=== PATIENT | female | born 1950 | race Caucasian/White ===

== ENCOUNTER 2020-01-19 14:10 | Observation (INO) | payer MEDICARE, SELFPAY ==
[2020-01-19] VITALS (8 sets, daily range): BP systolic 94–141; BP diastolic 51–65; PULSE 78–98; RESP 12–23; TEMP 35.6–36.5; O2SAT 95–100; BMI 43.7
--- NOTE | ~2020-01-19 | CT_ITS ---
EXAMINATION: CT facial bones w con DATE: 01/19/2020 16:04 INDICATION: Right facial pain and swelling TECHNIQUE: Computed tomography (CT) of the facial bones was performed with 75 cc Omnipaque 350 intrav enous contrast. The dose-length product was 607.00 mGy-cm. Automated exposure control and iterative r econstruction technique were employed. COMPARISON: None FINDINGS: There is mild inflammation of the right facial soft tissues without discrete abscess. There are multiple dental caries. There is mucosal thickening of the right maxillary sinus. Orbits are sym metric without disconjugate gaze. No post septal abnormalities. Nonenlarged cervical lymph nodes are likely reactive. No significant vascular abnormality. No intracranial abnormalities identified. IMPRESSION: 1. Mild inflammation of the right facial soft tissues consistent with cellulitis. No evidence for wal led off fluid collection to suggest abscess. Reviewed, dictated and finalized at location A. IMPRESSION: 1. Mild inflammation of the right facial soft tissues consistent with celluliti s. No evidence for walled off fluid collection to suggest abscess.
--- NOTE | ~2020-01-19 | XR_ITS ---
EXAMINATION: XR chest 2V 01/19/2020 16:02 INDICATION: Right-sided chest pain PROCEDURE: AP and lateral views of the chest COMPARISON: Comparison to multiple prior studies sequentially, with oldest reviewed study dated 05/31. FINDINGS: The lungs are clear. The cardiomediastinal silhouette is within normal limits. There are no pleural effusions. There is no pneumothorax suspected. Status post median sternotomy for CABG. IMPRESSION: 1: NO ACUTE CARDIOPULMONARY DISEASE. Reviewed, dictated and finalized at location A.
--- NOTE | 2020-01-19 14:43 | ECG_ITS ---
Measurements Intervals [place] Rate: 89 P: -35 [place]: 142 QRS: 94 QRSD: 136 T: 15 QT: 429 QTc: 522 Interpretive Statements SINUS OR ECTOPIC ATRIAL RHYTHM RIGHT BUNDLE BRANCH BLOCK BASELINE ARTIFACT- I, II, III ABNORMAL ECG Electronically Signed On 01-19-2020 18:03:42 CDT by Kalpesh Weems D.O.
[2020-01-19 15:01] LABS: Basophils Percent Auto 0.5 % (0.2-1.2); Eosinophils Absolute Auto 0.2 K/mm3 (0-0.3); Eosinophils Percent Auto 2.2 % (0-4.4); Hematocrit 37.5 % (37.0-47.0); Immature Granulocyte Absolute 0.03 K/mm3 (0.00-0.031); Immature Granulocyte Percent A 0.4 % (0-0.5); Lymphocytes Absolute Auto 1.65 K/mm3 (0.9-3.2); Lymphocytes Percent Auto 20.2 % (18.3-44.2); Mean Corpuscular HGB Conc 34.7 g/dl (32-36); Mean Corpuscular Hemoglobin 29.1 pg (26-34); Mean Corpuscular Volume 83.9 fl (80-100); Mean Platelet Volume 8.8 fl (7.4-10.4); Monocytes Absolute Auto 0.5 K/mm3 (0.1-0.6); Monocytes Percent Auto 6.1 % (2.6-8.5); Neutrophils Absolute Auto 5.8 K/mm3 (1.3-6.7); Neutrophils Percent Auto 70.6 % (45.5-73.1); Platelet Count Result 252 k/mm3 (150-375); Red Blood Count 4.47 M/mm3 (4.2-5.4); Red Cell Distribution Width 12.8 % (11.5-14.5); White Blood Count 8.2 K/mm3 (4.5-10.0)
[2020-01-19 15:15] LABS: INR 1.2; Prothrombin Time 14.5 Seconds (11.1-14.7)
[2020-01-19 15:16] LABS: Anion Gap 8 mmol/L (8-16); Blood Urea Nitrogen 12 mg/dL (7-17); Calcium 9.1 mg/dL (8.4-10.2); Carbon Dioxide 34 mmol/L (22-30); Chloride 98 mmol/L (98-107); Estimated CRCL calculation 65 ml/min; Estimated Glomerular Filt Rate > 60; Glucose 147 mg/dL (65-105); Partial Thromboplastin Time 29.9 SECONDS (22.3-36.8); Potassium 2.7 mmol/L (3.4-5.0); Sodium 140 mmol/L (137-145)
[2020-01-19 15:25] LABS: Troponin I 0.014 ng/mL (0.000-0.034)
--- NOTE | 2020-01-19 15:26 | ED.GENADULT ---
HPI - General Adult General Chief complaint: Unspecified Stated complaint: facial swelling Time Seen by Provider: 01/19/20 15:17 Source: patient History of Present Illness HPI narrative: Patient is a 69 y/o female complaining of right facial pain and swelling starting this morning. She describes her pain as stabbing and burning. She rates pain as 10/10 when her face is touched, but no pain at rest. There is no alleviating or exacerbating factor. She has no fever, chills or vomiting. She states that she had toothache a few days ago, but toothache currently. Related Data Home Medications Medication Instructions Recorded Confirmed Vitamin D3 1,000 BYMOUTH DAILY 02/13/19 02/26/19 Allergies Allergy/AdvReac Type Severity Reaction Status Date / Time aspirin Allergy Severe Vomiting, Verified 01/19/20 15:04 hives, SOB mold Allergy Severe Difficulty Verified 01/19/20 15:04 Breathing peanut Allergy Severe Wheezing Verified 01/19/20 15:04 pollen extracts Allergy Severe Wheezing Verified 01/19/20 15:04 chocolate flavor Allergy Unknown Hives Verified 01/19/20 15:04 corn Allergy Unknown Hives Verified 01/19/20 15:04 Review of Systems Constitutional: Constitutional: Denies chills, Denies fever(s), Denies headache(s) and Denies weakness Eyes: Eyes: Denies blurry vision ENT: Reports dental pain (resolved), Reports facial pain, Denies headache(s) and Denies neck pain Cardiovascular: Cardiovascular: Denies chest pain and Denies dyspnea Respiratory: Respiratory: Denies cough and Denies dyspnea Gastrointestinal: Gastrointestinal: Denies abdominal pain, Denies diarrhea, Denies nausea and Denies vomiting Genitourinary: Genitourinary: Denies hematuria and Denies dysuria Musculoskeletal: Musculoskeletal: Denies back pain and Denies neck pain Neurologic: Denies headache(s) and Denies weakness [facility] Past Medical History Medical History (Updated 01/19/20 @ 18:19 by Alice Timmons MD) Anxiety and depression Asthma CAD (coronary artery disease) Diabetes mellitus type II, controlled Diverticulosis Hypertension TIA (transient ischemic attack) Surgical History Surgical History H/O carotid endarterectomy (~03/2012) History of cholecystectomy (~2002) History of dilatation and curettage x 5-6 History of endometrial ablation History of tonsillectomy Hx of CABG (~2017) Family History Family History Sibling Hypertension Father Family history of malignant neoplasm Patient's father is Mother Family history of lung cancer COPD (chronic obstructive pulmonary disease) Chorea Social History Social History Smoking packs per day: 1 Smoking cigarettes per day: 20.0 Years smoked: 25 Smoking pack-years: 25.00 Smoking status: Former smoker Tobacco type: cigarettes Second hand tobacco smoke exposure: Yes Smoking end date: 03/20/99 Alcohol intake: never Substance use: never Gender identity (if verbalized by the patient): Female Spiritual care concerns: No (Pt states that she is evangelical.) Agree to blood products: Yes Exam Const: General: no acute distress and well developed Orientation/consciousness: oriented to person, oriented to place, oriented to time and patient oriented x3 HENMT: Head: normocephalic Ears: external ears normal General nose exam: Normal external nose present Face and sinus: erythema on the right and Facial tenderness on exam of face and sinuses on the right Eyes: General: appearance normal, both eyes and all related structures Conjunctivae: conjunctivae normal Neck: Neck: normal visual inspection and full ROM Chest: Chest palpation & inspection: normal inspection of the chest and no tenderness Resp: Effort & Inspection: normal respiratory effort Auscultation: clear to auscultation bilaterally
[2020-01-19 15:47] LABS: Lactic Acid Reflex 2.5 mmol/L (0.7-2.1)
[2020-01-19] MEDS: POTASSIUM CHLORIDE 20 MEQ TABLET 40 MEQ PO (16:36)
[2020-01-19] MEDS: SODIUM CHLORIDE 0.9% IV 1,000 ML 999 ML IV CONT (16:36)
[2020-01-19 17:21] LABS: Troponin I 0.022 ng/mL (0.000-0.034)
--- NOTE | 2020-01-19 18:00 | PC.NURSE ---
This patient, Rosana Ashley, was admitted to Medical Room 340-01. Patient/family oriented to hospital policies and general routines including ID bracelet, bed and alarms, visiting hours, pain management, procedures, bathroom and other care routines, personal items, smoking policy, room service/diet, and visiting hours. Information on how to activate the Rapid Response Team has been discussed. Patient/Family are encouraged to report perceived risks to care and to ask questions if they do not understand what they are told or what they should do.
[2020-01-19 18:33] LABS: Reflex Lactic Acid Yes or No Add Lactic
[2020-01-19 18:55] LABS: Glucose Point of Care 129 (65-105)
[2020-01-19 19:30] LABS: Lactic Acid 2.1 mmol/L (0.7-2.1)
[2020-01-19 21:36] LABS: Troponin I < 0.012 ng/mL (0.000-0.034)
[2020-01-20] VITALS (9 sets, daily range): BP systolic 117–148; BP diastolic 50–66; PULSE 67–94; RESP 14–18; TEMP 36.1–36.5; O2SAT 98–100
--- NOTE | 2020-01-20 01:28 | PC.NURSE ---
Daylight Savings Time For Daylight Savings Time Ending in the Fall - Clocks are moved back. For Daylight Savings Time Beginning in the Spring - Clocks are moved ahead. For [facility], the time of change occurs at 0200 hrs. Time is taken from the room server. This entry on the patient's chart recognizes the change in time reflected during documentation. Example: 2 entries for vital signs may be charted for 0200 hrs.
[2020-01-20 07:46] LABS: Hematocrit 35.7 % (37.0-47.0); Mean Corpuscular HGB Conc 33.6 g/dl (32-36); Mean Corpuscular Hemoglobin 28.7 pg (26-34); Mean Corpuscular Volume 85.4 fl (80-100); Mean Platelet Volume 9.1 fl (7.4-10.4); Platelet Count Result 221 k/mm3 (150-375); Red Blood Count 4.18 M/mm3 (4.2-5.4); White Blood Count 7.3 K/mm3 (4.5-10.0)
[2020-01-20 07:58] LABS: Anion Gap 8 mmol/L (8-16); Blood Urea Nitrogen 14 mg/dL (7-17); Calcium 8.9 mg/dL (8.4-10.2); Carbon Dioxide 32 mmol/L (22-30); Chloride 100 mmol/L (98-107); Estimated CRCL calculation 54 ml/min; Estimated Glomerular Filt Rate 49; Glucose 100 mg/dL (65-105); Sodium 140 mmol/L (137-145)
[2020-01-20 09:01] LABS: Glucose Point of Care 89 (65-105)
--- NOTE | 2020-01-20 10:14 | PM.IMHP ---
H&P: HPI History of Present Illness Date/Time: 01/20/20 10:14 Chief complaint: Right facial cellulitis Narrative: Date of admission: 01/19/2020 Date of discharge: 01/20/2020 Rosana Ashley is a 69 year old female with history of coronary artery disease, type 2 diabetes mellitus, HTN, HLD, and asthma who presented to the emergency department on 01/19/2020 with complaints of right-sided facial swelling which she noticed upon awakening that morning. For the previous 2 days, she had been complaining of a toothache. she has poor dentition and she notes that recently her lateral incisor broke well eating the [place] intact. She has not seen a dentist in many years. Her toothache resolved at the onset of her facial swelling. She reports sharp pain when she touches the bridge of her nose or under her eye. She has been able to chew and swallow without difficulty or pain. She has not had any trouble breathing. She has not had any visual changes, ear pain, neck pain, or headache. She does endorse seasonal allergies and complains of sinus congestion. Her right eye has been watering. Upon presentation to the ED, vital signs stable, no leukocytosis, potassium low at 2.7, lactic acid mildly elevated at 2.5, and facial CT showed mild inflammation of the right facial soft tissues consistent with cellulitis and no evidence of walled-off fluid collection to suggest abscess, no postseptal abnormalities, multiple dental caries, and mucosal thickening of right maxillary sinus. She received IV vancomycin and Zosyn in the ED. Review of Systems Review of Systems: Narrative: All systems reviewed with pertinent positive and negatives as per HPI. Additionally, she denies nausea, vomiting, diarrhea, fever, chills. No abdominal pain. She denies dizziness, lightheadedness, or weakness. She complains of sinus congestion but denies any drainage. She endorses numbness and tingling in her lower extremities. She endorsed mild wheezing this morning that resolved. She denies dysuria, hematuria, or other irritative voiding symptoms. She denies chest pain or palpitations. [facility] Past Medical History Medical History (Updated 01/20/20 @ 11:11 by Lyndsey Dey PA-C) Anxiety and depression Asthma CAD (coronary artery disease) Diabetes mellitus type II, controlled With peripheral neuropathy Diverticulosis Hypertension Seasonal allergies TIA (transient ischemic attack) Surgical History Surgical History H/O carotid endarterectomy (~03/2012) History of cholecystectomy (~2002) History of dilatation and curettage x 5-6 History of endometrial ablation History of tonsillectomy Hx of CABG (~2016) Family History Family History Sibling Hypertension Father , Unknown history No problems noted. Mother Family history of lung cancer COPD (chronic obstructive pulmonary disease) Social History Social History (Updated 01/20/20 @ 10:44 by Lyndsey Dey PA-C) Social History: Ms. Ashley lives at home with her son, Presley, whom she designates as her surrogate decision maker. She would like to be a full code. Her PCP is Dr. Polanco. She is retired from [employer]. She is independent in her ADLs. She quit smoking 25 years ago. She does not use alcohol or drugs. Smoking packs per day: 1 Smoking cigarettes per day: 20.0 Years smoked: 25 Smoking pack-years: 25.00 Smoking status: Former smoker Tobacco type: cigarettes Second hand tobacco smoke exposure: Yes Smoking end date: 03/20/99 Alcohol intake: current Drinks per week: 0 Substance use: never Substance use type: does not use Living arrangements: with family Occupation/Education: retired Gender identity (if verbalized by the patient): Female Spiritual care concerns: No Agree to blood products: Yes Meds Home
[2020-01-20] MEDS: CHOLECALCIFEROL 1,000 UNITS TABLET 1000 UNITS BY MOUTH (10:27)
[2020-01-20] MEDS: CLOPIDOGREL BISULFATE 75 MG TABLET PO (10:27)
[2020-01-20 11:00] LABS: CRP 3.2 mg/dL (<1.0)
[2020-01-20] MEDS: POTASSIUM CHLORIDE 20 MEQ TABLET 40 MEQ PO (11:34)
[2020-01-20 11:48] LABS: Glucose Point of Care 173 (65-105)
[2020-01-20] MEDS: LORATADINE 5 MG TABLET PO (12:12)
[2020-01-20 16:48] LABS: Glucose Point of Care 168 (65-105)
[2020-01-20 20:14] LABS: Glucose Point of Care 192 (65-105)
[2020-01-20] MEDS: ACETAMINOPHEN 325 MG TABLET 650 MG PO (22:33)
[2020-01-20] MEDS: GABAPENTIN 300 MG CAPSULE PO (22:33)
[2020-01-20] MEDS: ESCITALOPRAM OXALATE 10 MG TABLET PO (22:33)
[2020-01-20] MEDS: ATORVASTATIN 40 MG TABLET PO (22:33)
[2020-01-20] MEDS: ARIPiprazole 5 MG TABLET PO (22:33)
[2020-01-21] VITALS: PULSE 74
[2020-01-21 04:00] VITALS: PULSE 75
[2020-01-21 06:00] VITALS: BP 137/79; PULSE 78; RESP 16; TEMP 36.3; O2SAT 99
[2020-01-21 06:10] LABS: Basophils Percent Auto 0.6 % (0.2-1.2); Eosinophils Absolute Auto 0.3 K/mm3 (0-0.3); Eosinophils Percent Auto 5.2 % (0-4.4); Hematocrit 34.8 % (37.0-47.0); Hemoglobin 11.7 g/dL (12.0-15.0); Immature Granulocyte Absolute 0.02 K/mm3 (0.00-0.031); Immature Granulocyte Percent A 0.3 % (0-0.5); Lymphocytes Absolute Auto 1.88 K/mm3 (0.9-3.2); Lymphocytes Percent Auto 29.9 % (18.3-44.2); Mean Corpuscular HGB Conc 33.6 g/dl (32-36); Mean Corpuscular Hemoglobin 28.7 pg (26-34); Mean Corpuscular Volume 85.3 fl (80-100); Mean Platelet Volume 8.9 fl (7.4-10.4); Monocytes Absolute Auto 0.5 K/mm3 (0.1-0.6); Monocytes Percent Auto 8.3 % (2.6-8.5); Neutrophils Absolute Auto 3.5 K/mm3 (1.3-6.7); Neutrophils Percent Auto 55.7 % (45.5-73.1); Platelet Count Result 197 k/mm3 (150-375); Red Blood Count 4.08 M/mm3 (4.2-5.4); Red Cell Distribution Width 12.8 % (11.5-14.5); White Blood Count 6.3 K/mm3 (4.5-10.0)
[2020-01-21 06:20] LABS: Hemoglobin A1C 6.3 % (<5.7)
[2020-01-21 06:25] LABS: Anion Gap 8 mmol/L (8-16); Blood Urea Nitrogen 20 mg/dL (7-17); CRP 2.4 mg/dL (<1.0); Calcium 8.4 mg/dL (8.4-10.2); Carbon Dioxide 30 mmol/L (22-30); Chloride 101 mmol/L (98-107); Estimated CRCL calculation 50 ml/min; Estimated Glomerular Filt Rate 45; Glucose 155 mg/dL (65-105); Potassium 3.1 mmol/L (3.4-5.0); Sodium 139 mmol/L (137-145)
[2020-01-21 08:00] VITALS: PULSE 78
[2020-01-21] MEDS: CHOLECALCIFEROL 1,000 UNITS TABLET 1000 UNITS BY MOUTH (08:52)
[2020-01-21] MEDS: LORATADINE 5 MG TABLET PO (08:52)
[2020-01-21] MEDS: CLOPIDOGREL BISULFATE 75 MG TABLET PO (08:52)
--- NOTE | 2020-01-21 11:36 | PM.IMPN ---
Progress Note: A&P Assessment and Plan (1) Elevated lactic acid level: Code(s): R79.89 - Other specified abnormal findings of blood chemistry Status: Resolved Assessment and Plan: Trending down Likely secondary to Facial cellulitis. (2) Cellulitis of face: Code(s): L03.211 - Cellulitis of face Status: Acute Assessment and Plan: Continue antibiotics Follow up in the outpatient setting with maxillofacial CT soft tissue shows no abscess formation. (3) Hypokalemia: Code(s): E87.6 - Hypokalemia Status: Acute Assessment and Plan: Replace as needed. (4) Bowel and bladder incontinence: Code(s): R32 - Unspecified urinary incontinence; R15.9 - Full incontinence of feces Status: Acute Assessment and Plan: Supportive care Follow up in the outpatient setting. (5) Coronary artery disease involving [place] coronary artery of [place] heart: Code(s): I25.10 - Atherosclerotic heart disease of [place] coronary artery without angina pectoris Status: Acute Assessment and Plan: Stable Continue home meds Chest pain free. (6) Essential hypertension: Code(s): I10 - Essential (primary) hypertension Status: Acute Assessment and Plan: Stable Continue to monitor Continue home meds. (7) Type 2 diabetes mellitus: Code(s): E11.9 - Type 2 diabetes mellitus without complications Status: Acute Assessment and Plan: Continue to monitor Accuchecks ACHS ISS as needed. Subjective Date/time seen: 01/21/20 11:36 I feel fine. Review of Systems Review of Systems: Narrative: 69 yo female with facial cellulitis. Constitutional: Comments: no fevers, no rigors, no chills. Eyes: Comments: no vision changes. ENT: Comments: no ear ache, no throat pain, nasal congestion. Cardiovascular: Comments: no chest pain. Respiratory: Comments: no cough, no sob. Gastrointestinal: Comments: no n/v/abdominal pain. Musculoskeletal: Comments: no joint or muscular pain. Integumentary/Breasts: Comments: no rashes. Neurologic: Comments: No sensor motor deficit. Endocrine: Comments: No heat or cols intolerance Hematologic/Lymphatic: Comments: No LAP Exam Narrative: Exam Narrative: Facial cellulitis. Const: General: cooperative, healthy appearing, comfortable, no acute distress, alert, awake and Physically active Nutritional Appearance: average body habitus Limitations: no limitations HENMT: Head: normal to inspection Ears: hearing grossly normal bilaterally General nose exam: Normal external nose present Face and sinus: other (R sided swelling.) Mouth: Yes Normal oral and palatal mucosa present Eyes: General: appearance normal, both eyes and all related structures Pupils: Equal, round and reactive pupils present EOM: EOMs intact bilaterally Neck: Neck: normal visual inspection, full ROM, no lymphadenopathy and no JVD Lymphatic: no lymphadenopathy noted Resp: Effort & Inspection: normal respiratory effort Auscultation: clear to auscultation bilaterally Cardio: Jugular venous distension: no JVD Heart sounds: S1 normal heart sound present and S2 normal heart sound present GI: Inspection: normal to inspection GI Palp: Yes Soft to palpation and Yes No hepatosplenomegaly present Skin: General skin exam: normal color Lesions: no lesions Rashes: no rashes Neuro: General: patient oriented x3 Cranial nerves: Yes CN's II-XII intact bilaterally and Yes Equal, round and reactive pupils present Cognition (Neuro): normal cognition Speech: normal speech Gait exam (Neuro): Normal gait present Motor exam (neuro): 5/5 motor strength present throughout Extrem: General: normal to inspection and no pedal edema Objective Data Vital Signs Vital Signs: Vital Signs - 24 hr 01/20/20 12:00 01/20/20 14:00 01/20/20 16:00 Temperature 97.0 F L Pulse Rate 92 80 77 Respiratory Rate 18 Blood Pressure 128/56 L Pulse Ox
[2020-01-21 11:57] LABS: Glucose Point of Care 208 (65-105)
[2020-01-21] MEDS: INSULIN ASPART (*BKC) 100 UNITS/ML SUB-Q (12:33)
[2020-01-21 14:00] VITALS: BP 125/57; PULSE 69; RESP 16; TEMP 36; O2SAT 100
[2020-01-21 17:46] LABS: Glucose Point of Care 191 (65-105)
[2020-01-21 20:09] LABS: Glucose Point of Care 216 (65-105)
[2020-01-21 21:06] VITALS: BP 149/70; PULSE 70; RESP 12; TEMP 36.4; O2SAT 97
[2020-01-21] MEDS: ESCITALOPRAM OXALATE 10 MG TABLET PO (21:27)
[2020-01-21] MEDS: ATORVASTATIN 40 MG TABLET PO (21:27)
[2020-01-21] MEDS: GABAPENTIN 300 MG CAPSULE PO (21:27)
[2020-01-21] MEDS: ARIPiprazole 5 MG TABLET PO (21:27)
[2020-01-21] MEDS: ACETAMINOPHEN 325 MG TABLET 650 MG PO (21:28)
[2020-01-22 05:13] VITALS: BP 135/60; PULSE 72; RESP 12; TEMP 36.1; O2SAT 98
[2020-01-22 07:54] LABS: Glucose Point of Care 172 (65-105)
[2020-01-22 08:19] LABS: Hematocrit 36.8 % (37.0-47.0); Hemoglobin 12.3 g/dL (12.0-15.0); Mean Corpuscular HGB Conc 33.4 g/dl (32-36); Mean Corpuscular Volume 86.8 fl (80-100); Platelet Count Result 240 k/mm3 (150-375); Red Blood Count 4.24 M/mm3 (4.2-5.4); Red Cell Distribution Width 12.8 % (11.5-14.5); White Blood Count 5.9 K/mm3 (4.5-10.0)
[2020-01-22] MEDS: CHOLECALCIFEROL 1,000 UNITS TABLET 1000 UNITS BY MOUTH (08:38)
[2020-01-22] MEDS: LORATADINE 5 MG TABLET PO (08:38)
[2020-01-22] MEDS: CLOPIDOGREL BISULFATE 75 MG TABLET PO (08:38)
[2020-01-22 08:47] LABS: Potassium 3.5 mmol/L (3.4-5.0)
[2020-01-22 08:48] LABS: Anion Gap 11 mmol/L (8-16); Blood Urea Nitrogen 18 mg/dL (7-17); Carbon Dioxide 31 mmol/L (22-30); Chloride 100 mmol/L (98-107); Estimated CRCL calculation 59 ml/min; Estimated Glomerular Filt Rate 55; Glucose 179 mg/dL (65-105); Magnesium 1.6 mg/dL (1.6-2.3); Sodium 142 mmol/L (137-145)
[2020-01-22] MEDS: INSULIN ASPART (*BKC) 100 UNITS/ML SUB-Q (12:01)
[2020-01-22 12:12] LABS: Glucose Point of Care 219 (65-105)
--- NOTE | 2020-01-22 13:33 | PM.DS ---
DS: Admitting Diagnosis Admitting Diagnosis Admitting Diagnosis: Right facial cellulitis DS: Discharge Diagnosis Discharge Diagnosis (1) Cellulitis of face: Code(s): L03.211 - Cellulitis of face Status: Acute Assessment and Plan: CT soft tissue of face shows right mild inflammation of facial soft tissues; no abscess noted. Started on IV zosyn from ED on 01/18. Patient has noted significant improvement in swelling. Afebrile since admission. No leukocytosis. VSS. Patient wishing to leave. Dr. Charles consulted. Exam shows mild erythema and swelling and warmth around right eye; no pain with EOM. No abscess noted in gingiva; minimal to no erythema noted on gingiva. Will switch to oral doxycycline (allergy to aspirin and apparent cross-reactivity with clindamycin) and Augmentin today through 01/25 Will provide referral to Dr. Charles for prompt evaluation and possible oral surgery F/u with PCP (2) Elevated lactic acid level: Code(s): R79.89 - Other specified abnormal findings of blood chemistry Status: Resolved Assessment and Plan: WNL after IVF. Likely secondary to Facial cellulitis. (3) Hypokalemia: Code(s): E87.6 - Hypokalemia Status: Acute Assessment and Plan: K 3.5 today. Given supplement today BMP on 01/24 Will resume lisinopril-HCTZ at discharge which she takes 3 times a week F/u with PCP (4) Bowel and bladder incontinence: Code(s): R32 - Unspecified urinary incontinence; R15.9 - Full incontinence of feces Status: Acute Assessment and Plan: Patient denies issues today Supportive care Follow up in the outpatient setting. (5) Coronary artery disease involving [place] coronary artery of [place] heart: Code(s): I25.10 - Atherosclerotic heart disease of [place] coronary artery without angina pectoris Status: Acute Assessment and Plan: Stable. Denies Chest pain/palpitations Continue home meds F/u with PCP and [employer] per their recommendations (6) Essential hypertension: Code(s): I10 - Essential (primary) hypertension Status: Acute Assessment and Plan: Stable. BP 130s sys this morning F/u with PCP Continue home meds. (7) Type 2 diabetes mellitus: Code(s): E11.9 - Type 2 diabetes mellitus without complications Status: Acute Assessment and Plan: BGL high 100s-low 200s. Accuchecks ACHS, hypoglycemia protocol, correctional insulin, diabetic diet Resume home regimen at discharge DS: Summary Hospital Course Reason for hospitalization: Preseptal/facial cellulitis Hospital Course: Patient is a 69 yo F history of coronary artery disease, type 2 diabetes mellitus, HTN, HLD, and asthma who presented to the emergency department on 01/19/2020 with complaints of right-sided facial swelling which she noticed upon awakening that morning. While in the ED, patient was found to have warm, edematous, and erythematous right face. CT of face showed mild inflammation of soft tissues without evidence of walled off fluid collection to suggest abscess. Patient placed on Zosyn in ED. Patient admitted under this setting. Please see H&P for further details. Patient was admitted to the hospitalist service for further evaluation and management. Patient had no leukocytosis and was afebrile throughout her stay; VSS as well. Patient continued on Zosyn throughout her hospital stay; she was transitioned to PO doxycycline and Augmentin through 01/25 to complete [address] of antibiotics[address] Dr[address] Charles (Oral surgeon) consulted for her dental caries but unable to round on patient in hospital; a referral was provided at discharge. Patient found to be hypokalemic durin
[2020-01-22] MEDS: POTASSIUM CHLORIDE 20 MEQ TABLET 40 MEQ PO (14:27)
== END 2020-01-22 15:40 | disposition home or self-care (01) ==
LOC: ANHED 16:55 → ANH3MED 17:27
PROVIDERS: Emergency Medicine; Physician Assistant; Admitting Provider Family Medicine; Emergency Provider Emergency Medicine; PCP Internal Medicine; Visit Provider Physician Assistant
DX: L03.211 Cellulitis of face (principal); K02.9 Dental caries, unspecified; E87.6 Hypokalemia; F41.8 Other specified anxiety disorders; I25.10 Atherosclerotic heart disease of native coronary artery without angina pectoris; E11.9 Type 2 diabetes mellitus without complications; K57.90 Diverticulosis of intestine, part unspecified, without perforation or abscess without bleeding; I10 Essential (primary) hypertension; R94.31 Abnormal electrocardiogram [ECG] [EKG]; E78.5 Hyperlipidemia, unspecified; J45.909 Unspecified asthma, uncomplicated; R79.89 Other specified abnormal findings of blood chemistry; R32 Unspecified urinary incontinence; R15.9 Full incontinence of feces; Z23 Encounter for immunization; Z86.73 Personal history of transient ischemic attack (TIA), and cerebral infarction without residual deficits; Z87.891 Personal history of nicotine dependence; Z95.1 Presence of aortocoronary bypass graft; Z79.4 Long term (current) use of insulin; Z79.02 Long term (current) use of antithrombotics/antiplatelets
CPT/HCPCS: 36415; 70487; 71046; 80048; 83036; 83605; 83735; 84484; 85025; 85027; 85610; 85730; 86140; 87040; 90471; 90653; 93005; 96365; 96366; 96375; 99285; A9270; G0008; G0378; J1815; J2543; J3370; J7030; Q9967

== ENCOUNTER 2020-06-28 12:53 | Emergency (ER) | payer MEDICARE, SELFPAY ==
--- NOTE | ~2020-06-28 | CT_ITS ---
EXAMINATION: CT abdomen pelvis w con INDICATION: Left lower quadrant pain TECHNIQUE: Computed tomographic images of the abdomen and pelvis were obtained after the administrati on of 100 cc of Omnipaque 350 intravenous contrast. The dose-length product (DLP) was 1378.49 mGy-cm. Automated exposure control and iterative reconstruction technique were employed. COMPARISON: None available FINDINGS: The lung bases are clear. The heart size is normal. There is a small sliding hiatal hernia. The liver, spleen, pancreas, and adrenal glands are normal. The gallbladder is surgically absent. Th ere is a 5.2 cm exophytic cyst of the right kidney. There is a 1.2 cm soft tissue attenuation lesion in the interpolar region of the left kidney. No pathologically enlarged abdominal or pelvic lymph nod es are identified. There are no dilated loops of bowel. Colonic diverticulosis is present. There is w all thickening of the sigmoid colon with adjacent fat stranding. No free intraperitoneal gas is ident ified. There is a midline epigastric hernia containing fat. There is severe lumbar spondylosis. IMPRESSION: 1. Uncomplicated acute sigmoid diverticulitis. 2. Soft tissue attenuation lesion in the interpolar region of the left kidney which could be a protei naceous cyst versus solid neoplasm. Recommend nonemergent MRI or CT without and with contrast. Reviewed, dictated and finalized at location A. IMPRESSION: 1. Uncomplicated acute sigmoid diverticulitis. 2. Soft tissue attenuation lesion in the interpolar region of the left kidney w hich could be a proteinaceous cyst versus solid neoplasm. Recommend nonemergent MRI or CT without and with contrast.
[2020-06-28 12:56] VITALS: BP 144/86; PULSE 104; RESP 18; TEMP 36.3; O2SAT 96
[2020-06-28 13:16] LABS: Basophils Percent Auto 0.4 % (0.2-1.2); Eosinophils Absolute Auto 0.1 K/mm3 (0-0.3); Eosinophils Percent Auto 0.8 % (0-4.4); Hematocrit 39.1 % (37.0-47.0); Hemoglobin 13.1 g/dL (12.0-15.0); Immature Granulocyte Absolute 0.05 K/mm3 (0.00-0.031); Immature Granulocyte Percent A 0.4 % (0-0.5); Lymphocytes Absolute Auto 2.35 K/mm3 (0.9-3.2); Lymphocytes Percent Auto 21.1 % (18.3-44.2); Mean Corpuscular HGB Conc 33.5 g/dl (32-36); Mean Corpuscular Hemoglobin 28.2 pg (26-34); Mean Corpuscular Volume 84.1 fl (80-100); Mean Platelet Volume 9.2 fl (7.4-10.4); Monocytes Absolute Auto 0.6 K/mm3 (0.1-0.6); Monocytes Percent Auto 4.9 % (2.6-8.5); Neutrophils Absolute Auto 8.1 K/mm3 (1.3-6.7); Neutrophils Percent Auto 72.4 % (45.5-73.1); Platelet Count Result 244 k/mm3 (150-375); Red Blood Count 4.65 M/mm3 (4.2-5.4); Red Cell Distribution Width 12.4 % (11.5-14.5); White Blood Count 11.1 K/mm3 (4.5-10.0)
[2020-06-28 13:25] LABS: Alanine Aminotransferase 17 U/L (4-35); Albumin Level 4.2 g/dL (3.5-5.1); Alkaline Phosphatase 58 U/L (38-126); Anion Gap 12 mmol/L (8-16); Aspartate Amino Transferase 25 U/L (14-36); Bilirubin,Total 0.7 mg/dL (0.2-1.3); Blood Urea Nitrogen 22 mg/dL (7-17); Calcium 8.7 mg/dL (8.4-10.2); Carbon Dioxide 20 mmol/L (22-30); Chloride 105 mmol/L (98-107); Estimated CRCL calculation 53 ml/min; Estimated Glomerular Filt Rate 49; Glucose 240 mg/dL (65-105); Lipase 119 U/L (23-300); Potassium 4.1 mmol/L (3.4-5.0); Sodium 137 mmol/L (137-145)
--- NOTE | 2020-06-28 16:01 | ED.ABDPAIN ---
HPI - Abdominal Pain General Chief Complaint: Abdominal Pain Stated Complaint: severe left abd pain x2 days Time Seen by Provider: 06/28/20 15:59 Source: patient Mode of arrival: ambulatory Limitations: no limitations History of Present Illness HPI narrative: Patient is a 70-year-old female complaining of left lower quadrant pain, sharp, radiating to her left lower extremity, 4 out of 10, started proximately 2 days ago. Patient denies any chest pain, shortness of breath, nausea, vomiting, diarrhea, urinary symptoms, fever or chills. Related Data Home Medications Medication Instructions Recorded Confirmed Vitamin D3 1 tablet BYMOUTH DAILY 02/13/19 05/29/20 Humalog U-100 Insulin 5 units SUBCUT TID 01/19/20 05/29/20 Allergies Allergy/AdvReac Type Severity Reaction Status Date / Time aspirin Allergy Severe Vomiting, Verified 05/29/20 09:11 hives, SOB mold Allergy Severe Difficulty Verified 05/29/20 09:11 Breathing peanut Allergy Severe Wheezing Verified 05/29/20 09:11 pollen extracts Allergy Severe Wheezing Verified 05/29/20 09:11 chocolate flavor Allergy Unknown Hives Verified 05/29/20 09:11 corn Allergy Unknown Hives Verified 05/29/20 09:11 Review of Systems Review of Systems: All systems reviewed & are unremarkable except as noted in HPI and below Constitutional: Constitutional: Denies body ache(s), Denies chills, Denies excessive sweating, Denies fatigue, Denies fever(s), Denies headache(s), Denies lethargy, Denies malaise, Denies weakness and Denies weight loss Eyes: Eyes: Denies blurry vision, Denies change in vision and Denies loss of vision ENT: Denies dizziness, Denies ear discharge, Denies headache(s), Denies lip swelling, Denies epistaxis, Denies nasal congestion, Denies neck pain, Denies throat swelling and Denies tongue swelling Cardiovascular: Cardiovascular: Denies chest pain, Denies chest pain at rest, Denies chest pain with activity, Denies diaphoresis, Denies rapid heart rate, Denies edema, Denies irregular heart rhythm, Denies lightheadedness, Denies palpitations, Denies dyspnea and Denies dyspnea on exertion Respiratory: Respiratory: Denies chest congestion, Denies cough, Denies hemoptysis, Denies dyspnea and Denies dyspnea on exertion Gastrointestinal: Gastrointestinal: Denies melena, Denies hematochezia, Denies diarrhea, Denies nausea, Denies vomiting and Denies hematemesis Musculoskeletal: Musculoskeletal: Denies abnormal gait, Denies deformity, Denies joint swelling, Denies limited range of motion, Denies neck pain and Denies numbness Neurologic: Denies Abnormal speech present, Denies abnormal gait, Denies confusion, Denies dizziness, Denies headache(s), Denies focal weakness, Denies loss of vision, Denies numbness, Denies Other visual disturbances, Denies Sensory deficit (Neuro) and Denies weakness Psychiatric: Psychiatric: Denies confusion, Denies depression, Denies auditory hallucinations, Denies homicidal ideation and Denies suicidal ideation Endocrine: Endocrine: Denies cold intolerance, Denies excessive sweating, Denies fatigue, Denies heat intolerance and Denies palpitations Hematologic/Lymphatic: Hematologic/Lymphatic: Denies easy bleeding and Denies easy bruising Allergic/Immunologic: Allergic/Immunologic: Denies lip swelling, Denies throat swelling and Denies tongue swelling PMFSH Past Medical History Medical History Anxiety and depression Asthma CAD (coronary artery disease) Diverticulosis Hypertension Seasonal allergies TIA (transient ischemic attack) Surgical History Surgical History H/O carotid endarterectomy (~03/2012) History of cholecystectomy (~2002) History of dilatation and curettage x 5-6 History of endometrial ablation History of tonsillectomy Hx of CABG (~2017) Family History Family History Sib
--- NOTE | 2020-06-28 16:55 | PC.NURSE ---
PT STATES UNABLE TO URINATE AT THIS TIME AND WILL TRY AGAIN AFTER RECEIVING IVF
[2020-06-28] MEDS: SODIUM CHLORIDE 0.9% IV 1,000 ML 999 ML IV CONT (17:25)
--- NOTE | 2020-06-28 18:24 | PC.NURSE ---
PT STATES UNABLE TO URINATE AT THIS TIME. REFUSES STRAIGHT CATH. WILL CONTINUE TO MONITOR
[2020-06-28 18:31] VITALS: BP 122/63; PULSE 79; RESP 21; O2SAT 97
[2020-06-28 19:05] VITALS: BP 112/51; PULSE 89; RESP 20; O2SAT 100
[2020-06-28 19:37] LABS: Add Urine Microscopic? YES; Appearance Urine Clear (Clear); Bilirubin Urine Negative (Negative); Blood Urine Negative (Negative); Color Urine Yellow (Yellow); Glucose Urine UA Negative (Negative); Ketones Urine Negative (Negative); Leukocyte Esterase Ur Trace LEU/UL (Negative); Mucus Urine Rare /lpf; Nitrate Urine Negative (Negative); Protein Urine 1+ mg/dL (Negative); Squamous Epithelial Cell Urine Moderate /hpf (Few); Urobilinogen Urine Negative mg/dL (<2.0)
[2020-06-28 19:38] LABS: Specific Grav Ur > 1.060 (1.001-1.035)
[2020-06-28] MEDS: metroNIDAZOLE 500 MG/ISO 100ML 500 MG/100 ML BAG 100 MG IVPB (20:15)
[2020-06-28 21:53] VITALS: BP 124/64; PULSE 90; RESP 16; TEMP 36.6; O2SAT 97
== END 2020-06-28 22:00 | disposition home or self-care (01) ==
PROVIDERS: Emergency Provider Emergency Medicine; PCP Internal Medicine
DX: K57.32 Diverticulitis of large intestine without perforation or abscess without bleeding (principal); J45.909 Unspecified asthma, uncomplicated; I25.10 Atherosclerotic heart disease of native coronary artery without angina pectoris; K57.90 Diverticulosis of intestine, part unspecified, without perforation or abscess without bleeding; I10 Essential (primary) hypertension; Z86.73 Personal history of transient ischemic attack (TIA), and cerebral infarction without residual deficits; Z95.1 Presence of aortocoronary bypass graft; Z87.891 Personal history of nicotine dependence; Z79.4 Long term (current) use of insulin; N28.9 Disorder of kidney and ureter, unspecified
CPT/HCPCS: 36415; 74177; 80053; 81001; 83690; 85025; 87086; 87088; 96361; 96365; 96367; 99284; J0696; J7030; Q9967

== ENCOUNTER 2020-12-19 08:01 | Outpatient (CLI) | payer MEDICARE, SELFPAY ==
--- NOTE | 2021-01-05 12:08 | WPDSLEEPSTUD ---
Sleep Study Date of Study: 12/19/20 <Tere Mercedes DO - Last Filed: 01/05/21 13:43> Ordering Provider: HETAL Bartholomew <Tere Mercedes - Last Filed: 01/05/21 13:43> Interpreting Physician: Tere Mercedes DO <Tere Mercedes, - Last Filed: 01/05/21 13:43> Sleep Study Type: Split Polysomnogram <Tere Mercedes - Last Filed: 01/05/21 13:43> Height: 1.63 m <Tere Mercedes - Last Filed: 01/05/21 13:43> Weight: 113.398 kg <Tere Mercedes DO - Last Filed: 01/05/21 13:43> Body Mass Index: 42.9 <Tere Mercedes - Last Filed: 01/05/21 13:43> Neck Circumference (inches): 17 <Tere Mercedes DO - Last Filed: 01/05/21 13:43> Dysart: 11 <Tere Mercedes - Last Filed: 01/05/21 13:43> Reason for Sleep Study The patient has a history of obstructive sleep apnea. She is not currently on CPAP therapy. She has excessive daytime sleepiness and low energy. <Tere Mercedes DO - Last Filed: 01/05/21 13:43> Sleep History The patient is a 70-year-old female with hypertension, coronary artery disease with CABG x3, diabetes, depression, asthma and history of MARIYA that had a split study ordered by her primary care physician to restart treatment for sleep apnea. The patient had a PSG done on 07/07/2011 that showed an AHI of 7.5. She was scheduled for a CPAP titration due to oxygen desaturations. Her Pap titration was done on 08/13/2011 and she was titrated to CPAP 17 cm H2O. The patient states she frequently awakens from sleep short of breath. She frequently awakens at night with heartburn, belching cough. She constantly snores and is loud enough that others complain. She often has trouble sleeping when she has a cold. She often wakes up suddenly gasping for air throughout the night. She rarely has noticed heart palpitations. He constantly falls asleep during the day. She rarely falls asleep while driving. She rarely experiences loss of muscle tone when extremely emotional. She is currently retired. She often feels unable to move when waking up or falling asleep. She frequently experiences vivid dreamlike scenes upon awakening or falling asleep. He rarely has nightmares. She constantly has thoughts racing through her mind. She constantly feels sad, depressed and anxious. She often notices parts of her body jerk. She often kicks throughout the night. She rarely experiences crawling and aching feelings in her legs. She rarely experiences any leg pain throughout the night. He denies grinding her teeth during sleep and waking up with morning jaw pain. She is often bothered by pain during the day and often awakened by pain throughout the night. She frequently wakes up feeling stiff in the morning with sore and achy muscles. The patient goes to bed at 9:00 p.m. on the weekdays and weekends. It takes her 1-3 hours to fall asleep. She wakes up once throughout the night. When she wakes up she changes the channel on the television. She can usually fall back asleep within a couple minutes. She wakes up between 9-10 a.m. on both weekdays and weekends. She typically gets 5-6 hours of sleep per night. She states that she typically stays in bed all day after waking up in the morning. The patient currently lives with her son. The patient does consume a caffeinated beverage 2 hours prior to bedtime. She denies any physical exercise before bedtime. She does watch television before falling asleep. She does take naps in the afternoon and evening which are refreshing. <Tere Mercedes DO - Last Filed: 01/05/21 13:43> [facility] Past Medical History Medical History: Medical History (Updated 01/05/21 @ 13:05 by Tere Mercedes DO) Anxiety and depression Asthma CAD (coronary artery disease) Diverticulosis Hypertension MARIYA (obstructive sleep apnea) Seasonal allergies TIA (transient ischemic attack) <
[2021-01-05 12:38] VITALS: BMI 42.9
== END 2020-12-20 06:24 | disposition home or self-care (01) ==
LOC: ANHCSM 08:02
PROVIDERS: PCP Internal Medicine; Visit Provider Nurse Practitioner
DX: G47.33 Obstructive sleep apnea (adult) (pediatric) (principal)
CPT/HCPCS: 95811

== ENCOUNTER 2020-12-24 23:58 | Observation (INO) | payer MEDICARE, SELFPAY ==
--- NOTE | ~2020-12-24 | NM_ITS ---
EXAMINATION: NM monica stress w perfusion DATE: 12/25/2020 14:10 INDICATION: Chest pain. TECHNIQUE: Rest images were obtained following intravenous administration of 9.2 mCi Tc99m tetrofosmi n (Myoview). The patient was infused intravenously with Lexiscan (regadenoson). Then, 31.2 mCi Tc99m tetrofosmin (Myoview) was administered intravenously, and stress images were obtained. Data was recon structed into short axis and horizontal and vertical long axis SPECT images. Gated SPECT images were also obtained. COMPARISON: Myocardial perfusion imaging 07/07/2018 FINDINGS: There is a moderate-sized, mild, reversible perfusion defect involving apical lateral, mid anterolateral and inferolateral, and basal inferolateral segments of left ventricle, consistent with ischemia. No fixed perfusion defect to suggest infarct.. There is no segmental wall motion abnormali ty. Left ventricular ejection fraction measures >70%. IMPRESSION: 1. Moderate-sized area of mild ischemia involving apical lateral, mid anterolateral and inferolateral , and basal inferolateral segments of left ventricle. 2. Normal left ventricular ejection fraction measuring >70%. Reviewed, dictated and finalized at location A. IMPRESSION: 1. Moderate-sized area of mild ischemia involving apical lateral, mid anterolat eral and inferolateral, and basal inferolateral segments of left ventricle. 2. Normal left ventricular ejection fraction measuring >70%.
--- NOTE | ~2020-12-24 | XR_ITS ---
XR chest 2V DATE: 12/25/2020 00:54 INDICATION: Chest pain TECHNIQUE: PA and lateral views COMPARISON: 01/19/2020 2 view chest FINDINGS: Status post sternotomy and probable coronary bypass graft surgery. Normal heart size. There is aortic arch calcification. No hilar or mediastinal enlargement. The lungs are mildly hyperinflated but clear of infiltrate or consolidation. No pleural effusion or p ulmonary vascular congestion or pneumothorax. Degenerative spurring of the thoracic spine. Status post cholecystectomy. IMPRESSION: Status post sternotomy/CABG No active cardiopulmonary disease Aortic calcification Status post cholecystectomy Reviewed, dictated and finalized at location A.
[2020-12-25] VITALS (19 sets, daily range): BP systolic 102–154; BP diastolic 60–85; PULSE 61–93; RESP 14–20; TEMP 36.5–37; O2SAT 95–98; BMI 42.3
--- NOTE | 2020-12-25 | ECHO_ITS ---
Patient Info Name: Rosana Ashley Age: 70 years : 1950 Gender: Female Ht: 64 in Wt: 246 lbs BSA: 2.30 m2 HR: 72 bpm BP: 151 / 56 mmHg Heart Rhythm: Sinus Rhythm Technical Quality: Poor Exam Date: 12/25/2020 11:26 AM Exam Location: [facility] Pulmonary Patient Status: Outpatient Admit Date: 12/25/2020 Staff Ordering Physician: Michaela Manning DO Aircraft Electrician: Marcelle Syed RDCS Attending Provider: Warner Vasquez MD Referring Physician: Kerri GANDHI; Exam Type: CA echo dop color flow w con Study Info Indications R07.9 - Chest pain, unspecified Complete two-dimensional, color flow and Doppler transthoracic echocardiogram is performed with contrast to opacify the left ventricle and to improve the deliniation of the left ventricle endocardial borders. Contrast/Agitated Saline Contrast/Ag. Saline: Definity Amount: 2.00 ml Administered By: Keiry Ely RN Existing IV Access: Yes IV Access Condition: patent with no signs of infiltration Reason for Poor Study: patient body habitus Summary 1. Left ventricular chamber dimension is normal. 2. Left ventricular systolic function is normal, estimated at 60-65%. 3. There is mildly increased left ventricular wall thickness. 4. The left ventricular diastolic function is normal. 5. Right ventricular chamber dimension is mildly enlarged. 6. Left atrial chamber dimension is mildly enlarged. 7. There is mild aortic valve calcification. 8. The mitral valve annulus is severely calcified. 9. There is mild tricuspid valve regurgitation. Left Ventricle Left ventricular chamber dimension is normal. Left ventricular systolic function is normal, estimated at 60-65%. There is mildly increased left ventricular wall thickness. The left ventricular diastolic function is normal. Right Ventricle Right ventricular chamber dimension is mildly enlarged. Right ventricular systolic function is normal. Left Atria Left atrial chamber dimension is mildly enlarged. Right Atria Right atrial chamber dimension is normal. Atrial Septum Intact interatrial septum visualized by color flow imaging. Aortic Valve The aortic valve is trileaflet. There is moderate aortic valve sclerosis. There is no aortic valve stenosis. There is trace aortic valve regurgitation. There is mild aortic valve calcification. Pulmonic Valve The pulmonic valve is normal. There is no pulmonic valve stenosis. There is trace pulmonic regurgitation. Mitral Valve The mitral valve has thickened leaflets. There is no mitral valve stenosis. There is trace mitral valve regurgitation. The mitral valve annulus is severely calcified. Tricuspid Valve The tricuspid valve leaflets are normal. There is no significant tricuspid valve stenosis. There is mild tricuspid valve regurgitation. No pulmonary hypertension, estimated pulmonary arterial systolic pressure is 26 mmHg. Pericardium/Pleural The pericardium appears normal. There is no pericardial effusion. Inferior Vena Cava Normal inferior vena cava with >50% collapse upon inspiration consistent with normal right atrial pressure, 10 mmHg. Aorta The aortic root size at the sinus of Valsalva is normal. Left Ventricular Outflow Tract Name Value Normal
--- NOTE | 2020-12-25 00:30 | ECG_ITS ---
Measurements Intervals [place] Rate: 82 P: 96 DE: 152 QRS: 105 QRSD: 136 T: 6 QT: 381 QTc: 446 Interpretive Statements SINUS RHYTHM RIGHT AXIS DEVIATION RIGHT BUNDLE BRANCH BLOCK BASELINE ARTIFACT- I, II, III, AVL, AVF ABNORMAL ECG Electronically Signed On 12-25-2020 6:13:16 CDT by Kalpesh Weems D.O.
[2020-12-25 01:11] LABS: Basophils Percent Auto 0.4 % (0.2-1.2); Eosinophils Absolute Auto 0.2 K/mm3 (0-0.3); Eosinophils Percent Auto 2.3 % (0-4.4); Hematocrit 37.8 % (37.0-47.0); Hemoglobin 12.3 g/dL (12.0-15.0); Immature Granulocyte Absolute 0.02 K/mm3 (0.00-0.031); Immature Granulocyte Percent A 0.3 % (0-0.5); Lymphocytes Absolute Auto 2.18 K/mm3 (0.9-3.2); Mean Corpuscular HGB Conc 32.5 g/dl (32-36); Mean Corpuscular Hemoglobin 29.1 pg (26-34); Mean Corpuscular Volume 89.6 fl (80-100); Monocytes Absolute Auto 0.4 K/mm3 (0.1-0.6); Monocytes Percent Auto 5.4 % (2.6-8.5); Neutrophils Percent Auto 63.6 % (45.5-73.1); Platelet Count Result 244 k/mm3 (150-375); Red Blood Count 4.22 M/mm3 (4.2-5.4); Red Cell Distribution Width 12.2 % (11.5-14.5); White Blood Count 7.8 K/mm3 (4.5-10.0)
--- NOTE | 2020-12-25 01:12 | ED.CHESTPAIN ---
HPI - Chest Pain General Chief Complaint: Chest Pain Stated Complaint: chest pain Time Seen by Provider: 12/25/20 00:37 Source: patient History of Present Illness HPI narrative: Patient presents with substernal chest pain. Reports history of diabetes hypertension prior CABG 4 years ago. Reports her pain is similar to when she needed a CABG 4 years ago but slightly less intense. Pain has been present all day but has not resolved exacerbated with physical activities shortness of breath nausea vomiting or diaphoresis. Saw initially was just related to stress so she monitored her symptoms however since it resolved shortly to come the ER for evaluation she thought initially her symptoms related to stress however since that did not resolve she came to the ER for evaluation Related Data Home Medications Medication Instructions Recorded Confirmed Vitamin D3 1 tablet BYMOUTH DAILY 02/13/19 12/25/20 Humalog U-100 Insulin 10 units SUBCUT QAM 01/19/20 12/25/20 ipratropium-albuterol [Combivent See Rx Instructions .ROUTE 12/25/20 12/25/20 Respimat] .COMPLEX PRN Allergies Allergy/AdvReac Type Severity Reaction Status Date / Time aspirin Allergy Severe Vomiting, Verified 12/08/20 10:30 hives, SOB mold Allergy Severe Difficulty Verified 12/08/20 10:30 Breathing peanut Allergy Severe Wheezing Verified 12/08/20 10:30 pollen extracts Allergy Severe Wheezing Verified 12/08/20 10:30 chocolate flavor Allergy Unknown Hives Verified 12/08/20 10:30 corn Allergy Unknown Hives Verified 12/08/20 10:30 Review of Systems Review of Systems: CONSTITUTIONAL: Denies fever, chills, or sweats. EYES: Denies visual changes, redness, or discharge. ENT: Denies rhinorrhea, congestion, sore throat, or otalgia. CARDIOVASCULAR: Denies palpitations, or edema. RESPIRATORY: Denies cough GASTROINTESTINAL: Denies abdominal pain, nausea, vomiting, or diarrhea. GENITOURINARY: Denies dysuria or hematuria. SKIN: Denies rash or itching. MUSCULOSKELETAL: Denies back pain, joint pain, or myalgia. NEUROLOGIC: Denies headache, numbness, dizziness, or weakness. PSYCHIATRIC: Denies anxiety or depression. All systems reviewed & are unremarkable except as noted in HPI and below PMFSH Past Medical History Medical History Anxiety and depression Asthma CAD (coronary artery disease) Diverticulosis Hypertension Seasonal allergies TIA (transient ischemic attack) Surgical History Surgical History H/O carotid endarterectomy (~03/2012) History of cholecystectomy (~2002) History of dilatation and curettage x 5-6 History of endometrial ablation History of tonsillectomy Hx of CABG (~2016) Hx of tooth extraction Family History Family History Sibling Hypertension Father , Unknown history No problems noted. Mother Family history of lung cancer COPD (chronic obstructive pulmonary disease) Social History Social History Social History: Ms. Ashley lives at home with her son, Presley, whom she designates as her surrogate decision maker. She would like to be a full code. Her PCP is Dr. Polanco. She is retired from [email or web address]. She is independent in her ADLs. She quit smoking 25 years ago. She does not use alcohol or drugs. Smoking packs per day: 1 Smoking cigarettes per day: 20.0 Years smoked: 25 Smoking pack-years: 25.00 Smoking status: Former smoker Tobacco type: cigarettes Second hand tobacco smoke exposure: Yes Smoking end date: 03/20/99 Alcohol intake: current Alcohol use details: occasional Substance use: never Substance use type: does not use Gender identity (if verbalized by the patient): Female Spiritual care concerns: No Agree to blood products: Yes Exam Narrative: GEN
[2020-12-25 01:22] LABS: Anion Gap 9 mmol/L (8-16); Blood Urea Nitrogen 19 mg/dL (7-17); Calcium 9.2 mg/dL (8.4-10.2); Carbon Dioxide 29 mmol/L (22-30); Chloride 103 mmol/L (98-107); Estimated CRCL calculation 72 ml/min; Estimated Glomerular Filt Rate > 60; Glucose 235 mg/dL (65-110); Potassium 3.7 mmol/L (3.4-5.0); Sodium 141 mmol/L (137-145)
[2020-12-25 01:27] LABS: Prothrombin Time 13.4 Seconds (11.1-14.7)
[2020-12-25 01:35] LABS: Troponin I < 0.012 ng/mL (0.000-0.034)
[2020-12-25] MEDS: NITROGLYCERIN SL 0.4 MG TABLET SUBLINGUAL (03:07)
--- NOTE | 2020-12-25 03:07 | PC.NURSE ---
1st dose of 0.4mg SL Nitro given at this time. Pt rates pain 06/28. BP 111/67.
--- NOTE | 2020-12-25 03:13 | PC.NURSE ---
Pt reports CP as 04/30. BP 102/73. Per EDP Lukasz, hold 2nd dose of SL Nitro.
[2020-12-25] MEDS: HEPARIN SOD/D5W 100 UNITS/ML 25,000 UNITS/250 ML BAG 9 UNITS IV CONT (03:16)
[2020-12-25] MEDS: HEPARIN SODIUM 5,000 UNITS/ML VIAL 4000 UNITS IV PUSH (03:16)
--- NOTE | 2020-12-25 04:46 | PC.NURSE ---
This patient, Rosana Ashley, was admitted to IMU Room 207-01. Patient/family oriented to hospital policies and general routines including ID bracelet, bed and alarms, visiting hours, pain management, procedures, bathroom and other care routines, personal items, smoking policy, room service/diet, and visiting hours. Information on how to activate the Rapid Response Team has been discussed. Patient/Family are encouraged to report perceived risks to care and to ask questions if they do not understand what they are told or what they should do.
--- NOTE | 2020-12-25 04:48 | PM.IMHP ---
H&P: HPI History of Present Illness Date/Time: 12/25/20 04:48 Chief Complaint: Chest pain Narrative: Patient is 70-year-old female presents to the ER today with substernal chest pain. She states that about 4:00 p.m. yesterday in the evening while she was watching TV she started having chest tightness and heaviness in the lower part of his chest slightly radiated to the right side have been constant since then was not radiating to her jaw or her extremities was associated with shortness of breath but no no nausea or diaphoresis. The pain has been constant since then initially thought it could be related to stress however due to persistent pain she came to the ED for evaluation. She has similar kind of pain when she had her heart attack 4 years ago for which she ultimately underwent coronary artery bypass grafting. She states while she rolled into the ER she had an intense back where there was more stabbing pain in the area which subsequently subsided on its own. She was given nitro in the ER which has relieved her chest pain quite a bit. His initial workup revealed un remarkable EKG changes along with negative troponin. However due to underlying coronary artery disease status post CABG, diabetes mellitus on insulin with suspected she had on 7 angina and hence admitted for further evaluation and management. She is allergic to aspirin and is only on Plavix at home which he has been regularly taking. Review of Systems Review of Systems: - CONSTITUTIONAL: Denies weight loss, fever and chills. - HEENT: Denies changes in vision and hearing - RESPIRATORY: Reports SOB and denies cough. - CV: Denies palpitations and reports CP. - GI: Denies abdominal pain, nausea, vomiting and diarrhea. - : Denies dysuria and urinary frequency. - MSK: Denies myalgia and joint pain. - SKIN: Denies rash and pruritus. - NEUROLOGICAL: Denies headache and syncope. - PSYCHIATRIC: Denies recent changes in mood. Denies anxiety and depression. All systems reviewed & are unremarkable except as noted in HPI and below Constitutional: Constitutional: Reports fatigue and Reports weakness Neurologic: Reports weakness Endocrine: Endocrine: Reports fatigue [facility] Past Medical History Medical History Anxiety and depression Asthma CAD (coronary artery disease) Diverticulosis Hypertension Seasonal allergies TIA (transient ischemic attack) Surgical History Surgical History H/O carotid endarterectomy (~03/2012) History of cholecystectomy (~2002) History of dilatation and curettage x 5-6 History of endometrial ablation History of tonsillectomy Hx of CABG (~2016) Hx of tooth extraction Family History Family History Sibling Hypertension Father , Unknown history No problems noted. Mother Family history of lung cancer COPD (chronic obstructive pulmonary disease) Social History Social History Social History: Ms. Ashley lives at home with her son, Presley, whom she designates as her surrogate decision maker. She would like to be a full code. Her PCP is Dr. Polanco. She is retired from [employer]. She is independent in her ADLs. She quit smoking 25 years ago. She does not use alcohol or drugs. Smoking packs per day: 1 Smoking cigarettes per day: 20.0 Years smoked: 25 Smoking pack-years: 25.00 Smoking status: Former smoker Tobacco type: cigarettes Second hand tobacco smoke exposure: Yes Smoking end date: 03/20/99 Alcohol intake: current Alcohol use details: occasional Substance use: never Substance use type: does not use Gender identity (if verbalized by the patient): Female Spiritual care concerns: No Agree to blood products: Yes Meds Home Medications and All
[2020-12-25 05:26] LABS: Troponin I < 0.012 ng/mL (0.000-0.034)
[2020-12-25 07:14] LABS: Troponin I < 0.012 ng/mL (0.000-0.034)
[2020-12-25 07:18] LABS: D Dimer 0.52 ug/mL (<0.48)
--- NOTE | 2020-12-25 09:09 | PM.IMPN ---
Progress Note: A&P Additional Plan START OF DOCTOR ALFA?S PROGRESS NOTE Subjective: The patient complains of pinpoint chest pain on her lower sternum which is reproducible both appeared site from this she offers no other does complain in any other locations. She has lightheadedness, dizziness, diaphoresis, palpitations, since rapid heartbeat, cessation irregular P. I have explained to the patient her current medical condition plan of care and answered all her questions Objective: General: -Alert -No acute distress -No dyspnea -No tachypnea -obese Heart: -Regular rate -Regular rhythm -No murmurs -No gallops -No rubs Lungs: -No wheeze -No rhonchi -No rales Abdomen: -Normal bowel sounds in all four quadrants -No rebound -No guarding -No tenderness Extremities: -2/4 pulse in all four extremities -No clubbing -No cyanosis -No edema Additional Details / Additional Findings / Exceptions / Miscellaneous: Pertinent Laboratory Results / Pertinent Radiology Results / Pertinent Diagnostic Results / Pertinent Vital Signs: Blood pressure 131/65 however is labile Assessment / Plan: Chest pain. Appears to be musculoskeletal in nature as it is reproducible with palpation. Plavix and 5 mg p.o. daily plus Lipitor 40 mg P code q.h.s. plus Imdur 30 mg p.o. daily plus metoprolol 12.5 mg p.o. b.i.d.. Telemetry monitoring. Monitor cardiac enzymes. Echocardiogram pending Coronary artery disease, status post CABG. Lipitor 40 mg p.o. q.h.s. post Plavix and 5 mg p.o. daily plus Imdur 30 mg p.o. daily plus metoprolol 12.5 mg p.o. b.i.d. Anxiety Depression. Abilify 5 mg p.o. q.h.s. plus Lexapro 10 mg p.o. daily Diverticulosis Hypertension. Imdur 30 mg p.o. daily plus metoprolol 12.5 mg p.o. b.i.d. Seasonal allergies History of TIA. Plavix and 5 mg p.o. daily plus Lipitor 40 mg p.o. q.h.s. Peripheral vascular disease. Plavix and 5 mg p.o. daily plus Lipitor 40 mg p.o. q.h.s. Neuropathy. Gabapentin 300 mg p.o. q.h.s. Diabetes. Will check fingerstick glucose q.a.c. and HS and provide insulin sliding scale plus Lantus 40 units subcutaneously daily Asthma History of left renal lesion. Outpatient MRI to be arranged with her primary care physician. O Obesity. Patient becomes regarding lifestyle modification DVT prophylaxis. Lovenox 40 mg subcutaneously daily Disposition: The patient may potentially be a candidate for discharge on this day of December 26, 2011 1 pending result of her troponins and echocardiogram END OF DOCTOR ALFA?S PROGRESS NOTE Subjective Date/time seen: 12/25/20 09:09 Objective Data Vital Signs Vital Signs: Vital Signs - 24 hr 12/25/20 00:18 12/25/20 01:47 12/25/20 02:57 Temperature 98.1 F Pulse Rate 76 78 84 Respiratory Rate 20 16 18 Blood Pressure 131/77 142/63 H 124/60 Pulse Oximetry 97 97 97 12/25/20 03:06 12/25/20 03:12 12/25/20 03:39 Temperature Pulse Rate 80 89 81 Respiratory Rate 16 14 16 Blood Pressure 111/67 102/73 114/73 Pulse Oximetry 95 95 97 12/25/20 04:15 12/25/20 04:20 12/25/20 04:22 Temperature 97.7 F Pulse Rate 61 80 93 Respiratory Rate 20 15 Blood Pressure 154/85 H 112/68 Pulse Oximetry 98 96 12/25/20 04:30 12/25/20 06:00 12/25/20 07:49 Temperature 97.7 F Pulse Rate 72 86 Respiratory Rate 16 Blood Pressure 151/65 H Pulse Oximetry 96 98 12/25/20 08:00 Temperature Pulse Rate 73 Respiratory Rate Blood Pressure Pulse Oximetry Intake/Output Intake/Output: Intake & Output 12/22/20 12/23/20 12/24/20 12/25/20 23:59 23:59 23:59 23:59 Output Total 0 Balance 0 Meds/Results Medications: Active Medications Generic Name Dose Route Start Last Admin Trade Name Freq PRN Reason Stop Dose Admin Aripiprazole 5 mg 12/25/20 21:00 Aripiprazole 5 Mg Tablet PO HS JANA Atorvastatin Calcium 40 mg 12/25/20 21:00 Atorvastatin 40 Mg Tablet PO
[2020-12-25] MEDS: CLOPIDOGREL BISULFATE 75 MG TABLET PO (09:26)
[2020-12-25] MEDS: METOPROLOL TARTRATE 12.5 MG TABLET PO (09:26)
[2020-12-25] MEDS: ISOSORBIDE MONONITRATE 30 MG TAB.ER.24H PO (09:26)
[2020-12-25 09:41] LABS: Partial Thromboplastin Time 56.9 SECONDS (22.3-36.8)
--- NOTE | 2020-12-25 09:59 | EST_ITS ---
Patient Info Name: Rosana Ashley Age: 70 years : 1950 Gender: Female Ht: 64 in Wt: 246 lbs BSA: 2.30 m2 Exam Date: 12/25/2020 1:12 PM Exam Location: [facility] Stress Patient Status: Inpatient Admit Date: 12/25/2020 Staff Ordering Physician: Kranthi Dorsey MD Attending Provider: Warner Vasquez MD Exercise Technologist: Marcelle Syed RDCS Exercise Physician: Kranthi Dorsey MD Exam Type: CA stress monica w NM Study Info Indications R07.9 - Chest pain, unspecified A regadenoson stress test was performed. Summary 1. Please correlate with nuclear medicine images, reported separately. 2. No abnormal ST-T wave changes with lexiscan. Protocol: Lexiscan Stress ECG Details Stage: REST Duration (min): 1 min : 5 sec HR (bpm): 81 SBP (mmHg): 128 DBP (mmHg): 65 Stage: REST Duration (min): 10 min : 31 sec HR (bpm): 76 SBP (mmHg): 128 DBP (mmHg): 65 Stage: STAGE 1 Duration (min): 0 min : 59 sec HR (bpm): 84 SBP (mmHg): 128 DBP (mmHg): 69 Stage: RECOVERY Duration (min): 1 min : 0 sec HR (bpm): 92 SBP (mmHg): 128 DBP (mmHg): 69 Stage: RECOVERY Duration (min): 2 min : 0 sec HR (bpm): 89 SBP (mmHg): 123 DBP (mmHg): 65 Stage: RECOVERY Duration (min): 3 min : 0 sec HR (bpm): 89 SBP (mmHg): 128 DBP (mmHg): 61 Stage: RECOVERY Duration (min): 3 min : 4 sec HR (bpm): 89 SBP (mmHg): 128 DBP (mmHg): 61 Rest HR: 76 bpm Peak HR: 97 bpm Rest Sys BP: 128 mmHg Peak Sys BP: 128 mmHg Max Pred HR: 151 bpm % Max Pred HR: 64 % Target HR: 128 bpm Max RPP: 12,416 bpm*mmHg Target HR Summary: Hemodynamic response to exercise was normal BP Response: Normal blood pressure response Termination Reason: Completed protocol Cardiac Symptoms: None Total Time: 1 min : 0 sec Rest Bone BP: 65 mmHg Peak Bone BP: 69 mmHg Total Dose: 0.4 mg Resting ECG Normal sinus rhythm. Right bundle branch block. RAD. PACs. Stress ECG No abnormal ST/T wave changes with exercise. Arrhythmias None. Report Signatures
--- NOTE | 2020-12-25 10:01 | PM.CNCAR ---
Assessment and Plan Assessment and plan (1) CAD (coronary artery disease): Code(s): I25.10 - Atherosclerotic heart disease of [place] coronary artery without angina pectoris Status: Acute Assessment and Plan: History of bypass grafting. Chest pain is highly atypical to be cardiac in etiology but she does state that it felt similar to her previous anginal symptoms. Highly unusual given her reproducible pain though. (2) Hypertension associated with diabetes: Code(s): E11.59 - Type 2 diabetes mellitus with other circulatory complications; I15.2 - Hypertension secondary to endocrine disorders Status: Acute Assessment and Plan: Above goal. Continue current home blood pressure regimen (3) Hyperlipidemia associated with type 2 diabetes mellitus: Code(s): E11.69 - Type 2 diabetes mellitus with other specified complication; E78.5 - Hyperlipidemia, unspecified Status: Acute Assessment and Plan: Continue atorvastatin (4) Chest pain: Code(s): R07.9 - Chest pain, unspecified Status: Acute Assessment and Plan: As detailed above. Most likely musculoskeletal. Will perform a Lexiscan myocardial perfusion study for ischemic etiology given her known history of CAD and the fact that she states that her symptoms of chest pain are similar to her previous myocardial infarction pain. If no ischemia is noted, no further cardiac workup indicated. History of Present Illness History of Present Illness Consult date/time: 12/25/20 10:01 Requesting physician: Roger Lal MD Consult reason: chest pain Reason For Visit: unstable angina Narrative: Date of service 12/25/2020 Reason consultation: Chest pain Requesting provider Dr. Lal History: Patient is a 70-year-old female who has a history of coronary disease and bypass grafting. She was seen by Dr. Suarez in the past but has not been seen in several years. She had bypass grafting in 2017 she was admitted to hospital because of some severe sharp chest pain. She states that this is similar to her previous angina and she had another admission in 2019 for similar symptoms. Her symptoms last night started and lasted about 3 hours. She did state that the nitroglycerin did finally helped the symptoms but it was a gradual process. She states that it did hurt to push on her epigastric area and the symptoms did radiate to the right side of her chest. There is no other radiation down her arm back or neck. She does have some occasional dizziness upon standing but no syncope. She does have paroxysmal nocturnal dyspnea and recently diagnosed with sleep apnea but has not been treated to this point. She has no edema, palpitations, syncope. EKG shows right bundle-branch block. No acute ST or T-wave abnormalities. Negative troponin Review of Systems Review of Systems: All systems reviewed & are unremarkable except as noted in HPI and below Constitutional: Constitutional: Denies weakness Eyes: Eyes: Denies blurry vision ENT: Reports Normal hearing present Cardiovascular: Cardiovascular: Reports chest pain Respiratory: Respiratory: Denies dyspnea Gastrointestinal: Gastrointestinal: Denies abdominal pain Genitourinary: Genitourinary: Denies flank pain Musculoskeletal: Musculoskeletal: Denies neck pain Integumentary/Breasts: Skin/Breast: Denies dry skin Neurologic: Denies headache(s) Psychiatric: Psychiatric: Denies anxiety Endocrine: Endocrine: Denies fatigue Hematologic/Lymphatic: Hematologic/Lymphatic: Denies easy bleeding Allergic/Immunologic: Allergic/Immunologic: Denies GI upset with certain foods PMFSH Past Medical History Medical History Anxiety and depression Asthma CAD (coronary artery disease) Diverticulosis Hypertension Seasonal allergies TIA (transient ischemic attack) Surgical History Surgical History (Reviewed 12/25/20 @ 10:09 by Susan
[2020-12-25 10:46] LABS: Glucose Point of Care 112 mg/dl (65-105)
[2020-12-25] MEDS: TRIAMCINOLONE ACET 0.5% CREAM 15 GM TUBE 1 APPLIC TOPICAL (11:42)
[2020-12-25] MEDS: PERFLUTREN LIPID MICROSPHERES 1.5 ML VIAL DILUTED TO 10 ML TOTAL VOLUME IV PUSH (12:00)
[2020-12-25 12:25] LABS: Troponin I < 0.012 ng/mL (0.000-0.034)
--- NOTE | 2020-12-25 15:36 | PC.NURSE ---
On 12/25/20, the student, [Juani Chavarria], provided care and completed [facility] documentation on this patient. I have reviewed the student's documentation and agree with the findings.
--- NOTE | 2020-12-25 16:44 | PM.DS ---
DS: Admitting Diagnosis Discharge Date December 25, 2020 Admitting Diagnosis Chest pain, musculoskeletal however during routine testing patient was found to have abnormal cardiac stress DS: Summary Hospital Course Hospital Course: See discharge summary below Time Spent with Patient Time attestation: Total time spent providing and/or coordinating discharge services: START OF DOCTOR ALFA?S DISCHARGE SUMMARY Date of Admission: December 25, 2020 Date of Discharge: 4:45 p.m. on December 25, 2020 Primary Diagnosis: Chest pain, ACS ruled out however cardiac stress test demonstrates the following findings: 1. Moderate-sized area of mild ischemia involving apical lateral, mid anterolateral and inferolateral, and basal inferolateral segments of left ventricle. 2. Normal left ventricular ejection fraction measuring >70% Secondary Diagnosis: Coronary artery disease, status post CABG Anxiety Depression Diverticulosis Hypertension Seasonal allergies History of TIA Peripheral vascular disease Neuropathy Diabetes Asthma History of left renal lesion for which patient will need to schedule MRI of her left kidney with her primary care physician Obesity Consultations: Cardiology Disposition: The patient will be advised follow-up with cardiology as directed for history of coronary disease, status post CABG as well as her abnormal cardiac stress test during this hospitalization The patient will be advised follow-up with primary care physician 7-10 days post discharge to schedule MRI of her left kidney for diagnosis of left renal lesion Discharge Medications: Lantus 40 units subcutaneously daily Gabapentin 300 mg p.o. q.h.s. Flunisolide 0.05% cream apply to affected area b.i.d. Vitamin-D p.o.: Frequency and dosage undefined He will 10 units subcutaneously daily Combivent Respimat 20/100 mcg: Frequency undefined Imdur 30 mg p.o. daily Lisinopril/HCTZ: 20/12.5 mg p.o.: 3 times weekly Abilify 5 mg p.o. q.h.s. Lexapro 10 mg p.o. q.h.s. Plavix and 5 mg p.o. daily Lipitor 40 mg p.o. q.h.s. Metoprolol 12.5 mg p.o. b.i.d. END OF DOCTOR ALFA?S DISCHARGE SUMMARY DS: Data Data Completed and Pending Labs on day of discharge: Labs from last 24 hours 12/25/20 12/25/20 12/25/20 11:41 10:44 09:11 WBC RBC Hgb Hct MCV MCH MCHC RDW Plt Count MPV Immature Gran % (Auto) Neut % (Auto) Lymph % (Auto) Webb % (Auto) Eos % (Auto) Baso % (Auto) Lymph # (Auto) Webb # (Auto) Eos # (Auto) Baso # (Auto) Abs Immat Gran (auto) Absolute Neuts (auto) Absolute Nucleated RBC Nucleated RBC % PT INR APTT 56.9 H D-Dimer Sodium Potassium Chloride Carbon Dioxide Anion Gap BUN Creatinine Estim Creat Clear Calc Estimated GFR Glucose POC Capillary Glucose 112 H Calcium Troponin I < 0.012 12/25/20 12/25/20 12/25/20 06:16 06:16 04:39 WBC RBC Hgb Hct MCV MCH MCHC RDW Plt Count MPV Immature Gran % (Auto) Neut % (Auto) Lymph % (Auto) Webb % (Auto) Eos % (Auto) Baso % (Auto) Lymph # (Auto) Webb # (Auto) Eos # (Auto) Baso # (Auto) Abs Immat Gran (auto) Absolute Neuts (auto) Absolute Nucleated RBC Nucleated RBC % PT INR APTT D-Dimer 0.52 H Sodium Potassium Chloride Carbon Dioxide Anion Gap BUN Creatinine Estim Creat Clear Calc Estimated GFR Glucose POC Capillary Glucose Calcium Troponin I < 0.012 < 0.012 12/25/20 12/25/20 12/25/20 00:35 00:35 00:35 WBC 7.8 RBC 4.22 Hgb 12.3 Hct 37.8 MCV 89.6 MCH 29.1 MCHC 32.5 RDW 12.2 Plt Count 244 MPV 9.0 Immature Gran % (Auto) 0.3 Neut % (Auto) 63.6 Lymph % (Auto) 28.0 Webb % (Auto) 5.4 Eos % (
[2020-12-25 16:59] LABS: Glucose Point of Care 200 mg/dl (65-105)
[2020-12-25 18:52] LABS: Troponin I < 0.012 ng/mL (0.000-0.034)
== END 2020-12-25 18:41 | disposition home or self-care (01) ==
LOC: ANHED 12-25 00:37 → ANHIMU 12-25 03:15
PROVIDERS: Admitting Provider Internal Medicine; Emergency Provider Emergency Medicine; PCP Internal Medicine; Visit Provider Internal Medicine
DX: R07.89 Other chest pain (principal); I25.10 Atherosclerotic heart disease of native coronary artery without angina pectoris; E78.5 Hyperlipidemia, unspecified; E66.9 Obesity, unspecified; E11.42 Type 2 diabetes mellitus with diabetic polyneuropathy; F41.8 Other specified anxiety disorders; I10 Essential (primary) hypertension; J45.909 Unspecified asthma, uncomplicated; Z86.73 Personal history of transient ischemic attack (TIA), and cerebral infarction without residual deficits; Z95.1 Presence of aortocoronary bypass graft; Z79.4 Long term (current) use of insulin; Z87.891 Personal history of nicotine dependence; Z79.02 Long term (current) use of antithrombotics/antiplatelets; Z68.41 Body mass index [BMI] 40.0-44.9, adult
CPT/HCPCS: 36415; 71046; 78452; 80048; 82948; 84484; 85025; 85380; 85610; 85730; 93005; 93017; 93306; 96374; 99285; A9270; A9502; C8929; G0378; J1644; J2785; Q9957

== ENCOUNTER 2021-01-01 14:37 | Outpatient (CLI) | payer MEDICARE, SELFPAY ==
--- NOTE | ~2021-01-01 | MR_ITS ---
EXAMINATION: MR renal wo/w con DATE: 01/01/2021 16:19 INDICATION: Disorder of kidney and ureter, unspecified. TECHNIQUE: Magnetic resonance imaging (MRI) of the abdomen was performed without and with 20 mL Multi Nicole intravenous contrast. Sequences included coronal T2-weighted FS FSE, coronal and axial FIESTA F S, coronal LAVA-flex, axial LAVA, axial T2-weighted FSE, axial T1-weighted dual-echo FSPGR, axial STI R FSE, and axial DWI. Postcontrast sequences included coronal LAVA-flex and a time course of axial LA VA. COMPARISON: CT abdomen and pelvis 06/28/2020 FINDINGS: There is a small sliding hiatal hernia. The liver and spleen are normal. The gallbladder is absent. T he pancreas is normal. There are cysts in the kidneys measuring up to 4.5 cm on the right. There is a 12 mm hemorrhagic cyst in left kidney. There is diverticulosis of the colon without evidence of dive rticulitis. There are no pathologically enlarged lymph nodes. There is no free intraperitoneal fluid. There is a supraumbilical ventral hernia containing fat. IMPRESSION: 1. Benign cysts in the kidneys. Reviewed, dictated and finalized at location A.
== END 2021-01-01 14:38 | disposition home or self-care (01) ==
LOC: ANHIMG 14:42
PROVIDERS: PCP Internal Medicine; Visit Provider Nurse Practitioner
DX: N28.1 Cyst of kidney, acquired (principal)
CPT/HCPCS: 74183

== ENCOUNTER 2021-01-25 15:41 | Emergency (ER) | payer MEDICARE, SELFPAY ==
[2021-01-25 15:54] VITALS: BP 102/80; PULSE 71; RESP 14; TEMP 36.3; O2SAT 97
--- NOTE | 2021-01-25 20:12 | ED.EYEPROB ---
HPI - Eye Problem General Chief complaint: Eye Problems Stated complaint: eye swelling Time Seen by Provider: 01/25/21 19:49 Source: RN notes reviewed History of Present Illness HPI Narrative: Patient presents to emergency department from home for right eye swelling. Patient states symptoms began last night she noted some erythema of her right eye with thick greenish discharge states that her eye was matted shut this morning and that she keeps wiping drainage from the eye she also notes some mild swelling of the upper eyelid with some mild redness she denies any fevers or chills she states she does have some blurred vision to the right eye she denies any headaches fevers rhinorrhea sore throat or any other symptoms states she does not wear contacts or glasses Related Data Home Medications Medication Instructions Recorded Confirmed Vitamin D3 1 tablet BYMOUTH DAILY 02/13/19 12/29/20 Humalog U-100 Insulin 10 units SUBCUT QAM 01/19/20 12/29/20 Combivent Respimat See Rx Instructions .ROUTE 12/25/20 12/29/20 .COMPLEX PRN Allergies Allergy/AdvReac Type Severity Reaction Status Date / Time aspirin Allergy Severe Vomiting, Verified 12/29/20 11:06 hives, SOB mold Allergy Severe Difficulty Verified 12/29/20 11:06 Breathing peanut Allergy Severe Wheezing Verified 12/29/20 11:06 pollen extracts Allergy Severe Wheezing Verified 12/29/20 11:06 chocolate flavor Allergy Unknown Hives Verified 12/29/20 11:06 corn Allergy Unknown Hives Verified 12/29/20 11:06 Review of Systems Review of Systems: Gen.: Denies fevers or chills Eyes: See HPI ENT: Denies congestion or sore throat Respiratory: Denies shortness of breath or cough Musculoskeletal: Denies neck pain Neuro: Denies headache Skin: Denies rash Except as documented, all other systems reviewed and negative [facility] Past Medical History Medical History Anxiety and depression Asthma CAD (coronary artery disease) Diverticulosis Hypertension MARIYA (obstructive sleep apnea) Seasonal allergies TIA (transient ischemic attack) Surgical History Surgical History H/O carotid endarterectomy (~03/2012) History of cholecystectomy (~2002) History of dilatation and curettage x 5-6 History of endometrial ablation History of tonsillectomy Hx of CABG (~2017) Hx of tooth extraction Family History Family History Sibling Hypertension Father , Unknown history No problems noted. Mother Family history of lung cancer COPD (chronic obstructive pulmonary disease) Social History Social History Social History: Ms. Ashley lives at home with her son, Presley, whom she designates as her surrogate decision maker. She would like to be a full code. Her PCP is Dr. Polanco. She is retired from [employer]. She is independent in her ADLs. She quit smoking 25 years ago. She does not use alcohol or drugs. Smoking packs per day: 1 Smoking cigarettes per day: 20.0 Years smoked: 25 Smoking pack-years: 25.00 Smoking status: Former smoker Tobacco type: cigarettes Second hand tobacco smoke exposure: Yes Smoking end date: 03/20/99 Alcohol intake: current Alcohol use details: occasional Substance use: never Substance use type: does not use Gender identity (if verbalized by the patient): Female Spiritual care concerns: No Agree to blood products: Yes Exam Narrative: APPEARANCE: No acute distress, nontoxic, resting in bed EYES: Left eye is normal appearance, the right eye has conjunctival erythema with green discharge there is mild erythema and swelling of the upper eyelid but does not extend further out into the orbit or over the inferior eyelid no foreign body seen full range of motion of the eye without pa
[2021-01-25] MEDS: AMOXICILLIN/CLAVULANATE K 875-125 MG TAB 1 TABLET PO (20:17)
[2021-01-25] MEDS: ERYTHROMYCIN OPHTH OINTMENT 1 GM TUBE 1 APPLIC RIGHT EYE (20:17)
[2021-01-25 20:23] VITALS: BP 119/74; PULSE 80; RESP 17; O2SAT 98
--- NOTE | 2021-01-25 20:57 | PC.NURSE ---
pt left without dc papers. pt asked to sit for five Mins after admin of eye ointment. message left for the pt on home phone, to make sure she knows that scripts are at her pharmacy. encouraged to call myself or the hot metal charger to discuss scripts
--- NOTE | 2021-01-25 22:24 | PC.NURSE ---
Pt returned call. This RN gave new rx educaiton and instructions over the phone. 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
== END 2021-01-25 20:59 | disposition home or self-care (01) ==
PROVIDERS: Emergency Provider Emergency Medicine; PCP Internal Medicine
DX: H10.9 Unspecified conjunctivitis (principal); J45.909 Unspecified asthma, uncomplicated; I25.10 Atherosclerotic heart disease of native coronary artery without angina pectoris; I10 Essential (primary) hypertension; G47.33 Obstructive sleep apnea (adult) (pediatric); F32.A Depression, unspecified; F41.9 Anxiety disorder, unspecified; Z95.1 Presence of aortocoronary bypass graft; Z86.73 Personal history of transient ischemic attack (TIA), and cerebral infarction without residual deficits; Z79.4 Long term (current) use of insulin; Z87.891 Personal history of nicotine dependence
CPT/HCPCS: 99283; A9270

== ENCOUNTER 2021-02-02 13:45 | Outpatient (CLI) | payer MEDICARE, SELFPAY ==
--- NOTE | ~2021-02-02 | DEXA_ITS ---
Bone Density Report Name: Rosana Ashley Age: 70 Sex: Female Ethnicity: White Date of : 1950 Indication: postmenopausal; height loss; asthma or emphysema; Referring Provider: Keli Akers Study: Bone densitometry was performed. Exam Date: February 02, 2021 Accession number: [id number] Bone Density: Region BMD T-score Z-score Classification AP Spine (L3, L4) 1.321 2.0 4.2 Normal Femoral Neck (Left) 0.852 0.0 1.8 Normal Total Hip (Left) 1.125 1.5 3.0 Normal Total Hip Bilateral Avg 1.101 1.3 2.8 Normal Femoral Neck (Right) 0.854 0.0 1.8 Normal Total Hip (Right) 1.075 1.1 2.6 Normal World Health Organization criteria for BMD impression classify patients as: Normal (T-score at or above -1.0), Osteopenia (T-score between -1.0 and -2.5), or Osteoporosis (T-score at or below -2.5). 10-year Fracture Risk: FRAX not reported because: All T-scores for Spine Total, Hip Total, Femoral Neck at or above -1.0 Previous Exams: Region Exam Age BMD T-score BMD Change BMD Change Date g/cm2 vs Baseline vs Previous AP Spine(L3, L4) 02/02/2021 70 1.321 2.0 0.119(9.9%)# 0.101(8.3%)* 07/24/2018 68 1.220 1.1 0.017(1.4%)# 0.017(1.4%)# 02/06/2010 59 1.203 0.9 Total Hip(Left) 02/02/2021 70 1.125 1.5 0.084(8.1%)# 0.002(0.2%) 07/24/2018 68 1.123 1.5 0.082(7.9%)# 0.082(7.9%)# 02/06/2010 59 1.041 0.8 Total Hip(Right) 02/02/2021 70 1.075 1.1 0.028(2.7%)# -0.034(-3.0%)* 07/24/2018 68 1.109 1.4 0.062(5.9%)# 0.062(5.9%)# 02/06/2010 59 1.047 0.9 *Denotes significance at 95% confidence level, LSC for AP Spine = 0.022 g/cm2, LSC for Total Hip = 0.027 g/cm2 Clinical Information Provided by Patient: Has used the following medications: Vitamin D Has the following medical conditions: Asthma or Emphysema Patient maximum height was 64 Menopause Age: 47 No regular weight bearing exercise Does not regularly consume dairy products Onset of menses at age 11 Number of children 1 Impression: The patient has normal bone mass. The BMD for the Total Hip(Right) decreased, changing by -3.0% since the last DXA exam. Discussion: BONE DENSITY IS ABOVE THE MINIMUM DESIRABLE LEVEL AT ALL SKELETAL SITES TESTED. This patient?s bone mineral density is above the minimum desirable level (T-score -1.0 or better) at all sites measured. The patient should follow a healthful lifestyle (good nutrition with adequate calcium
== END 2021-02-02 13:46 | disposition home or self-care (01) ==
LOC: ANHIMG 13:48
PROVIDERS: PCP Internal Medicine; Visit Provider Nurse Practitioner
DX: Z78.0 Asymptomatic menopausal state (principal)
CPT/HCPCS: 77080

== ENCOUNTER 2021-04-06 | Day surgery (SDC) | payer MEDICARE, SELFPAY ==
[2021-04-01 15:13] VITALS: BMI 43.1
--- NOTE | 2021-04-05 19:25 | PM.HPGS ---
History of Present Illness History of Present Illness Consent: Risks, benefits, and alternatives have been discussed and questions answered. Patient agrees to proceed with procedure. Chief complaint: hx colon polyps Narrative: Rosana Ashley is a 70 year old female referred for colon cancer screening. her last colonoscopy was 10 years ago Review of Systems Review of Systems: All systems reviewed & are unremarkable except as noted in HPI and below PMFSH Past Medical History Medical History Anxiety and depression Asthma CAD (coronary artery disease) Diverticulosis Hypertension MARIYA (obstructive sleep apnea) Seasonal allergies TIA (transient ischemic attack) Surgical History Surgical History H/O carotid endarterectomy (~03/2012) History of cholecystectomy (~2002) History of dilatation and curettage x 5-6 History of endometrial ablation History of tonsillectomy Hx of CABG (~2016) Hx of tooth extraction Family History Family History Sibling Hypertension Father , Unknown history No problems noted. Mother Family history of lung cancer COPD (chronic obstructive pulmonary disease) Social History Social History Social History: Ms. Ashley lives at home with her son, Presley, whom she designates as her surrogate decision maker. She would like to be a full code. Her PCP is Dr. Polanco. She is retired from [employer]. She is independent in her ADLs. She quit smoking 25 years ago. She does not use alcohol or drugs. Smoking packs per day: 1 Smoking cigarettes per day: 20.0 Years smoked: 25 Smoking pack-years: 25.00 Smoking status: Former smoker Tobacco type: cigarettes Second hand tobacco smoke exposure: Yes Smoking end date: 03/20/99 Alcohol intake: former Alcohol use details: occasional Substance use: never Substance use type: does not use Living arrangements: with family Gender identity (if verbalized by the patient): Female Spiritual care concerns: No Agree to blood products: Yes Meds Home Medications and Allergies Home Medications Medication Instructions Recorded Confirmed Type Vitamin D3 1,000 unit BYMOUTH DAILY 02/13/19 04/06/21 History Humalog U-100 Insulin 10 units SUBCUT QAM 01/19/20 04/06/21 History clopidogrel 75 mg tablet 75 mg PO DAILY #90 tablet 12/22/20 04/06/21 Rx Combivent Respimat See Rx Instructions .ROUTE 12/25/20 04/06/21 History .COMPLEX PRN lisinopril 20 1 tablet PO 3XW #90 tablet 01/19/21 04/06/21 Rx mg-hydrochlorothiazide 12.5 mg tablet atorvastatin 40 mg tablet 40 mg PO HS #90 tablet 02/09/21 04/06/21 Rx insulin glargine 100 unit/mL (3 40 unit SUBCUT DAILY #15 ml 02/27/21 04/06/21 Rx mL) subcutaneous pen escitalopram oxalate 10 mg tablet 10 mg PO HS #90 tablet 03/02/21 04/06/21 Rx gabapentin 300 mg capsule 300 mg PO HS #90 cap 03/02/21 04/06/21 Rx Allergies Allergy/AdvReac Type Severity Reaction Status Date / Time aspirin Allergy Severe Vomiting, Verified 04/06/21 09:18 hives, SOB mold Allergy Severe Difficulty Verified 04/06/21 09:18 Breathing peanut Allergy Severe Wheezing Verified 04/06/21 09:18 pollen extracts Allergy Severe Wheezing Verified 04/06/21 09:18 chocolate flavor Allergy Unknown Hives Verified 04/06/21 09:18 corn Allergy Unknown Hives Verified 04/06/21 09:18 Exam Resp: Auscultation: clear to auscultation bilaterally Cardio: Rate: regular rate Rhythm: regular rhythm GI: GI Palp: Yes Soft to palpation and No Tenderness to palpation present (GI) Assessment and Plan Assessment and plan (1) Colon cancer screening: Code(s): Z12.11 - Encounter for screening for malignant neoplasm of colon Status: Acute Assessment and Plan: [place]
[2021-04-06 08:40] VITALS: BP 150/66; PULSE 98; RESP 18; TEMP 36.6; O2SAT 99; BMI 41.9
--- NOTE | 2021-04-06 08:53 | WPDANESEPPF ---
Anes - Initial Pre Proc Eval Procedure: Operation Date: 04/06/21 10:00 Proposed Procedures p Screening Colonoscopy - Toan Doss MD Date/Time: 04/06/21 08:53 Surgeon: Toan Doss MD Pre Op Diagnosis: hx colon polyps Patient Data Age: 70 Gender: F Height: 1.63 m Weight: 114 kg Allergies Allergy/AdvReac Type Severity Reaction Status Date / Time aspirin Allergy Severe Vomiting, Verified 12/29/20 11:06 hives, SOB mold Allergy Severe Difficulty Verified 12/29/20 11:06 Breathing peanut Allergy Severe Wheezing Verified 12/29/20 11:06 pollen extracts Allergy Severe Wheezing Verified 12/29/20 11:06 chocolate flavor Allergy Unknown Hives Verified 12/29/20 11:06 corn Allergy Unknown Hives Verified 12/29/20 11:06 Home Medications Medication Instructions Recorded Confirmed Type Vitamin D3 1,000 unit BYMOUTH DAILY 02/13/19 04/01/21 History Humalog U-100 Insulin 10 units SUBCUT QAM 01/19/20 04/01/21 History clopidogrel 75 mg tablet 75 mg PO DAILY #90 tablet 12/22/20 04/01/21 Rx Combivent Respimat See Rx Instructions .ROUTE 12/25/20 04/01/21 History .COMPLEX PRN lisinopril 20 1 tablet PO 3XW #90 tablet 01/19/21 04/01/21 Rx mg-hydrochlorothiazide 12.5 mg tablet atorvastatin 40 mg tablet 40 mg PO HS #90 tablet 02/09/21 04/01/21 Rx insulin glargine 100 unit/mL (3 40 unit SUBCUT DAILY #15 ml 02/27/21 04/01/21 Rx mL) subcutaneous pen escitalopram oxalate 10 mg tablet 10 mg PO HS #90 tablet 03/02/21 04/01/21 Rx gabapentin 300 mg capsule 300 mg PO HS #90 cap 03/02/21 04/01/21 Rx Patient hx anesthesia problems: none Family hx anesthesia problems: none Results Review: All pre-operative results and documents have been reviewed as part of the pre-operative evaluation. [facility] Past Medical History Medical History Anxiety and depression Asthma CAD (coronary artery disease) Diverticulosis Hypertension MARIYA (obstructive sleep apnea) Seasonal allergies TIA (transient ischemic attack) Surgical History Surgical History H/O carotid endarterectomy (~03/2012) History of cholecystectomy (~2002) History of dilatation and curettage x 5-6 History of endometrial ablation History of tonsillectomy Hx of CABG (~2016) Hx of tooth extraction Family History Family History Sibling Hypertension Father , Unknown history No problems noted. Mother Family history of lung cancer COPD (chronic obstructive pulmonary disease) Social History Social History Social History: Ms. Ashley lives at home with her son, Presley, whom she designates as her surrogate decision maker. She would like to be a full code. Her PCP is Dr. Polanco. She is retired from [employer]. She is independent in her ADLs. She quit smoking 25 years ago. She does not use alcohol or drugs. Smoking packs per day: 1 Smoking cigarettes per day: 20.0 Years smoked: 25 Smoking pack-years: 25.00 Smoking status: Former smoker Tobacco type: cigarettes Second hand tobacco smoke exposure: Yes Smoking end date: 03/20/99 Alcohol intake: former Alcohol use details: occasional Substance use: never Substance use type: does not use Living arrangements: with family Gender identity (if verbalized by the patient): Female Spiritual care concerns: No Agree to blood products: Yes Anes - Eval Final PreProcedure Day of Procedure 04/06/21 08:53 Patient weight: morbidly obese Heart: regular rate and rhythm Lungs: clear to auscultation Airway: Mallampati scale class II Neurological: alert and oriented Last oral intake: >/= 8 hours ASA classification: IV Emergent: no Anesthetic plan: proceed Anesthesia type and monitoring: general GIVS and standard monitoring Results Review:
[2021-04-06] MEDS: LACTATED RINGERS 1,000 ML 150 ML IV CONT (09:05)
[2021-04-06 09:07] LABS: Glucose Point of Care 92 mg/dl (65-105)
[2021-04-06 10:29] VITALS: BP 120/50; PULSE 70; RESP 16; O2SAT 99
[2021-04-06 10:39] VITALS: BP 146/65; PULSE 68; RESP 18; O2SAT 100
[2021-04-06 10:49] VITALS: BP 157/77; PULSE 70; RESP 18; O2SAT 100
[2021-04-06 10:56] LABS: Glucose Point of Care 93 mg/dl (65-105)
== END 2021-04-06 11:05 | disposition home or self-care (01) ==
PROVIDERS: PCP Internal Medicine; Visit Provider Internal Medicine Gastroenterology
PROC: 0DJD8ZZ Inspection of Lower Intestinal Tract, Via Natural or Artificial Opening Endoscopic (ICD-10-PCS; CPT 45378; principal; 2021-04-06 10:00)
DX: Z12.11 Encounter for screening for malignant neoplasm of colon (principal); K57.30 Diverticulosis of large intestine without perforation or abscess without bleeding; K58.9 Irritable bowel syndrome, unspecified; Z86.010 Personal history of colon polyps; F41.8 Other specified anxiety disorders; I25.10 Atherosclerotic heart disease of native coronary artery without angina pectoris; J45.909 Unspecified asthma, uncomplicated; I10 Essential (primary) hypertension; G47.33 Obstructive sleep apnea (adult) (pediatric); Z86.73 Personal history of transient ischemic attack (TIA), and cerebral infarction without residual deficits; Z79.4 Long term (current) use of insulin; Z90.49 Acquired absence of other specified parts of digestive tract; Z95.1 Presence of aortocoronary bypass graft; Z87.891 Personal history of nicotine dependence; E66.01 Morbid (severe) obesity due to excess calories; Z68.41 Body mass index [BMI] 40.0-44.9, adult
CPT/HCPCS: 45380; 82948; 88305; J2704; J7120

== ENCOUNTER → 2021-12-22 14:09 | Outpatient (CLI) | payer MEDICARE, SELFPAY ==
--- NOTE | ~2021-12-22 | CT_ITS ---
EXAMINATION: CT brain wo con DATE: 12/22/2021 14:26 INDICATION: Falls with head injury occurring twice in the past week. TECHNIQUE: Computed tomography (CT) of the head was performed without intravenous contrast. Sagittal and coronal reconstructions were performed. The mA was adjusted according to patient size. Iterative reconstruction technique was employed. The dose-length product was 599.57 mGy-cm. COMPARISON: head CT dated 11/12/2013 FINDINGS: Hyperostosis frontalis. No fracture. No acute intracranial hemorrhage, acute infarction or abnormal e xtra axial fluid collection. Ventricles are normal and symmetric. No mass/mass effect. Changes of josesito ateral intraocular lens replacement. The orbits and mastoid air cells are normal. Mild mucosal thicke analisa the left ethmoid sinus. Intracranial calcified cerebral atherosclerosis is noted. IMPRESSION: 1. Normal brain. No fracture or acute intracranial process. Reviewed, dictated and finalized at location A.
== END ==
PROVIDERS: PCP Internal Medicine; Visit Provider Nurse Practitioner
DX: S09.90XA Unspecified injury of head, initial encounter (principal); X58.XXXA Exposure to other specified factors, initial encounter
CPT/HCPCS: 70450

== ENCOUNTER 2022-12-06 15:58 | Outpatient (CLI) | payer MEDICARE, SELFPAY ==
[2022-12-06 16:40] LABS: Basophils Percent Auto 0.3 % (0.2-1.2); Eosinophils Absolute Auto 0.3 K/mm3 (0-0.3); Hematocrit 38.5 % (37.0-47.0); Hemoglobin 12.9 g/dL (12.0-15.0); Immature Granulocyte Absolute 0.03 K/mm3 (0.00-0.031); Immature Granulocyte Percent A 0.3 % (0-0.5); Lymphocytes Percent Auto 24.5 % (18.3-44.2); Mean Corpuscular HGB Conc 33.5 g/dl (32-36); Mean Corpuscular Hemoglobin 29.5 pg (26-34); Mean Corpuscular Volume 88.1 fl (80-100); Mean Platelet Volume 8.9 fl (7.4-10.4); Monocytes Absolute Auto 0.5 K/mm3 (0.1-0.6); Monocytes Percent Auto 5.6 % (2.6-8.5); Neutrophils Percent Auto 66.3 % (45.5-73.1); Platelet Count Result 231 k/mm3 (150-375); Red Blood Count 4.37 M/mm3 (4.2-5.4); Red Cell Distribution Width 13.1 % (11.5-14.5)
[2022-12-08 16:39] LABS: Vitamin D 25 Hydroxy 55.8 ng/mL
== END 2022-12-06 15:59 | disposition home or self-care (01) ==
PROVIDERS: PCP Nurse Practitioner Family; Visit Provider Nurse Practitioner Family
DX: E11.69 Type 2 diabetes mellitus with other specified complication (principal); E78.5 Hyperlipidemia, unspecified; G47.33 Obstructive sleep apnea (adult) (pediatric); I10 Essential (primary) hypertension; I25.10 Atherosclerotic heart disease of native coronary artery without angina pectoris; E55.9 Vitamin D deficiency, unspecified
CPT/HCPCS: 36415; 82306; 85025

== ENCOUNTER 2023-11-16 08:48 | Outpatient (CLI) | payer MEDICARE, SELFPAY ==
[2023-11-16 09:17] LABS: Alanine Aminotransferase 16 U/L (6-35); Albumin Level 4.2 g/dL (3.5-5.1); Alkaline Phosphatase 60 U/L (38-126); Anion Gap 16 mmol/L (4-12); Aspartate Amino Transferase 23 U/L (14-36); Bilirubin,Total 0.7 mg/dL (0.2-1.3); Blood Urea Nitrogen 17 mg/dL (7-17); Calcium 9.7 mg/dL (8.4-10.2); Carbon Dioxide 23 mmol/L (22-30); Chloride 98 mmol/L (98-107); Cholesterol 128 mg/dL (0-200); Estimated Glomerular Filt Rate 49; Glucose 306 mg/dL (65-110); HDL Direct 29 mg/dL; Potassium 3.7 mmol/L (3.4-5.0); Sodium 137 mmol/L (137-145); Triglycerides 159 mg/dL (<150)
[2023-11-16 09:28] LABS: LDL Cholesterol Direct 70 mg/dL
[2023-11-16 09:39] LABS: Basophils Absolute Auto 0.1 K/mm3 (0.0-0.1); Basophils Percent Auto 0.6 % (0.2-1.2); Eosinophils Absolute Auto 0.5 K/mm3 (0-0.3); Eosinophils Percent Auto 5.2 % (0-4.4); Hematocrit 40.6 % (37.0-47.0); Hemoglobin 13.6 g/dL (12.0-15.0); Immature Granulocyte Absolute 0.04 K/mm3 (0.00-0.031); Immature Granulocyte Percent A 0.4 % (0-0.5); Immature Platelet Fraction Pct 2.4 % (0.9-11.2); Lymphocytes Absolute Auto 1.65 K/mm3 (0.9-3.2); Lymphocytes Percent Auto 18.5 % (18.3-44.2); Mean Corpuscular HGB Conc 33.5 g/dl (32-36); Mean Corpuscular Hemoglobin 30.2 pg (26-34); Mean Platelet Volume 9.4 fl (7.4-10.4); Monocytes Absolute Auto 0.5 K/mm3 (0.1-0.6); Monocytes Percent Auto 5.4 % (2.6-8.5); Neutrophils Absolute Auto 6.3 K/mm3 (1.3-6.7); Neutrophils Percent Auto 69.9 % (45.5-73.1); Platelet Count Result 323 k/mm3 (150-375); Red Blood Count 4.51 M/mm3 (4.2-5.4); Red Cell Distribution Width 12.6 % (11.5-14.5); White Blood Count 8.9 K/mm3 (4.5-10.0)
[2023-11-16 10:04] LABS: Vitamin D 25 Hydroxy 41.1 ng/mL
[2023-11-16 10:44] LABS: Hemoglobin A1C 9.8 % (<5.7)
== END 2023-11-16 08:49 | disposition home or self-care (01) ==
PROVIDERS: PCP Nurse Practitioner Family; Visit Provider Nurse Practitioner Family
DX: E55.9 Vitamin D deficiency, unspecified (principal); R79.89 Other specified abnormal findings of blood chemistry; F32.9 Major depressive disorder, single episode, unspecified; G47.33 Obstructive sleep apnea (adult) (pediatric); I10 Essential (primary) hypertension; E11.9 Type 2 diabetes mellitus without complications; Z79.4 Long term (current) use of insulin; Z79.899 Other long term (current) drug therapy; I25.10 Atherosclerotic heart disease of native coronary artery without angina pectoris; F41.9 Anxiety disorder, unspecified; J45.909 Unspecified asthma, uncomplicated
CPT/HCPCS: 36415; 80053; 80061; 82306; 83036; 85025; 85055

== ENCOUNTER 2023-12-06 13:46 | Outpatient (CLI) | payer MEDICARE, SELFPAY ==
--- NOTE | ~2023-12-06 | US_ITS ---
EXAMINATION: US pelvic complete w TV DATE: 12/06/2023 14:41 INDICATION: Postmenopausal bleeding. TECHNIQUE: Multiple transabdominal and transvaginal sonographic images of the pelvis were obtained. COMPARISON: None. FINDINGS: TRANSABDOMINAL ULTRASOUND: The uterus measures 7.3 x 4.5 x 5.2 cm. There is no free fluid in the pelvis. TRANSVAGINAL ULTRASOUND: The endometrial complex measures 14 mm in thickness. The right ovary is not visualized. The left ovar y measures 2.2 x 1.0 x 1.7 cm. IMPRESSION: 1. Thickened endometrial complex. The differential diagnosis includes endometrial hyperplasia, polyp, and carcinoma. Biopsy is recommended. Reviewed, dictated and finalized at location A. IMPRESSION: 1. Thickened endometrial complex. The differential diagnosis includes endometri al hyperplasia, polyp, and carcinoma. Biopsy is recommended.
== END 2023-12-06 13:47 | disposition home or self-care (01) ==
PROVIDERS: PCP Nurse Practitioner Family; Visit Provider Nurse Practitioner Obstetrics & Gynecology
DX: N95.0 Postmenopausal bleeding (principal)
CPT/HCPCS: 76830; 76856

== ENCOUNTER 2023-12-23 04:45 | Day surgery (SDC) | payer MEDICARE, SELFPAY ==
--- NOTE | 2023-12-21 13:27 | PC.NURSE ---
Report to the Outpatient Waiting Room, entrance under the green pavilion located off [facility], at time _6:30 AM on date _12/23/23 . Planned Procedure Time: _8:30 AM .? Time changes happen often and if your time is changed the preop area will call you the afternoon before. - You and your visitor will be asked to self-screen and do not enter if you have any COVID symptoms. Please call surgeon if you need to reschedule. - A mask is optional within the hospital at this time. Patients may have clear liquids (water, carbonated beverages, clear teas, apple juice) until 3 hours prior to surgery( 5:30 AM) with a maximum of 20 ounces. - No food from midnight until time of surgery and no smoking - Infants may have breast milk until 4 hours before surgery, formula 6 hours prior to surgery. - Children will be allowed to drink immediately following surgery.? If applicable, please bring a bottle or sippy cup to assist with drinking. Juice, water, soda, and popsicles are readily available.? For infants on formula, please bring formula the day of surgery.? Pacifiers are allowed. Take only the following medications with a SIP of water on the morning of surgery: __BUSPIRONE,ESCITALOPRAM, INHALER IF NEEDED DO NOT STOP ANY OF YOUR OTHER PRESCRIPTION MEDICATIONS PRIOR TO SURGERY EXCEPT THE FOLLOWING Medications to discontinue per physician ___PT STATES HOLD PLAVIX 5 DAYS PRE OP PER DR PECK.LAST DOSE 12/17/23_PER PT____ Please no make-up, nail bengali, hairspray, perfume, deodorant, or body powder the day of surgery.? No jewelry (including any body piercings) or valuables the day of surgery, leave them at home.? Please take a shower or bath the night before, or the morning of, surgery with an antibacterial soap.? Wear comfortable, loose fitting clothing.? Children are encouraged to wear pajamas. - Jewelry must be removed prior to entering the operating room.? Rings and piercings that are not removed may be cut off. - The hospital will not accept responsibility for valuables.? - Please leave all valuables, including medications, at home the day of surgery. If you are going home after surgery, a licensed otr company truck driver must drive you home.? - NO public transportation without another adult if you receive anesthesia. - We recommend that an adult stay with you for 24 hours following discharge. - We also recommend that you do not drive, make important decision, drink alcoholic beverages, or take any drugs that were not prescribed by your health care provider for at least 24 hours after your discharge time. Follow any additional instructions given to you from your surgeon. Telephone instructions given to ____PATIENT and asked if any additional questions and then verbalized understanding. Patient advised to call surgeon office or pre surgery nurse liaison [phone] if any additional questions.
[2023-12-21 13:34] VITALS: BMI 41.7
[2023-12-23] MEDS: LACTATED RINGERS 1,000 ML 30 ML IV CONT (06:45)
[2023-12-23 07:29] LABS: Glucose Point of Care 215 mg/dl (65-105)
--- NOTE | 2023-12-23 07:35 | WPDHPUPDATE1 ---
History and Physical Update Update Date/Time: 12/23/23 07:35 History and Physical has been reviewed, including an updated exam of the patient. There are NO changes in the patient's condition. Risks, benefits, and alternatives have been discussed and questions answered. Patient agrees to proceed with procedure.
[2023-12-23 07:45] VITALS: BP 124/56; PULSE 80; RESP 16; TEMP 36.4; O2SAT 100
--- NOTE | 2023-12-23 08:06 | WPDANESEPPF ---
Anes - Initial Pre Proc Eval Procedure: Operation Date: 12/23/23 08:30 Proposed Procedures p Hysteroscopy, Dilation and Curettage with Removal of Any Endometrial Lesions if Necessary - Zack Kingsley MD Date/Time: 12/23/23 08:06 Surgeon: Zack Kingsley MD Pre Op Diagnosis: post menopausal bleeding,thickened endometrium Patient Data Age: 73 Gender: F Height: 1.63 m Weight: 110.25 kg Allergies Allergy/AdvReac Type Severity Reaction Status Date / Time aspirin Allergy Severe Vomiting, Verified 12/21/23 13:05 hives, SOB mold Allergy Severe Difficulty Verified 12/21/23 13:05 Breathing pollen extracts Allergy Severe Wheezing Verified 12/21/23 13:05 Home Medications Medication Instructions Recorded Confirmed Type blood sugar diagnostic (Blood #50 ea 12/06/22 11/16/23 Rx Glucose Test strips) blood-glucose meter (Blood Glucose #1 ea 12/06/22 11/16/23 Rx Monitoring kit) insulin syringe-needle U-100 0.5 #100 ea 12/06/22 11/16/23 Rx mL 31 gauge x 5/16 (Comfort EZ Insulin Syringe) lancets 31 gauge #100 ea 12/06/22 11/16/23 Rx blood sugar diagnostic (OneTouch #100 ea 01/03/23 11/16/23 Rx Verio test strips) blood-glucose meter (OneTouch #1 ea 01/03/23 11/16/23 Rx Verio Flex Meter) escitalopram oxalate 20 mg tablet 20 mg PO DAILY #90 tabs 07/15/23 12/21/23 Rx gabapentin 300 mg capsule 300 mg PO HS #90 caps 07/15/23 12/21/23 Rx insulin glargine 100 30 unit (0.3 mL) subcut QAM #15 mL 07/15/23 12/21/23 Rx unit-lixisenatide 33 mcg/mL subcutaneous pen (Soliqua 100/33) ipratropium 20 mcg-albuterol 100 See Rx Instructions .Route 07/15/23 12/21/23 Rx mcg/actuation mist for inhalation .COMPLEX PRN shortness of breath (Combivent Respimat) #4 grams pen needle, diabetic 29 gauge x #400 ea 07/15/23 11/16/23 Rx 1/2 (Comfort EZ Pen [place]) diphenoxylate-atropine 2.5 1 tablet PO TID PRN diarrhea #30 07/19/23 12/21/23 Rx mg-0.025 mg tablet (Lomotil) tabs lisinopril 20 1 tablet PO 3XW #90 tabs 07/27/23 12/21/23 Rx mg-hydrochlorothiazide 12.5 mg tablet clopidogrel 75 mg tablet 75 mg PO DAILY #90 tabs 09/12/23 12/21/23 Rx buspirone 7.5 mg tablet See Rx Instructions .Route 11/18/23 12/21/23 Rx .COMPLEX #60 tabs nystatin 100,000 unit/gram topical See Rx Instructions .Route 11/22/23 12/21/23 Rx powder .COMPLEX #180 grams atorvastatin 40 mg tablet 40 mg PO HS #90 tabs 12/12/23 12/21/23 Rx naproxen sodium 220 mg capsule 220 mg PO Q12H PRN Pain 12/21/23 12/21/23 History (Aleve) Laboratory Tests 12/23/23 07:23 POC Capillary Glucose 215 H mg/dl (65-105) Patient hx anesthesia problems: none Family hx anesthesia problems: none Results Review: All pre-operative results and documents have been reviewed as part of the pre-operative evaluation. [facility] Past Medical History Medical History Anxiety and depression Asthma CAD (coronary artery disease) Diverticulosis Hypertension MARIYA (obstructive sleep apnea) Seasonal allergies TIA (transient ischemic attack) Surgical History Surgical History H/O carotid endarterectomy (~03/2012) History of cholecystectomy (~2002) History of dilatation and curettage x 5-6 History of endometrial ablation History of tonsillectomy Hx of CABG (~2016) Hx of tooth extraction Family History Family History Sibling Hypertension Father , Unknown history No problems noted. Mother Family history of lung cancer COPD (chronic obstructive pulmonary disease) Social History Social History Social History: Ms. Ashley lives at home with her son, Presley, whom she designates as her surrogate decision maker. She would like to be a full code. Her PCP is Dr. Kent
[2023-12-23] MEDS: LIDOCAINE HCL 1% LOCAL INJ 20 ML VIAL 10 ML INFILTRATE (08:08)
[2023-12-23] MEDS: ceFAZolin 2 GM/D5W 50 ML 2 GM/50 ML BAG IVPB (08:14)
--- NOTE | 2023-12-23 08:52 | P.OP_ITS ---
Procedure Note - Detailed Date of Procedure 12/23/23 Pre-op Diagnosis post menopausal bleeding,thickened endometrium Post-op Diagnosis Other (1. Endometrial polyp) Procedure Performed Hysteroscopy and dilation and curettage and removal of endometrial lesion Surgeon Zack Kingsley MD Anesthesia MAC and Local Indications Postmenopausal bleeding, thickened endometrial stripe, inadequate sampling of endometrium with office biopsy Findings Large elongated endometrial polyp appearing lesion Description of Procedure After informed consent was obtained patient was taken to the operating room and adequate IV sedation was administered. Attention was turned to the vagina. Speculum was inserted. Single-tooth tenaculum placed on the anterior lip of the cervix. 10 cc of 1% lidocaine was injected at the cervical vaginal interface at the 2,5,8 and 10 position. The uterus was sounded to 6 cm. The cervix was dilated to an 5 Justice dilator. The hysteroscope was inserted into the cavity, With hydrodilation the h ysteroscope was advanced into the cavity. The findings were a large elongated polyp protruding from the lower uterus. part of this which looked consistent with a polyp was grabbed with the grasper a nd partially removed. With visualization with the hysteroscope there was larger piece of it up into the cavity. The of the the instrument small size was then used and the polyp structure was removed completely. The rest of the cavity was atrophic appearing. The hysteroscope was removed. A curettage was performed with minimal tissue. The single-tooth tenaculum was removed hemostasis was noted at the tenaculum site. Sponge count correct. The patient taken to recovery in stable condition. Estimated Blood Loss 5 Drains No Packing No Pathology Yes (shavings and curettings) Complications No immediate complications Condition Stable Disposition Same day [facility] Billing Surgery - Charge Forward: Surgery Billing
[2023-12-23 08:57] VITALS: BP 155/86; PULSE 82; RESP 18; O2SAT 98
[2023-12-23 09:10] LABS: Glucose Point of Care 215 mg/dl (65-105)
[2023-12-23 09:25] VITALS: BP 166/60; PULSE 94; RESP 18
[2023-12-23 09:45] VITALS: BP 152/55; PULSE 78; RESP 18
== END 2023-12-23 10:38 | disposition home or self-care (01) ==
PROVIDERS: PCP Nurse Practitioner Family; Visit Provider Obstetrics & Gynecology
PROC: 0U5B8ZZ Destruction of Endometrium, Via Natural or Artificial Opening Endoscopic (ICD-10-PCS; CPT 58563; principal; 2023-12-23 08:30)
DX: N84.0 Polyp of corpus uteri (principal); N95.0 Postmenopausal bleeding; I25.10 Atherosclerotic heart disease of native coronary artery without angina pectoris; I10 Essential (primary) hypertension; J45.909 Unspecified asthma, uncomplicated; F41.8 Other specified anxiety disorders; G47.33 Obstructive sleep apnea (adult) (pediatric); Z79.4 Long term (current) use of insulin; Z79.51 Long term (current) use of inhaled steroids; Z79.02 Long term (current) use of antithrombotics/antiplatelets; Z86.73 Personal history of transient ischemic attack (TIA), and cerebral infarction without residual deficits; Z95.1 Presence of aortocoronary bypass graft; Z87.891 Personal history of nicotine dependence; E66.01 Morbid (severe) obesity due to excess calories; Z68.41 Body mass index [BMI] 40.0-44.9, adult
CPT/HCPCS: 58558; 82948; 88305; J0690; J2003; J2704; J3010; J7120

== ENCOUNTER 2025-03-15 15:46 | Observation (INO) | payer MEDICARE, SELFPAY ==
[2025-03-15] VITALS (19 sets, daily range): BP systolic 55–155; BP diastolic 43–136; PULSE 69–96; RESP 13–21; TEMP 36.8; O2SAT 91–100
--- NOTE | ~2025-03-15 | XR_ITS ---
XR chest 1V portable 03/15/2025 19:51 Indication: Status post fall. Near syncope. Chest pain. Procedure: AP portable chest Comparison: 12/25/2020 Findings: Status post median sternotomy for CABG. Moderate cardiomegaly. No focal air space disease, pulmonary edema, pleural effusion or suspected pneumothorax. Impression: 1: No acute cardiopulmonary disease. Reviewed, dictated and finalized at location O. TIONS ARCHITECT CONSULTANT Impression: 1: No acute cardiopulmonary disease.
--- NOTE | ~2025-03-15 | CT_ITS ---
EXAMINATION: CT brain wo con DATE: 03/15/2025 16:08 INDICATION: Status post fall. TECHNIQUE: Computed tomography (CT) of the head was performed without intravenous contrast. The dose-length product was 529.67 mGy-cm. Automated exposure control and iterative reconstruction technique were employed. COMPARISON: CT dated 12/22/2021 FINDINGS: There are scattered mild periventricular and subcortical white matter changes, most likely related to small vessel ischemic disease (microangiopathy). No ventriculomegaly or midline shift. Basilar cisterns are patent. There is hyperostosis frontalis interna. There is intracranial atherosclerosis. Mild mucosal thickening of the paranasal sinuses. Mastoids are pneumatized. No depressed skull fractures. IMPRESSION: 1. No acute intracranial abnormality. Reviewed, dictated and finalized at location O. IN WASHER
--- NOTE | ~2025-03-15 | CT_ITS ---
EXAMINATION: CT cervical spine wo con DATE: 03/15/2025 16:07 INDICATION: Neck pain after fall TECHNIQUE: Computed tomography (CT) of the cervical spine was performed without intravenous contrast. The dose-length product was 307 mGy-cm. Automated exposure control and iterative reconstruction technique were employed. COMPARISON: None FINDINGS: Reversal of cervical lordosis. Craniovertebral junction is normal. Odontoid process within normal limits. There is advanced multilevel disc narrowing, endplate hypertrophy and uncinate degenerative change. There is carotid atherosclerosis. Lung apices are normal. No evidence for perched facet. Spinous processes are normal. IMPRESSION: 1. No acute abnormality of the cervical spine. Reviewed, dictated and finalized at location O. DANCER
--- OUTSIDE RECORDS SUMMARY | 2025-03-15 15:48 | XMS_ITS | Clinical Summary ---
Author Organization [facility] Address [address] 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
--- OUTSIDE RECORDS SUMMARY | 2025-03-15 15:48 | XMS_ITS | Clinical Summary ---
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 Gender Identity Not on file Sexual Orientation Not on file Plan of Treatment Health Maintenance Due Date Last Done Comments Colorectal Cancer Screening Colonoscopy (10 Years) 1951 Hepatitis C 1969 DTaP, Tdap and Td Vaccines ( 1 - Tdap) 1970 Mammogram Screening 1991 Pneumococcal Vaccine: 50+ Ye ars (1 of 1 - PCV) 2001 Zoster Vaccines (1 of 2) 2001 Dexa Scan (General) 2016 COVID-19 Vaccine ( - 2024-2 6 season) 2024 Influenza Adult (#1) 2024 RSV Immunization or 60+ Years (1 - 1-dose 75+ series) 2026 Hepatitis A Vaccines Aged Out No long er eligible based on patient's age to complete this topic Meningococcal B Vaccine Aged Out No l onger eligible based on patient's age to complete this topic Meningococcal Vaccine Aged Out No rod kaleigh eligible based on patient's age to complete this topic RSV Immunizations Under 20 Months Aged Out No longer eligible based on patient's age to complete this topic
--- OUTSIDE RECORDS SUMMARY | 2025-03-15 15:48 | XMS_ITS | Patient Health Record ---
Author Organization [facility] Address [address] [place] [address] Care Team Providers Care Ward Supervisor Name Role Phone Shaquille Norwood Unavailable [phone] Reason For Referral No Information Medications Medication SIG (Take, Route, Frequency, Duration) Notes Start Date End Date Status Alcohol Prep Pads PADS, MEDICATED (EA) TOPICAL (HAIR, NAILS AND SKIN) 09/18/2021 Active Escitalopram Oxalate 20 MG Tablet Oral 09/18/2021 Active Lantus SoloStar 100 UNIT/ML Solution Pen-injector Subcutaneous 09/18/2021 Active Escitalopram Oxalate 10 MG Tablet Oral 09/18/2021 Active Atorvastatin Calcium 40 MG Tablet Oral 09/18/2021 Active Lisinopril-hydroCHLO ROthiazide 20-12.5 MG Tablet Oral 09/18/2021 Active PURE COMFORT SAFETY LANCETS 30 GAUGE [facility] and Interaction Alerts* 09/18/2021 Active Gabapentin 300 MG Capsule Oral 09/18/2021 Active EASY COMFORT PEN NEEDLES 33 GAUGE X 5/32 *[facility] and Interaction Alerts* 09/18/2021 Active traZODone HCl 50 MG Tablet Oral 09/18/2021 Active HumaLOG KwikPen 100 UNIT/ML Solution Pen-injector Subcutaneous 09/18/2021 Active EASY COMFORT 30 gauge EACH MISCELLANEOUS *[facility] and Interaction Alerts* 09/18/2021 Active Clopidogrel Bisulfate 75 MG Tablet Oral 09/18/2021 Active ONETOUCH ULTRA CONTROL SOLN EACH MISCELLANEOUS *Reorder from [employer] for eRx and Interaction Alerts* 09/18/2021 Active OneTouch Ultra Strip In Vitro 09/18/2021 Active Combivent Respimat 20-100 MCG/ACT Aerosol Solution Inhalation 09/18/2021 Active busPIRone HCl 7.5 MG Tablet Oral 09/18/2021 Active Immunizations Vaccine Route Administration Date Status Comme nts Infuenza, trivalent, recombi nant, preservative free Unknown 12/19/2020 Administered Pfizer Biontech Covid-19 Vac cine 2nd dose Unknown 06/21/2020 Administered Pfizer Biontech Covid-19 Vac cine 2nd dose Unknown 07/13/2020 Administered Pfizer Biontech Covid-19 Vac cine 2nd dose Unknown 01/13/2021 Administered Social History Social History Additional Details Category Social Info Options Details Migrated Social History Migrated Social History Alcohol Intake: Occasional 09/18/2021,Tobacco Years: Former smoker 09/18/2021 Plan Of Treatment No Information Insurance Providers Payer Name Payer Address Payer Phone Subscriber Number Group Number Insured Name Patient Relationship to Insured Coverage Start Date Coverage End Date [facility] Medicare Replacement/ Advantage - Ppo [address] [address] [place] [address] [id number] [facility] Self - patient is the insured Medical (General) History Surgical History Surgery Date(Month/Year) Tonsilectomy/adenoids 09/02/1956 Heart surgery 09/16/2016 Cataract surgery (89328) 09/28/2019 Removal of gallbladder (66542) 4 Endometrial ablation (29522) 01/02/1999
--- NOTE | 2025-03-15 19:24 | ED_ITS ---
HPI - Head Injury General Chief complaint: Head Injury Stated complaint: fall-hit head Time Seen by Provider: 03/15/25 19:23 Source: patient Limitations: no limitations History of Present Illness HPI Narrative: Patient presents with report of falling and striking her head. She was in the bathroom and about to sit on the toilet when she got dizzy and missed striking her head. She reports that she has been getting dizzy quite frequently often after she sits down on the toilet but also usually when she stands as well and this has caused her to be nearly bedbound. she says she has also been experiencing chest pain which does not feel as intense as when she had a myocardial infarction approximately 9 years ago but also has her somewhat worried. She does have an event/Holter monitor that is being sent to her sitting home. She has had during this event her vision became black / dark briefly. She notes that she is on anticoagulation, medication review shows that it is clopidogrel. She does not follow regularly with a children's author. She did not lose consciousness but felt that she was about to. She does not know she has a history of heart failure but did have a triple bypass after [place]. She denies becoming short of breath. Her blood pressure medication she takes on Tuesdays, , and Tuesday because if she does not take it she becomes hypertensive but if she takes it daily she becomes hypotensive. PCP Valorie Perry. Cardiac risk factors HTN: Yes HLD: No DM: Yes, Type 2 on insulin Obese: Yes Smoker: No (former but quit 25 years ago) Personal history AZ/TIA/CVA: Yes Fam Hx AZ in first degree relative <65yo: No Related Data Home Medications ?Medication ?Instructions ?Recorded ?Confirmed ?Last Taken ?Type naproxen sodium 220 mg capsule 220 mg PO Q12H PRN pain (scale 12/21/23 03/16/25 Unknown History (Aleve) score 4-6) acetaminophen 500 mg tablet 1,000 mg PO QID PRN pain ( scale 03/16/25 03/16/25 Unknown History (Acetaminophen Extra Strength) score 4-6) buspirone 7.5 mg tablet 7.5 mg PO Q12H 03/16/25 12/10/1203/16/25 History diphenhydramine HCl 25 mg capsule 25 - 50 mg PO HS PRN allergy 03/16/25 03/16/25 Unknown History (Allergy (diphenhydramine)) symptoms Allergies Allergy/AdvReac Type Severity Reaction Status Date / Time aspirin Allergy Severe Vomiting, Verified 03/16/25 01:47 hives, SOB mold Allergy Severe Difficulty Verified 03/16/25 01:47 Breathing pollen extracts Allergy Severe Wheezing Verified 03/16/25 01:47 [facility] Past Medical History Medical History (Updated 03/16/25 @ 07:25 by IVONE Gutierrez) Chronic kidney disease Sleep apnea, unspecified Chest pain Low back pain radiating to left leg Cellulitis of face Myocardial infarct approx 2016 Insulin dependent type 2 diabetes mellitus insulin once daily + Ozempic on MARIYA (obstructive sleep apnea) Seasonal allergies Diverticulosis TIA (transient ischemic attack) Anxiety and depression Asthma CAD (coronary artery disease) Hypertension Surgical History Surgical History (Updated 03/16/25 @ 05:11 by Enid Parker APRN) Hx of tooth extraction History of endometrial ablation H/O carotid endarterectomy (~03/2012) On the right History of tonsillectomy History of dilatation and curettage x 5-6 History of cholecystectomy (~2002) Hx of CABG (~2016) 3 vessel Family History Family History (Updated 03/16/25 @ 02:09 by Susie Hampton RN) Sibling Hypertension Father , Unknown history No problems noted. Mother Family history of lung cancer COPD (chronic obstructive pulmonary disease) Other Breast cancer maternal aunt Grandparent Brain tumor maternal Social History Social History (Updated 03/16/25 @ 05:13 by Enid Parker APRN) Social History: Ms. Ashley lives at home with her son, Presley, whom she designates as her surrogate decision maker. She is and Presley is her only child. She would like to be a full code. Her PCP is Valorie Perry (previously Dr Polanco). She is independent in her ADLs. She does not use alcohol or drugs. She stated that she is a former smoker however her son smokes cigars in their apartment. She retired from [employer]. Code status: Full code Smoking packs per day: 1 Smoking cigarettes per day: 20.0 Years smoked: 25 Smoking pack-years: 25.00 Smoking status: Former smoker Tobacco type: cigarettes Second hand tobacco smoke exposure: Yes Smoking end date: 03/21/98 Alcohol intake: never Alcohol use details: occasional Substance use: never Substance use type: does not use Lack of Transportation: No Lack of Food: Sometimes True Current Housing: I Have Housing Concerned About Future Housing: No Difficulty Paying Gas/Electric Bills: YES Difficulty Paying for Meds: YES Currently Unemployed: No Education: High School Diploma/GED Difficulty w/ Childcare or Family Care: No Living arrangements: with family Occupation/Education: retired Additional occupation/education comments: [employer] Gender identity (if verbalized by the patient): Female Sexual Orientation (if Verbalized by the Patient): Straight or Heterosexual Spiritual care concerns: Yes (faith) Agree to blood products: Yes Exam 2 Narrative: GENERAL: Well-appearing, well-nourished, and in no acute distress. HEAD: Hematoma right scalp, skin intact without laceration. EYES: Non injected, non icteric ENT: Nares clear, no rhinorrhea or epistaxis. Gross auditory acuity intact. Dry mucous membranes. NECK: Supple. No meningismus. CHEST: Speaking in full sentences. No respiratory distress. HEART: Irregularly IRRegular rate and rhythm. ABDOMEN: Obese but Soft, nondistended. No rigidity or guarding. Not peritoneal EXTREMITIES: Normal range of motion. SKIN: Warm, dry, no rash. NEURO: No focal deficits. Alert and oriented. Answering questions. Following commands. Normal speech without aphasia or dysarthria. PSYCH: Normal mood and affect. Course Vital Signs Vital signs: Vital Signs Temperature 98.3 F 03/15/25 16:06 Pulse Rate 95 03/15/25 16:06 Respiratory Rate 16 03/15/25 16:06 Blood Pressure 100/56 L 03/15/25 16:06 Pulse Oximetry 95 03/15/25 16:06 Temperature 98.4 F 03/16/25 16:00 Pulse Rate 102 H 03/16/25 16:00 Respiratory Rate 18 03/16/25 16:00 Blood Pressure 125/48 L 03/16/25 16:00 Pulse Oximetry 96 03/16/25 16:00 Oxygen Delivery Room Air 03/16/25 12:00 Fraction of Inspired Oxygen 21 03/16/25 02:48 [facility] MDM Narrative Medical decision making narrative: Patient presents after a fall in which she struck her head. Imaging negative but she does disclose a concern of near syncope as well as dizziness and also chest pain. In the emergency department she is afebrile vital signs notable for hypotension. Mean arterial pressure is 70mmHg. 500cc IV fluids ordered for this as well as patient with dry mucous membranes concerning for dehydration, possible orthostatic component. Warren Syncope Rule: Congestive heart failure history: No and BNP only mildly elevated, not to a degree to suggest acute heart failure especially given the reference range of the assay for patient's age today Hematocrit <30%: 0 EKG abnormal (changed or any non-sinus rhythm): Yes, changed. New onset but rate controlled atrial fibrillation. TSH ordered. SOB symptoms: 0 SBP <90mmHg at triage: 0 HEART SCORE History 2 highly suspicious 1 moderately suspicious 0 slightly suspicious History score [address] depression/elevation not due to LBBB, LVH, or digoxin [address] depression but LBBB, LVH, nonspecific repolarization changes 0 normal ECG score 0 Age 2 >/= 65 1 45-64 0 <45 Age score 2 Risk factors (HTN, hypercholesterolemia, DM, obesity with BMI >30, current smoker or cessation </=3mo), positive fam hx with parent or sibling with CVD before age 65, atherosclerotic disease (prior [place], PCI/CABG, CVA/TIA, or peripheral arterial disease) 2 >/= 3 risk factors or history of atherosclerotic dz 1 - 1-2 risk factors 0 no known risk factors Risk factor score 2 Initial Troponin 2 >3 times normal limit 1 1-3 times normal limit 0 less than or equal to normal limit Troponin score 0 Total HEART Score 4 CBC with mild abnormalities on the differential in terms of monocytes however otherwise without leukocytosis, anemia, thrombocytopenia. Cr has ranged from 0.8 - 1.29; I suspect today represents TREV but possibly TREV superimposed on mild CKD. UA is abnormal with bacteria and other markers of infection although with moderate squamous cells. Patient states she earlier in the week thought she had been experiencing a urinary tract infection due to some dysuria. This symptom improved however, given she was symptomatic, reasonable to treat. Urine culture ordered. Previous 2 urine cultures are reviewed which showed only mixed genital olu. No cultures to guide therapy. Will give a dose of ceftriaxone. Will given aspirin for cardiac protection given the chest pain and will obtain 3 hour troponin. Notably, patient has become more hypotensive. Additional 500cc IV fluids ordered. TSH normal. Patient becomes profoundly hypotensive during orthostatic VS attempt. Will give another 500cc IV fluids. BP has improved, 124/68. Repeat troponin within normal limits. Patient would benefit from admission for further management /monitoring and clear discharge instructions regarding her new onset Afib (CHADSVASC to be determined), chest pain work up in the setting of HEART score, recurrent near syncope/dizzy spells. Patient amenable. Discussed with assistant store manager operations hospitalist RAF who accepts admission. Differential Diagnosis Differential Diagnosis: Intracranial hemorrhage, fracture, Differential diagnostic considerations for syncope/near syncope include arrhythmia,?valvular heart disease, ACS, vasovagal or orthostatic syncope, COIN ROLLING MACHINE OPERATOR lesion such as CVA, TIA, seizure, complete atrioventricular block, vertebrobasilar insufficiency. Medical Records I have reviewed the following patient records and this information was taken into consideration when formulating the assessment and plan.: previous labs Lab Data MDM Lab Attestation statement: I personally reviewed the patient's lab results. 03/16/25 04:12 03/16/25 04:12 Labs: Lab Results 03/15/25 03/15/25 03/15/25 Range/Units 19:44 19:45 19:55 WBC 8.7 (4.5-10.0) K/mm3 RBC 4.46 (4.2-5.4) M/mm3 Hgb 13.2 (12.0-15.0) g/dL Hct 40.2 (37.0-47.0) % MCV 90.1 (80-100) fl MCH 29.6 (26-34) pg MCHC 32.8 (32-36) g/dl RDW 13.2 (11.5-14.5) % Plt Count 280 (150-375) k/mm3 MPV 9.1 (7.4-10.4) fl Immature Gran % (Auto) 0.3 (0-0.5) % Neut % (Auto) 70.0 (45.5-73.1) % Lymph % (Auto) 19.4 (18.3-44.2) % [place] % (Auto) 8.2 (2.6-8.5) % Eos % (Auto) 1.6 (0-4.4) % Baso % (Auto) 0.5 (0.2-1.2) % Lymph # (Auto) 1.69 (0.9-3.2) K/mm3 [place] # (Auto) 0.7 H (0.1-0.6) K/mm3 Eos # (Auto) 0.1 (0-0.3) K/mm3 Baso # (Auto) 0.0 (0.0-0.1) K/mm3 Abs Immat Gran (auto) 0.03 (0.00-0.031) K/mm3 Absolute Neuts (auto) 6.1 (1.3-6.7) K/mm3 Absolute Nucleated RBC 0.000 (0.0-0.012) K/mm3 Nucleated RBC % 0.0 (0.0-0.2) % PT 15.0 H (11.1-14.7) Seconds INR 1.2 APTT 27.5 (22.3-36.8) Seconds Sodium 143 (137-145) mmol/L Potassium 3.8 (3.4-5.0) mmol/L Chloride 104 (98-107) mmol/L Carbon Dioxide 28 (22-30) mmol/L Anion Gap 11 (4-12) mmol/L BUN 18 H (7-17) mg/dL Creatinine 1.39 H (0.7-1.0) mg/dL Estim Creat Clear Calc Not Reportable Estimated GFR 37 L (59 - ) Glucose 89 (65-110) mg/dL Calcium 9.8 (8.4-10.2) mg/dL Total Bilirubin 0.7 (0.2-1.3) mg/dL AST 28 (14-36) U/L ALT 21 (6-35) U/L Alkaline Phosphatase 72 (38-126) U/L Troponin I < 0.012 (0.000-0.034) ng/mL NT-Pro-B Natriuret Pep 472 H (19.9-100) pg/mL Total Protein 7.6 (6.3-8.2) g/dL Albumin 4.1 (3.5-5.1) g/dL Lipase 58 (23-300) U/L TSH 0.658 (0.465-4.680) uIU/mL Urine Color Dark yellow (Yellow) Urine Appearance Turbid H (Clear) Urine pH 5.0 (5.0-9.0) Ur Specific [place] 1.032 (1.001-1.035) Urine Protein 1+ H (Negative) mg/dL Urine Glucose (UA) Negative (Negative) mg/dL Urine Ketones 1+ H (Negative) mg/dL Ur Blood (Man) Negative (Negative) Urine Nitrate Negative (Negative) Urine Bilirubin 1+ H (Negative) Urine Urobilinogen 1.0 (<2.0) mg/dL Add Ur Microanalysis Reviewed Leukocyte Esterase Rfl 2+ H (Negative) MICKEY/UL Urine RBC 11-20 H (0-2) /hpf Urine WBC 11-20 H (0-3) /hpf Ur Squamous Epith Cells Moderate (Few) /hpf Calcium Oxalate Crystal Present (None) /hpf Urine Bacteria 4+ H /hpf Urine Casts >20 Hyaline Casts Present (None) /lpf Urine Mucus Present /lpf 03/15/25 Range/Units 22:28 WBC (4.5-10.0) K/mm3 RBC (4.2-5.4) M/mm3 Hgb (12.0-15.0) g/dL Hct (37.0-47.0) % MCV (80-100) fl MCH (26-34) pg MCHC (32-36) g/dl RDW (11.5-14.5) % Plt Count (150-375) k/mm3 MPV (7.4-10.4) fl Immature Gran % (Auto) (0-0.5) % Neut % (Auto) (45.5-73.1) % Lymph % (Auto) (18.3-44.2) % [place] % (Auto) (2.6-8.5) % Eos % (Auto) (0-4.4) % Baso % (Auto) (0.2-1.2) % Lymph # (Auto) (0.9-3.2) K/mm3 [place] # (Auto) (0.1-0.6) K/mm3 Eos # (Auto) (0-0.3) K/mm3 Baso # (Auto) (0.0-0.1) K/mm3 Abs Immat Gran (auto) (0.00-0.031) K/mm3 Absolute Neuts (auto) (1.3-6.7) K/mm3 Absolute Nucleated RBC (0.0-0.012) K/mm3 Nucleated RBC % (0.0-0.2) % PT (11.1-14.7) Seconds INR APTT (22.3-36.8) Seconds Sodium (137-145) mmol/L Potassium (3.4-5.0) mmol/L Chloride (98-107) mmol/L Carbon Dioxide (22-30) mmol/L Anion Gap (4-12) mmol/L BUN (7-17) mg/dL Creatinine (0.7-1.0) mg/dL Estim Creat Clear Calc Estimated GFR (59 - ) Glucose (65-110) mg/dL Calcium (8.4-10.2) mg/dL Total Bilirubin (0.2-1.3) mg/dL AST (14-36) U/L ALT (6-35) U/L Alkaline Phosphatase (38-126) U/L Troponin I < 0.012 (0.000-0.034) ng/mL NT-Pro-B Natriuret Pep (19.9-100) pg/mL Total Protein (6.3-8.2) g/dL Albumin (3.5-5.1) g/dL Lipase (23-300) U/L TSH (0.465-4.680) uIU/mL Urine Color (Yellow) Urine Appearance (Clear) Urine pH (5.0-9.0) Ur Specific [place] (1.001-1.035) Urine Protein (Negative) mg/dL Urine Glucose (UA) (Negative) mg/dL Urine Ketones (Negative) mg/dL Ur Blood (Man) (Negative) Urine Nitrate (Negative) Urine Bilirubin (Negative) Urine Urobilinogen (<2.0) mg/dL Add Ur Microanalysis Leukocyte Esterase Rfl (Negative) MICKEY/UL Urine RBC (0-2) /hpf Urine WBC (0-3) /hpf Ur Squamous Epith Cells (Few) /hpf Calcium Oxalate Crystal (None) /hpf Urine Bacteria /hpf Urine Casts Hyaline Casts (None) /lpf Urine Mucus /lpf Imaging Data Radiologist's impression: ITS Impressions Head CT 03/15/25 16:10 IMPRESSION: 1. No acute intracranial abnormality. Cervical Spine CT 03/15/25 16:14 IMPRESSION: 1. No acute abnormality of the cervical spine. Chest X-Ray 03/15/25 19:54 Impression: 1: No acute cardiopulmonary disease. ECG Data EKG #1: Attestation: I personally reviewed and interpreted this ECG as follows: ECG completion date: 03/15/25 ECG completion time: 19:45 Prior ECG tracings: available for review (EKG 12/25/20 showed sinus rhythm with R axis deviation and RBBB (QRS >120ms)) Interpretation: Atrial fibrillation a rate of 93 beats per minute. QRS 129. QT/ QTC 391/48. Right bundle branch block. EKG #2: Attestation: I personally reviewed and interpreted this ECG as follows: ECG completion date: 03/15/25 ECG completion time: 22:31 Interpretation: Atrial fibrillation at a rate of 74 beats per minute. There are apparent complexes/PVCs. QRS 142. QT/QTC 476/529. Intraventricular conduction delay versus a right bundle-branch block. Discharge Plan Discharge Clinical Impression: Traumatic hematoma of scalp, Near syncope, Atrial fibrillation, new onset, Chest pain, Right bundle branch block, TREV (acute kidney injury), Abnormal urinalysis, Orthostatic hypotension Fall Qualifiers: Encounter type: initial encounter Qualified Code(s): W19.XXXA - Unspecified fall, initial encounter Patient Disposition: Still a Patient Condition: Stable
--- NOTE | 2025-03-15 19:31 | ECG_ITS ---
Test Date: 2025-03-15 19:45:53 Measurements Intervals [place] Rate: 93 P: 0 CO: 0 QRS: 85 QRSD: 129 T: 1 QT: 391 QTc: 488 Interpretive Statements ATRIAL FLUTTER/TACHYCARDIA RIGHT BUNDLE BRANCH BLOCK BASELINE ARTIFACT- I, III, AVR, AVL, AVF, V1-V6 ABNORMAL ECG No previous ECG available for comparison Electronically Signed On 03-15-2025 19:55:51 TORCH STRAIGHTENER AND HEATER by Kalpesh Weems D.O.
[2025-03-15] MEDS: SODIUM CHLORIDE 0.9% IV 500 ML 999 ML IV CONT ×3 (20:07→21:07)
[2025-03-15] MEDS: ACETAMINOPHEN 500 MG TABLET 1000 MG PO (20:07)
[2025-03-15 20:08] LABS: Hematocrit 40.2 % (37.0-47.0); Hemoglobin 13.2 g/dL (12.0-15.0); Immature Granulocyte Percent A 0.3 % (0-0.5); Lymphocytes Absolute Auto 1.69 K/mm3 (0.9-3.2); Mean Corpuscular HGB Conc 32.8 g/dl (32-36); Mean Corpuscular Hemoglobin 29.6 pg (26-34); Mean Corpuscular Volume 90.1 fl (80-100); Nucleated Red Blood Cells Absolute Auto 0.000 K/mm3 (0.0-0.012); Nucleated Red Blood Cells Perc 0.0 % (0.0-0.2); Platelet Count Result 280 k/mm3 (150-375); Red Blood Count 4.46 M/mm3 (4.2-5.4); White Blood Count 8.7 K/mm3 (4.5-10.0)
--- OUTSIDE RECORDS SUMMARY | 2025-03-15 20:14 | XMS_ITS | Clinical Summary ---
Author Organization [facility] Address [address] 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
--- OUTSIDE RECORDS SUMMARY | 2025-03-15 20:14 | XMS_ITS | Clinical Summary ---
Author Organization [facility] Address [address] [place] [id number] Care Team Providers Care Engineering Patternmaker Name Role Phone Unavailable Primary Care Provider Unavailabl e Social History Tobacco Use Types Packs/Day Years Used Date Smoking Tobacco: Never Assessed Comments Unknown Sex and Gender Information Value Date Recorded Sex Assigned at Not on file Legal Sex Female 10:23 PM PUMP RUNNER Gender Identity Not on file Sexual Orientation [...]
--- OUTSIDE RECORDS SUMMARY | 2025-03-15 20:14 | XMS_ITS | Clinical Summary ---
Author Organization [facility] Address [id number] [place] [id number] Care Team Providers Care Dispatcher Bus And Trolley Name Role Phone Alfredo Cook MD Primary Care Provider [phone] Allergies Active Allergy Reactions Criticality Noted Date Comments Aspirin Vomiting Low 10/19/2016 Medications atorvastatin (LIPITOR) 20 mg tablet Take 40 mg by mouth daily. Active clopidogrel (PLAVIX) 75 mg tablet Take 75 mg by mouth daily. Active escitalopram (LEXAPRO) 10 mg tablet Take 10 mg by mouth daily. Active furosemide (LASIX) 40 mg tablet Take 20 mg by mouth daily. Active insulin glargine (LANTUS) 100 unit/mL (3 mL) insulin pen Active insulin lispro (HumaLOG) 100 unit/mL cartridge Ac tive traMADol (ULTRAM) 50 mg tablet Take 50 mg by mouth every 6 (six) hours as needed for pain. Active amLODIPine (NORVASC) 2.5 mg tablet Take 2.5 mg by mouth daily. Active betamethasone, augmented, (DIPROLENE) 0.05 % lotion Apply topically 2 (two) times a day. Active ipratropium-albute rol (COMBIVENT RESPIMAT) 20-100 mcg/actuation inhalerIndications :Chronic Obstructive Pulmonary Disease with Bronchospasms Inhale 1 puff 4 (four) times a day. Active sitaGLIPtin-metfor min (JANUMET) 50-500 mg per tablet Take 1 tablet by mouth 2 (two) times a day with meals. Active lisinopril (PRINIVIL,ZESTRIL) 20 mg tablet Take 20 mg by mouth 2 (two) times a day. Active triamcinolone (KENALOG) 0.1 % cream Apply topically 2 (two) times a day. Active cholecalciferol (VITAMIN D-3) 50,000 unit capsule Take 50,000 Units by mouth every 30 (thirty) days. Active gabapentin (NEURONTIN) 300 mg capsule Active Active Problems Problem Noted Date Diagnosed Date CAD (coronary artery disease) 10/19/2016 S/P CABG (coronary artery bypass graft) 10/20/19 17 Chronic coronary artery disease 10/12/2016 Dehiscence of operative wound 10/12/2016 Surgical History Surgery Date Site/Laterality Comments CORONARY ARTERY BYPASS GRAFT Medical History Medical History Date Comments Coronary artery disease Family History Medical History Relation Name Comments COPD Mother Cancer Mother Relation Name Status Comments Brother Alive Mother Sister Alive Social History Tobacco Use Types Packs/Day Years Used Date Smoking Tobacco: Former Smokeless Tobacco: Never Personal Safety Answer Date Recorded Getting School Help Needed Not on file 05/20 Comments Unknown Sex and Gender Information Value Date Recorded Sex Assigned at Not on file Legal Sex Female 3:04 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 MESSAGE 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 Gender Identity Not on file Sexual Orientation Not on file Last Filed Vital Signs Vital Sign Reading Time Taken Comments Blood Pressure 104/60 03/26/2021 1:41 PM RADIO MESSAGE ROUTER Pulse 76 03/26/2021 1:41 PM RADIO MESSAGE ROUTER Temperature - - Respiratory Rate 16 12/21/2016 10:27 AM CDT Oxygen Saturation 96% 03/26/2021 1:41 PM RADIO MESSAGE ROUTER Inhaled Oxygen Concentration - - Weight 115.7 kg (255 lb) 03/26/2021 1:41 PM RADIO MESSAGE ROUTER Height 165.1 cm (5' 5) 03/26/2021 1:41 PM RADIO MESSAGE ROUTER Body Mass Index 42.43 03/26/2021 1:41 PM RADIO MESSAGE ROUTER Plan of Treatment Not on file Insurance [facility] MEDICARE ADVANTAGE Care Teams Dispatcher Bus And Trolley Relationship Specialty Start Date End Date Alfredo Cook MD PCP - General 09/17/16
[2025-03-15 20:16] LABS: Alanine Aminotransferase 21 U/L (6-35); Albumin Level 4.1 g/dL (3.5-5.1); Alkaline Phosphatase 72 U/L (38-126); Anion Gap 11 mmol/L (4-12); Aspartate Amino Transferase 28 U/L (14-36); Bilirubin,Total 0.7 mg/dL (0.2-1.3); Blood Urea Nitrogen 18 mg/dL (7-17); Calcium 9.8 mg/dL (8.4-10.2); Carbon Dioxide 28 mmol/L (22-30); Chloride 104 mmol/L (98-107); Estimated Glomerular Filt Rate 37; Glucose 89 mg/dL (65-110); Lipase 58 U/L (23-300); Potassium 3.8 mmol/L (3.4-5.0); Sodium 143 mmol/L (137-145); Total Protein 7.6 g/dL (6.3-8.2)
[2025-03-15 20:17] LABS: INR 1.2; Prothrombin Time 15.0 Seconds (11.1-14.7)
[2025-03-15 20:18] LABS: Partial Thromboplastin Time 27.5 Seconds (22.3-36.8)
[2025-03-15 20:21] LABS: Add Urine Microscopic? YES; Appearance Urine Turbid (Clear); Glucose Urine UA Negative (Negative); Leukocyte Esterase Ur 2+ LEU/UL (Negative); Need Manual Microscopic Reviewed; Nitrate Urine Negative (Negative); Non Pathogenic Casts >20; Specific Grav Ur 1.032 (1.001-1.035)
[2025-03-15 20:28] LABS: NT Pro B Type Natriuretic Pept 472 pg/mL (19.9-100); Troponin I < 0.012 ng/mL (0.000-0.034)
[2025-03-15 20:49] LABS: Thyroid Stimulating Hormone 0.658 uIU/mL (0.465-4.680)
--- NOTE | 2025-03-15 22:27 | ECG_ITS ---
Test Date: 2025-03-15 22:31:20 Measurements Intervals [place] Rate: 74 P: 0 RI: 0 QRS: 81 QRSD: 142 T: 25 QT: 476 QTc: 529 Interpretive Statements SINUS RHYTHM WITH ATRIAL AND VENTRICULAR PREMATURE COMPLEXES RIGHT BUNDLE BRANCH BLOCK BASELINE ARTIFACT- I, II, III, AVR, AVL, AVF, V1-V6 ABNORMAL ECG Compared to ECG 03/15/2025 19:45:53 ATRIAL FLUTTER NO LONGER PRESENT Ventricular premature complex(es) now present Electronically Signed On 03-16-2025 09:07:32 CORE SUCKER by Kalpesh Weems D.O.
[2025-03-15 23:36] LABS: Troponin I < 0.012 ng/mL (0.000-0.034)
[2025-03-16] VITALS (22 sets, daily range): BP systolic 79–134; BP diastolic 23–75; PULSE 55–102; RESP 16–20; TEMP 36.4–36.9; O2SAT 94–99; BMI 34.5
--- NOTE | 2025-03-16 | ECHO_ITS ---
Patient Info Name: Rosana Ashley Age: 74 years : 1950 Gender: Female Ht: 64 in Wt: 201 lbs BSA: 2.07 m2 HR: 70 bpm BP: 124 / 51 mmHg Heart Rhythm: Indeterminant Technical Quality: Fair Exam Date: 03/16/2025 9:43 AM Patient Status: O Admit Date: 03/16/2025 Exam Type: CA echo dop color flow w con Complete two-dimensional, color flow and Doppler transthoracic echocardiogram is performed with contrast to opacify the left ventricle and to improve the deliniation of the left ventricle endocardial borders. Staff Referring Physician: Nury Bergeron Stereotyper Helper: Natacha Damon Attending Provider: Kishore Leija Contrast/Agitated Saline Contrast/Ag. Saline: Definity Amount: 2.00 ml Administered By: Natacha Damon Existing IV Access: Yes IV Access Condition: patent with no signs of infiltration Summary 1. Concentric left ventricular hypertrophy with vigorous systolic function. 2. Left atrial enlargement. 3. Aortic valve stenosis mild to moderate by Doppler valve appears to be severely stenotic by 2D imaging. 4. Heavily calcified mitral valve annulus. 5. Definity contrast used to improve visualization. Left Ventricle Left ventricular chamber dimension is normal. Left ventricular systolic function is hyperdynamic, estimated at >70. There is moderate concentric increased left ventricular wall thickness. The left ventricular diastolic function is indeterminate. Right Ventricle Right ventricular chamber dimension is normal. Left Atria Left atrial chamber dimension is mildly enlarged. Right Atria Right atrial chamber dimension is normal. Aortic Valve The aortic valve is trileaflet. There is moderate aortic valve sclerosis. There is mild to moderate aortic valve stenosis with a peak velocity of 198 cm/s, mean gradient of 9 mmHg, and aortic valve area of 1.4 cm2. Pulmonic Valve The pulmonic valve is not well visualized. Mitral Valve The mitral valve has normal leaflets. The mitral valve annulus is severely calcified. Tricuspid Valve The tricuspid valve leaflets are normal. Pericardium/Pleural The pericardium appears normal. Aorta The aortic root size at the sinus of Valsalva is normal. Left Ventricular Outflow Tract Name Value Normal LVOT 2D LVOT Diameter 2.0 cm LVOT Doppler LVOT Peak Velocity 90 cm/s LVOT Peak Gradient 3 mmHg LVOT Mean Gradient 2 mmHg LVOT VTI 17 cm LVOT VTI/AV VTI Ratio 0.4 LVOT Stroke Volume 56 ml LVOT CO 3.8 l/min LVOT CI 1.8 l/min/m2 Pulmonic Valve Name Value Normal RVOT Doppler RVOT Peak Velocity 103 cm/s RVOT Peak Gradient 4 mmHg PV Doppler PV Peak Velocity 121 cm/s PV Peak Gradient 6 mmHg Mitral Valve Name Value Normal MV Diastolic Function MV E Peak Velocity 106 cm/s MV A Peak Velocity 88 cm/s MV E/A 1.2 MV Decel Time (PW) 285 ms MV Annular TDI MV E/e' (Septal) 20.2 MV E/e' (Lateral) 8.6 MV E/e' (Average) 14.4 Tricuspid Valve Name Value Normal TV Regurgitation Doppler TR Peak Velocity 200 cm/s TR Peak Gradient 16 mmHg Estimated PAP/RSVP RA Pressure 10 mmHg <=5 PA Systolic Pressure 26 mmHg <36 RV Systolic Pressure 26 mmHg <36 Aorta Name Value Normal Ascending Aorta Ao Root Diameter (MM) 3.0 cm Ao Root Diam Index (MM) 1.5 cm/m2 Aortic Valve Name Value Normal AV Doppler AV Peak Velocity 198 cm/s AV Peak Gradient 16 mmHg AV Mean Gradient 9 mmHg AV VTI 39 cm AV Area (Cont Eq VTI) 1.4 cm2 >=3.0 AV Area (Cont Eq Mac) 1.5 cm2 AV DI (Mac) 0.46 AV Regurgitation 2D LVOT Area 3.3 cm2 Ventricles Name Value Normal LV Dimensions 2D/MM IVS Diastolic Thickness (2D) 1.1 cm 0.6-1.0 LVID Diastole (2D) 3.0 cm 3.8-5.2 LVIW Diastolic Thickness (2D) 1.1 cm 0.6-0.9 LVID Systole (2D) 2.0 cm 2.2-3.5 LVOT Diameter 2.0 cm LV Mass (2D Cubed) 90.86 g 67.00-162.00 LV Mass Index (2D Cubed) 44 g/m2 43-95 Relative Wall Thickness (2D) 0.71 <=0.42 LV Fractional Shortening/Ejection Fraction 2D/MM LV Fractional Shortening (2D) 32 % 27-45 LV EF (2D Teichholz) 61 % LV Diastolic Volume (4C MOD) 41 ml LV EF (4C MOD) 79 % LV Diastolic Volume (2C MOD) 50 ml LV EF (2C MOD) 77 % LV Diastolic Volume (BP MOD) 46 ml 46-106 LV Diastolic Volume Index (BP MOD) 22 ml/m2 29-61 LV Systolic Volume (BP MOD) 10 ml 14-42 LV Systolic Volume Index (BP MOD) 5 ml/m2 8-24 LV EF (BP MOD) 78 % 54-74 LV Diastolic Length (4C) 6.3 cm LV Systolic Length (4C) 4.7 cm LV Stroke Volume (4C MOD) 33 ml Atria Name Value Normal LA Dimensions LA Dimension (MM) 4.7 cm 2.7-3.8 LA Volume (4C A-L) 70 ml LA Volume (BP A-L) 73 ml RA Dimensions RA Area (4C) 14.3 cm2 <=18.0 Report Signatures
--- NOTE | 2025-03-16 00:44 | WPCEDHO ---
ED Hand Off Checklist All vitals saved: y IV Site documented: y All med administrations documented: y Triage Note Triage Note pt to ED c/o falling off toilet 03/15/25 15:47 seat and striking her head. pt reports hematoma and that she takes blood thinners Allergies aspirin Allergy (Severe, Verified 02/25/25 09:27) Vomiting, hives, SOB mold Allergy (Severe, Verified 02/25/25 09:27) Difficulty Breathing Pt states that it gives her a severe asthma attack. pollen extracts Allergy (Severe, Verified 02/25/25 09:27) Wheezing Family History (Last Reviewed 03/15/25 @ 19:41 by Nury Bergeron MD) Sibling Hypertension Father No problems noted. Mother Family history of lung cancer COPD (chronic obstructive pulmonary disease) Administered/Completed Medications Discontinued Medications Acetaminophen (Acetaminophen 500 Mg Tablet) 1,000 mg PO ONCE STA Stop: 03/15/25 19:32 Last Admin: 03/15/25 20:07 Dose: 1,000 mg Documented By: MARIANGEL Sodium Chloride (Normal Saline Iv) 500 mls @ 999 mls/hr IV CONT .Q31M STA Stop: 03/15/25 20:02 Last Infusion: 03/15/25 20:40 Dose: Infused Documented By: Admin: 03/15/25 20:07 Dose: 999 mls/hr Documented By: MARIANGEL Sodium Chloride (Normal Saline Iv) 500 mls @ 999 mls/hr IV CONT .Q31M STA Stop: 03/15/25 21:12 Last Infusion: 03/15/25 21:33 Dose: Infused Documented By: Admin: 03/15/25 21:01 Dose: 999 mls/hr Documented By: MARIANGEL Sodium Chloride (Normal Saline Iv) 500 mls @ 999 mls/hr IV CONT .Q31M STA Stop: 03/15/25 21:33 Last Infusion: 03/15/25 22:05 Dose: Infused Documented By: Admin: 03/15/25 21:07 Dose: 999 mls/hr Documented By: MARIANGEL Interventions/Assessments IV / Saline Lock, Insert Start: 03/15/25 19:32 Freq: STAT Status: Active Protocol: Document 03/15/25 19:57 MARIANGEL (Rec: 03/15/25 19:58 MARIANGEL [id number]) IV Assessment Peripheral Access Left Forearm IV Catheter Access Initiated IV Insertion Date 03/15/25 IV Insertion Time 19:58 Catheter Gauge 20 IV Insertion 1 Attempts Ultrasound Used for No Placement IV Site Assessment WNL IV Care and WNL Maintenance Last Vital Signs Temperature 98.3 F 03/15/25 16:06 Pulse Rate 80 03/16/25 00:15 Respiratory Rate 18 03/16/25 00:15 Pulse Oximetry 98 03/15/25 23:31 Blood Pressure 124/50 L 03/16/25 00:01 Blood Pressure Mean 71 03/16/25 00:01 Blood Pressure Position Sitting 03/15/25 21:32 Last Result - Abnormals Only [place] # (Auto) 0.7 K/mm3 (0.1-0.6) H 03/15/25 19:45 PT 15.0 Seconds (11.1-14.7) H 03/15/25 19:44 BUN 18 mg/dL (7-17) H 03/15/25 19:45 Creatinine 1.39 mg/dL (0.7-1.0) H 03/15/25 19:45 Estimated GFR 37 (59-) L 03/15/25 19:45 NT-Pro-B Natriuret Pep 472 pg/mL (19.9-100) H 03/15/25 19:45 Urine Appearance Turbid (Clear) H 03/15/25 19:45 Urine Protein 1+ mg/dL (Negative) H 03/15/25 19:45 Urine Ketones 1+ mg/dL (Negative) H 03/15/25 19:45 Urine Bilirubin 1+ (Negative) H 03/15/25 19:45 Leukocyte Esterase Rfl 2+ MICKEY/UL (Negative) H 03/15/25 19:45 Urine RBC 11-20 /hpf (0-2) H 03/15/25 19:45 Urine WBC 11-20 /hpf (0-3) H 03/15/25 19:45 Urine Bacteria 4+ /hpf H 03/15/25 19:45 Most Recent Suicide Severity Rating Suicide Severity Rating NO RISK INDICATED 03/15/25 15:47
--- NOTE | 2025-03-16 01:17 | PC.NURSE ---
This patient, Rosana Ashley, was admitted to IMU Room 206-02. Patient/family oriented to hospital policies and general routines including ID bracelet, bed and alarms, visiting hours, pain management, procedures, bathroom and other care routines, personal items, smoking policy, room service/diet, and visiting hours. Information on how to activate the Rapid Response Team has been discussed. Patient/Family are encouraged to report perceived risks to care and to ask questions if they do not understand what they are told or what they should do.
--- NOTE | 2025-03-16 04:54 | PM.IMHP2 ---
H&P: HPI History of Present Illness Date/Time: 03/16/25 04:54 Chief Complaint: Head injury Narrative: This is a 74-year-old female patient who resides with it her son. She has a history of diabetes type 2 with insulin use, carotid artery disease, hypertension, depression and anxiety. The patient stated that she has been feeling dizzy on and off for several months. She stated that she felt dizzy quite frequently, especially when as sitting to standing. However prior to coming to the emergency room the patient was going to use the restroom, when she went to sit on the toilet she felt dizzy causing her to fall and hit the right side of her head. 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 She has had a history of having a 3 vessel CABG in the past. She denies having any history of CHF or irregular heartbeat. The EKG was read as atrial flutter-tachycardia. However his heart rate is in the 90s . However her heart rate appears to be regular on the EKG with PVCs and PACs versus pjc. Repeat EKG was read as AFib however there is a lot of artifact on the EKG. The rate appears to be regular. Initially her blood sugar was 68. Troponin negative x2. BNP was only 472. Urine was noted to be turbid, urine protein 1+, urine ketones 1+, urine bilirubin 1+, leukocyte esterase 2+, urine RBC 11-20, urine wbc's 11-20 with urine bacteria 4+. The patient was given 3 L of normal saline. Low as blood pressure was 55/43 and is now 124/51. The patient stated that her blood pressures have been low at home and her blood sugars have been low at home as well. The patient also has obstructive sleep apnea but stated that her CPAP machine has broke several months ago. Head CT was read as no acute intracranial abnormality per radiologist. Cervical spine CT was read as no acute abnormality of the cervical spine. Chest x-ray was read as no acute cardiopulmonary disease. The patient is being admitted to observation status on the date of service of 03/16/2025. Review of Systems Constitutional: Constitutional: Reports as per HPI and Reports no additional constitutional complaints Eyes: Eyes: Reports as per HPI and Reports no additional eye complaints ENT: Reports system reviewed and no additional complaints, except as documented and Reports Normal hearing present Cardiovascular: Cardiovascular: Reports no additional cardiovascular complaints Respiratory: Respiratory: Reports as per HPI and Reports no additional respiratory complaints Gastrointestinal: Gastrointestinal: Reports as per HPI and Reports no additional gastrointestinal complaints Genitourinary: Genitourinary: Reports no additional female genitourinary complaints Musculoskeletal: Musculoskeletal: Reports no additional musculoskeletal complaints Integumentary/Breasts: Skin/Breast: Reports system reviewed and no additional complaints, except as docu Neurologic: Reports system reviewed and no additional complaints, except as documented and Reports Normal hearing present Psychiatric: Psychiatric: Reports no additional psychiatric complaints and Reports as per HPI Hematologic/Lymphatic: Hematologic/Lymphatic: Reports no additional hematologic/lymphatic complaints Allergic/Immunologic: Allergic/Immunologic: Reports no additional allergic/immunologic complaints [facility] Past Medical History Medical History (Updated 03/16/25 @ 05:35 by Enid Parker APRN) Chronic kidney disease Sleep apnea, unspecified Chest pain Low back pain radiating to left leg Cellulitis of face Myocardial infarct approx 2016 Insulin dependent type 2 diabetes mellitus insulin once daily + Ozempic on MARIYA (obstructive sleep apnea) Seasonal allergies Diverticulosis TIA (transient ischemic attack) Anxiety and depression Asthma CAD (coronary artery disease) Hypertension Surgical History Surgical History (Updated 03/16/25 @ 05:11 by Enid Parker APRN) Hx of tooth extraction History of endometrial ablation H/O carotid endarterectomy (~03/2012) On the right History of tonsillectomy History of dilatation and curettage x 5-6 History of cholecystectomy (~2002) Hx of CABG (~2016) 3 vessel Family History Family History (Updated 03/16/25 @ 02:09 by Susie Hampton RN) Sibling Hypertension Father , Unknown history No problems noted. Mother Family history of lung cancer COPD (chronic obstructive pulmonary disease) Other Breast cancer maternal aunt Grandparent Brain tumor maternal Social History Social History (Updated 03/16/25 @ 05:13 by Enid Parker APRN) Social History: Ms. Ashley lives at home with her son, Presley, whom she designates as her surrogate decision maker. She is and Presley is her only child. She would like to be a full code. Her PCP is Valorie Perry (previously Dr Polanco). She is independent in her ADLs. She does not use alcohol or drugs. She stated that she is a former smoker however her son smokes cigars in their apartment. She retired from [employer]. Code status: Full code Smoking packs per day: 1 Smoking cigarettes per day: 20.0 Years smoked: 25 Smoking pack-years: 25.00 Smoking status: Former smoker Tobacco type: cigarettes Second hand tobacco smoke exposure: Yes Smoking end date: 03/21/98 Alcohol intake: never Alcohol use details: occasional Substance use: never Substance use type: does not use Lack of Transportation: No Lack of Food: Sometimes True Current Housing: I Have Housing Concerned About Future Housing: No Difficulty Paying Gas/Electric Bills: YES Difficulty Paying for Meds: YES Currently Unemployed: No Education: High School Diploma/GED Difficulty w/ Childcare or Family Care: No Living arrangements: with family Occupation/Education: retired Additional occupation/education comments: [employer] Gender identity (if verbalized by the patient): Female Sexual Orientation (if Verbalized by the Patient): Straight or Heterosexual Spiritual care concerns: Yes (restorationism) Agree to blood products: Yes Meds Home Medications and Allergies Home Medications ?Medication ?Instructions ?Recorded ?Confirmed ?Type insulin syringe-needle U-100 0.5 #100 ea 12/06/22 03/16/25 Rx mL 31 gauge x 5/16 (Comfort EZ Insulin Syringe) blood sugar diagnostic (OneTouch #100 ea 01/03/23 03/16/25 Rx Verio test strips) blood-glucose meter (OneTouch #1 ea 01/03/23 03/16/25 Rx Verio Flex Meter) pen needle, diabetic 29 gauge x #400 ea 07/15/23 03/16/25 Rx 1/2 (Comfort EZ Pen [place]) naproxen sodium 220 mg capsule 220 mg PO Q12H PRN pain (scale 12/21/23 03/16/25 History (Aleve) score 4-6) blood-glucose,butcher's assistant,cont #1 ea 05/29/24 03/16/25 Rx (Dexcom G7 Block Cutter) semaglutide 1 mg/dose (4 mg/3 mL) 1 mg (0.75 mL) subcut WEEKLY #3 mL 06/13/24 03/16/25 Rx subcutaneous pen injector (Ozempic) lancets 30 gauge (OneTouch Delica #100 ea 05/12/25 12/27/25 Rx Plus Lancet) atorvastatin 40 mg tablet 40 mg PO HS #90 tabs 10/02/24 03/16/25 Rx blood-glucose sensor (Dexcom G7 #2 ea 10/02/24 03/16/25 Rx Sensor device) bupropion HCl 150 mg 24 hr tablet, 150 mg PO QAM #90 tabs 10/02/24 03/16/25 Rx extended release (Wellbutrin XL) escitalopram oxalate 20 mg tablet See Rx Instructions .Route 10/02/24 03/16/25 Rx .COMPLEX #30 tabs gabapentin 300 mg capsule See Rx Instructions .Route 10/02/24 03/16/25 Rx .COMPLEX #30 caps nystatin 100,000 unit/gram topical See Rx Instructions .Route 10/03/24 03/16/25 Rx powder .COMPLEX #180 grams lisinopril 20 See Rx Instructions .Route 10/31/24 03/16/25 Rx mg-hydrochlorothiazide 12.5 mg .COMPLEX #32 tabs tablet albuterol sulfate 90 mcg/actuation 2 inh inhalation Q4H PRN shortness 11/15/24 03/16/25 Rx aerosol inhaler of breath or wheezing #8.5 grams clopidogrel 75 mg tablet See Rx Instructions .Route 12/18/24 03/16/25 Rx .COMPLEX #30 tabs insulin degludec 100 unit/mL (3 20 unit (0.2 mL) subcut DAILY #15 02/27/25 03/16/25 Rx mL) subcutaneous pen (Tresiba mL FlexTouch U-100 insulin) acetaminophen 500 mg tablet 1,000 mg PO QID PRN pain (scale 03/16/25 03/16/25 History (Acetaminophen Extra Strength) score 4-6) buspirone 7.5 mg tablet 7.5 mg PO Q12H 03/16/25 03/16/25 History diphenhydramine HCl 25 mg capsule 25 - 50 mg PO HS PRN allergy 03/16/25 03/16/25 History (Allergy (diphenhydramine)) symptoms Allergies Allergy/AdvReac Type Severity Reaction Status Date / Time aspirin Allergy Severe Vomiting, Verified 03/16/25 01:47 hives, SOB mold Allergy Severe Difficulty Verified 03/16/25 01:47 Breathing pollen extracts Allergy Severe Wheezing Verified 03/16/25 01:47 Vital Signs Vital Signs - 24 hr 03/15/25 16:06 03/15/25 19:50 03/15/25 19:57 Temperature 98.3 F Pulse Rate 95 96 74 Respiratory Rate 16 19 16 Blood Pressure 100/56 L 90/60 L Pulse Oximetry 95 97 100 Oxygen Delivery Fraction of Inspired Oxygen 03/15/25 20:01 03/15/25 20:52 03/15/25 20:54 Temperature Pulse Rate 96 91 93 Respiratory Rate 16 Blood Pressure 88/59 L 88/59 L 55/43 L Pulse Oximetry 98 Oxygen Delivery Fraction of Inspired Oxygen 03/15/25 20:58 03/15/25 21:00 03/15/25 21:01 Temperature Pulse Rate 90 82 88 Respiratory Rate 15 20 21 H Blood Pressure 81/52 L Pulse Oximetry 91 96 94 Oxygen Delivery Fraction of Inspired Oxygen 03/15/25 21:02 03/15/25 21:32 03/15/25 22:32 Temperature Pulse Rate 81 76 74 Respiratory Rate 17 16 14 Blood Pressure 124/68 Pulse Oximetry 98 100 98 Oxygen Delivery Fraction of Inspired Oxygen 03/15/25 22:59 03/15/25 23:00 03/15/25 23:01 Temperature Pulse Rate 76 72 73 Respiratory Rate 16 13 18 Blood Pressure 155/136 H Pulse Oximetry 96 97 95 Oxygen Delivery Fraction of Inspired Oxygen 03/15/25 23:15 03/15/25 23:30 03/15/25 23:31 Temperature Pulse Rate 70 72 84 Respiratory Rate 14 18 15 Blood Pressure 117/74 Pulse Oximetry 93 98 Oxygen Delivery Fraction of Inspired Oxygen 03/15/25 23:45 03/16/25 00:00 03/16/25 00:01 Temperature Pulse Rate 69 90 73 Respiratory Rate 16 16 19 Blood Pressure 124/50 L Pulse Oximetry Oxygen Delivery Fraction of Inspired Oxygen 03/16/25 00:15 03/16/25 01:26 03/16/25 01:46 Temperature 97.7 F Pulse Rate 80 81 83 Respiratory Rate 18 20 Blood Pressure 116/50 L Pulse Oximetry 99 Oxygen Delivery Fraction of Inspired Oxygen 03/16/25 02:00 03/16/25 02:47 03/16/25 02:48 Temperature Pulse Rate 72 69 69 Respiratory Rate 20 Blood Pressure Pulse Oximetry 97 97 Oxygen Delivery Autopap Room Air Fraction of Inspired Oxygen 21 03/16/25 04:00 03/16/25 04:00 03/16/25 04:00 Temperature 97.5 F L Pulse Rate 72 86 Respiratory Rate 16 Blood Pressure 124/51 L Pulse Oximetry 99 Oxygen Delivery Room Air Fraction of Inspired Oxygen Exam Const: General: cooperative, comfortable, no acute distress, well developed, awake, Physically active, average body habitus and well nourished Nutritional Appearance: average body habitus and well nourished Orientation/consciousness: oriented to person, oriented to place, oriented to time and patient oriented x3 Limitations: no limitations HENMT: Head: normal to inspection and No palpable skull fracture present Other: Hematoma noted to the right upper portion of the head near the parietal lobe.. Eyes: General: appearance normal, both eyes and all related structures Alignment and Position: alignment normal Periorbital: periorbital findings normal Eyelids: eyelids normal Conjunctivae: conjunctivae normal Sclera: sclerae normal Cornea: corneas normal Pupils: Equal, round and reactive pupils present and Pupil accommodation reflex normal EOM: EOMs intact bilaterally Neck: Neck: normal visual inspection and full ROM Chest: Chest palpation & inspection: normal inspection of the chest Resp: Effort & Inspection: normal respiratory effort Auscultation: clear to auscultation bilaterally Percussion: percussion normal Cardio: Palpation: normal PMI Rate: regular rate Rhythm: regular rhythm Heart sounds: S1 normal heart sound present and S2 normal heart sound present Peripheral pulses: Peripheral pulses 2+ throughout GI: Inspection: normal to inspection Percussion: Yes normal to percussion Auscultation: normal bowel sounds Rectal Exam: deferred Back/Spine/Pelvis: Back: no CVA tenderness Skin: General skin exam: normal color Lesions: no lesions Rashes: no rashes Trauma: no lacerations or abrasions Wounds: no wounds Hair: normal Nails: normal Neuro: General: oriented to person, oriented to place, oriented to time and patient oriented x3 Cranial nerves: Yes Equal, round and reactive pupils present and Yes Normal hearing present Cognition (Neuro): normal cognition Motor exam (neuro): 5/5 motor strength present throughout Sensory Exam: normal sensation Extrem: General: normal to inspection Right upper extremity: normal to inspection and shoulder/upper arm Left upper extremity: normal to inspection and shoulder/upper arm Right lower extremity: normal to inspection Left lower extremity: normal to inspection Psych: Appearance: grossly normal Mental Status: mental status grossly normal Speech and movement: Normal speech and movement present Affect: normal affect Attitude: cooperative Thought process: Normal thought process present Thought content: Yes Normal thought content present Insight: Good insight present (Psych) Judgement: Good judgement present (Psych) Results Labs Labs: Short CBC 03/15/25 Range/Units 19:45 WBC 8.7 (4.5-10.0) K/mm3 Hgb 13.2 (12.0-15.0) g/dL Hct 40.2 (37.0-47.0) % Plt Count 280 (150-375) k/mm3 BMP 03/15/25 19:45 Sodium 143 Potassium 3.8 Chloride 104 Carbon Dioxide 28 BUN 18 H Creatinine 1.39 H Glucose 89 Calcium 9.8 Cardiac Enzymes 03/15/25 03/15/25 Range/Units 19:45 22:28 Troponin I < 0.012 < 0.012 (0.000-0.034) ng/mL Liver Function 03/15/25 Range/Units 19:45 Total Bilirubin 0.7 (0.2-1.3) mg/dL AST 28 (14-36) U/L ALT 21 (6-35) U/L Alkaline Phosphatase 72 (38-126) U/L Albumin 4.1 (3.5-5.1) g/dL Urine 03/15/25 Range/Units 19:45 Urine Color Dark yellow (Yellow) Urine Appearance Turbid H (Clear) Urine pH 5.0 (5.0-9.0) Ur Specific [place] 1.032 (1.001-1.035) Urine Protein 1+ H (Negative) mg/dL Urine Glucose (UA) Negative (Negative) mg/dL Attestation: I personally reviewed all lab results ECG Interpretation: ate 74 [place] 0 QRSd 142 QT 476 QTc 529 --[place]-- P 0 QRS 81 T 25 ATRIAL FIBRILLATION WITH ABERRANT CONDUCTION OR VENTRICULAR PREMATURE COMPLEXES INTRAVENTRICULAR CONDUCTION DELAY [130+ ms QRS DURATION] POSSIBLE RIGHT VENTRICULAR HYPERTROPHY [SOME/ALL OF: PROMINENT R IN V1, LATE TRANSITION, RAD, NELLI, SSS] Compared to ECG 03/15/2025 19:45:53 Ventricular premature complex(es) now present Aberrant conduction of supraventricular beat(s) now present Intraventricular conduction delay now present Atrial flutter no longer present Right bundle-branch block no longer present Imaging CT scan - head: Radiologist's impression: ITS Impressions Head CT 03/15/25 16:10 IMPRESSION: 1. No acute intracranial abnormality. Cervical Spine CT 03/15/25 16:14 IMPRESSION: 1. No acute abnormality of the cervical spine. Chest X-Ray 03/15/25 19:54 Impression: 1: No acute cardiopulmonary disease. Quality VTE Prophylaxis VTE prophylaxis: mechanical ordered Assessment and Plan Assessment and plan (1) Near syncope: Code(s): R55 - Syncope and collapse Status: Acute Assessment and Plan: -the patient stated that her blood sugar and blood pressure have been dropping at home. -her EKG was read is AFib however upon my review patient appears to have a regular rate with PJc sees versus PACs, and PVCs -cardiology has been consulted. The patient may benefit from a Holter monitor. -check orthostatic blood pressures every shift. -may consider midodrine if she has orthostatic hypotension (2) Chest pain: Code(s): R07.9 - Chest pain, unspecified Status: Acute Assessment and Plan: -Troponins have been negative so far. -cardiology has been consulted. -she has a history of having at 3 vessel CABG several years ago. -heart score is 6 moderate risk. -the patient had a Lexiscan 12/28/2020 (3) Atrial fibrillation, new onset: Code(s): I48.91 - Unspecified atrial fibrillation Status: Acute Assessment and Plan: -her EKG was read is atrial fibrillation. However upon my review she appears to be an irregular rate with occasional BJC sees versus PACs and PVCs. -cardiology has been consulted. -Isac Vasc score is 4 with stroke great 8.5% per year. However the patient has been having syncopal episodes with dizziness and falling. Patient will be at risk for a brain bleed with her frequent falls and anticoagulation. Therefore I did not feel safe starting her on any anticoagulation. She has had a history of TIAs with carotid artery disease (hx of right side carotid endarterectomy). She is currently on Plavix which is anti-platelet. (4) Right bundle branch block: Code(s): I45.10 - Unspecified right bundle-branch block Status: Acute Assessment and Plan: -this appears to be old from comparison of old records. 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 -I am holding her diabetic medication for now -check A1c if not performed in the last 3 months. -continue diabetic diet. -last A1c was September 20, 2024 and was 6.0. -hypoglycemic protocol -Accu-Cheks AC and HS with sliding scale insulin. (6) Hypertension: Code(s): I10 - Essential (primary) hypertension Status: Acute Assessment and Plan: -orthostatic blood pressures every shift. -the patient has been hypotensive -all blood pressure medication is on hold at this time. -she was given 3 L of IV fluids in the emergency room. (7) Anxiety and depression: Code(s): F41.9 - Anxiety disorder, unspecified; F32.9 - Major depressive disorder, single episode, unspecified Status: Acute Assessment and Plan: -continue with BuSpar, bupropion, and Lexapro (8) MARIYA (obstructive sleep apnea): Code(s): G47.33 - Obstructive sleep apnea (adult) (pediatric) Status: Acute Assessment and Plan: -the patient stated that her CPAP machine broke at home. -auto titrate CPAP here. The patient will need to have a CPAP replace at home. (9) Chronic kidney disease: Code(s): N18.9 - Chronic kidney disease, unspecified Status: Acute Assessment and Plan: -patient is at her baseline. Her creatinine is 1.23 with a baseline anywhere from 1.1-1.39. BUN is 18. Her GFR is 43 with a baseline anywhere from 37-49. -she has had a kidney MRI 01/01/2021 that shows benign cysts in the kidneys.
[2025-03-16 05:16] LABS: Anion Gap 5 mmol/L (4-12); Blood Urea Nitrogen 18 mg/dL (7-17); Calcium 9.0 mg/dL (8.4-10.2); Carbon Dioxide 30 mmol/L (22-30); Chloride 106 mmol/L (98-107); Estimated CRCL calculation 40 ml/min; Estimated Glomerular Filt Rate 43; Glucose 69 mg/dL (65-110); Potassium 3.5 mmol/L (3.4-5.0); Sodium 141 mmol/L (137-145)
[2025-03-16 05:21] LABS: Troponin I < 0.012 ng/mL (0.000-0.034)
[2025-03-16 05:35] LABS: Hematocrit 36.5 % (37.0-47.0); Hemoglobin 11.9 g/dL (12.0-15.0); Mean Corpuscular HGB Conc 32.6 g/dl (32-36); Mean Corpuscular Hemoglobin 29.5 pg (26-34); Mean Corpuscular Volume 90.6 fl (80-100); Platelet Count Result 238 k/mm3 (150-375); Red Blood Count 4.03 M/mm3 (4.2-5.4); White Blood Count 5.6 K/mm3 (4.5-10.0)
[2025-03-16] MEDS: cefTRIAXone 1 GM in SODIUM CHLORIDE 0.9% IV 50 ML 100 ML IVPB (05:56)
[2025-03-16 05:59] LABS: Hemoglobin A1C 4.9 % (<5.7)
--- NOTE | 2025-03-16 07:04 | P.PNIM_ITS ---
Assessment and Plan Assessment and Plan (1) Near syncope: Code(s): R55 - Syncope and collapse Status: Acute Assessment and Plan: -presented with hypoglycemia and significant orthostasis (BP 55/43 upon standing) - s/p multiple liters of IV fluids with improvement. - cardio consulted - recommended to stop lisinopril-HCTZ. Continue to monitor on telemetry. -check orthostatic blood pressures every shift. -ordered compression stockings. Encouraged PO hydration and changing positions slowly. (2) Chest pain: Code(s): R07.9 - Chest pain, unspecified Status: Acute Assessment and Plan: - EKG with no acute ischemic changes - troponins negative x3 - prior history of CAD s/p CABG - HEART score 6 -cardiology consulted - no further ischemic work-up planned (3) UTI (urinary tract infection): Code(s): N39.0 - Urinary tract infection, site not specified Status: Acute Assessment and Plan: - UA with 1+ ketones, 2+ LE, WBC 11-20, 4+ bacteria - started on IV Rocephin - follow-up urine culture and blood culture (4) Atrial fibrillation, new onset: Code(s): I48.91 - Unspecified atrial fibrillation Status: Acute Assessment and Plan: -her EKG was read is atrial fibrillation. May be sinus with PVCs - CHADs-VASc - 4. Anticoagulation held on admit due to concerns for frequent falls -cardiology consulted - low suspicion for Afib. Continue to monitor on tele. (5) Type 2 diabetes mellitus with diabetic neuropathy, with long-term current use of insulin: Code(s): E11.40 - Type 2 diabetes mellitus with diabetic neuropathy, unspecified; Z79.4 - intermediate (current) use of insulin Status: Acute Assessment and Plan: - episodes of hypoglycemia, glucose 67 in ER - on basal insulin and semaglutide - Hgb A1c only 4.7 - holding insulin -continue diabetic diet. -hypoglycemic protocol -Accu-Cheks AC and HS with sliding scale insulin. (6) Hypertension: Code(s): I10 - Essential (primary) hypertension Status: Acute Assessment and Plan: - lisinopril-HCTZ held due to orthostasis - monitor BP (7) Anxiety and depression: Code(s): F41.9 - Anxiety disorder, unspecified; F32.9 - Major depressive disorder, single episode, unspecified Status: Acute Assessment and Plan: -continue with BuSpar, bupropion, and Lexapro (8) MARIYA (obstructive sleep apnea): Code(s): G47.33 - Obstructive sleep apnea (adult) (pediatric) Status: Acute Assessment and Plan: -the patient stated that her CPAP machine broke at home. -contiue CPAP qHS while admitted (9) Chronic kidney disease: Code(s): N18.9 - Chronic kidney disease, unspecified Status: Acute Assessment and Plan: -Cr 1.23, near baseline - avoid nephrotoxins Plan Code status: full code DVT prophylaxis: SCDs Dispo: likely home tomorrow. Follow-up PT/OT recs Medical Record Review I have reviewed the following patient records and this information was taken into consideration when formulating the assessment and plan.: previous labs Subjective Date/time seen: 03/16/25 07:04 Interval history: Patient seen and examined at bedside. Feeling better this AM, minimal lightheadedness. Discussed orthostatic hypotension and the importance of hydration and changing positions slowly. Review of Systems Review of Systems: All systems reviewed & are unremarkable except as noted in HPI and below Exam 2 Narrative: General: NAD Eyes: EOMI ENT: neck supple Cardiovascular: Regular rate and rhythm Respiratory: Clear to auscultation, respirations even and unlabored on RA Gastrointestinal: Soft, non tender Genitourinary: no suprapubic tenderness Musculoskeletal: No edema Skin: warm, dry Neuro: Alert. Psych: Mood appropriate Objective Data Vital Signs Vital Signs: Vital Signs - 24 hr 03/15/25 16:06 03/15/25 19:50 03/15/25 19:57 Temperature 98.3 F Pulse Rate 95 96 74 Respiratory Rate 16 19 16 Blood Pressure 100/56 L 90/60 L Pulse Oximetry 95 97 100 Oxygen Delivery Fraction of Inspired Oxygen 03/15/25 20:01 03/15/25 20:52 03/15/25 20:54 Temperature Pulse Rate 96 91 93 Respiratory Rate 16 Blood Pressure 88/59 L 88/59 L 55/43 L Pulse Oximetry 98 Oxygen Delivery Fraction of Inspired Oxygen 03/15/25 20:58 03/15/25 21:00 03/15/25 21:01 Temperature Pulse Rate 90 82 88 Respiratory Rate 15 20 21 H Blood Pressure 81/52 L Pulse Oximetry 91 96 94 Oxygen Delivery Fraction of Inspired Oxygen 03/15/25 21:02 03/15/25 21:32 03/15/25 22:32 Temperature Pulse Rate 81 76 74 Respiratory Rate 17 16 14 Blood Pressure 124/68 Pulse Oximetry 98 100 98 Oxygen Delivery Fraction of Inspired Oxygen 03/15/25 22:59 03/15/25 23:00 03/15/25 23:01 Temperature Pulse Rate 76 72 73 Respiratory Rate 16 13 18 Blood Pressure 155/136 H Pulse Oximetry 96 97 95 Oxygen Delivery Fraction of Inspired Oxygen 03/15/25 23:15 03/15/25 23:30 03/15/25 23:31 Temperature Pulse Rate 70 72 84 Respiratory Rate 14 18 15 Blood Pressure 117/74 Pulse Oximetry 93 98 Oxygen Delivery Fraction of Inspired Oxygen 03/15/25 23:45 03/16/25 00:00 03/16/25 00:01 Temperature Pulse Rate 69 90 73 Respiratory Rate 16 16 19 Blood Pressure 124/50 L Pulse Oximetry Oxygen Delivery Fraction of Inspired Oxygen 03/16/25 00:15 03/16/25 01:26 03/16/25 01:46 Temperature 97.7 F Pulse Rate 80 81 83 Respiratory Rate 18 20 Blood Pressure 116/50 L Pulse Oximetry 99 Oxygen Delivery Fraction of Inspired Oxygen 03/16/25 02:00 03/16/25 02:47 03/16/25 02:48 Temperature Pulse Rate 72 69 69 Respiratory Rate 20 Blood Pressure Pulse Oximetry 97 97 Oxygen Delivery Autopap Room Air Fraction of Inspired Oxygen 21 03/16/25 04:00 03/16/25 04:00 03/16/25 04:00 Temperature 97.5 F L Pulse Rate 72 86 Respiratory Rate 16 Blood Pressure 124/51 L Pulse Oximetry 99 Oxygen Delivery Room Air Fraction of Inspired Oxygen 03/16/25 04:58 03/16/25 06:00 Temperature Pulse Rate 77 70 Respiratory Rate Blood Pressure Pulse Oximetry 94 Oxygen Delivery Autopap Fraction of Inspired Oxygen Intake/Output Intake/Output: Intake & Output 03/13/25 03/14/25 03/15/25 03/16/25 23:59 23:59 23:59 23:59 Intake Total 1500 786 Output Total 0 Balance 1500 786 Meds/Results Medications: Active Medications Generic Name Dose Route Start Last Admin Trade Name Freq PRN Reason Stop Dose Admin Acetaminophen 650 mg 03/16/25 00:07 Acetaminophen 325 Mg Tablet PO Q4H PRN Mild Pain (1-3) or Fever Albuterol 2 puff 03/16/25 04:46 Albuterol Sulfate (*Sp) Aerosol 1 Puff INHALATION Q4H PRN Shortness Of Breath Or Wheezing Atorvastatin Calcium 40 mg 03/16/25 21:00 Atorvastatin 40 Mg Tablet PO HS JANA Bupropion HCl 150 mg 03/16/25 09:00 Bupropion Hcl Xl (24 Hr) 150 Mg Tabcr PO QAM JANA Buspirone HCl 5 mg 03/16/25 09:00 Buspirone Hcl 5 Mg Tablet PO Q12HR JANA Buspirone HCl 2.5 mg 03/16/25 09:00 Buspirone Hcl 2.5 Mg Tablet PO Q12HR [facility] Clopidogrel Bisulfate 75 mg 03/16/25 09:00 Clopidogrel Bisulfate 75 Mg Tablet BY MOUTH DAILY JANA Dextrose 12.5 gm 03/16/25 00:08 Dextrose 50% 25 Gm/50 Ml Syringe IV PUSH PRN PRN Hypoglycemia Protocol Escitalopram Oxalate 10 mg 03/16/25 09:00 Escitalopram Oxalate 10 Mg Tablet BY MOUTH DAILY [facility] Gabapentin 300 mg 03/16/25 21:00 Gabapentin 300 Mg Capsule BY MOUTH HS [facility] Glucagon 1 mg 03/16/25 00:08 Glucagon For Inj 1 Mg Vial IM PRN PRN Hypoglycemia Protocol Glucose 15 gm 03/16/25 00:08 Glucose Oral Gel 15 Gm Of Glucse In 37.5 Gm Tube PO PRN PRN Hypoglycemia Protocol Dextrose 1,000 mls @ 100 mls/hr 03/16/25 00:08 Dextrose 5% 1,000 Ml IVPB PRN PRN Hypoglycemia Protocol Ceftriaxone Sodium 1 gm/ 50 mls @ 100 mls/hr 03/16/25 06:00 03/16/25 06:30 Sodium Chloride IVPB Infused Q24H JANA Infusion Insulin Aspart 2 - 5 units 03/16/25 08:00 Insulin Aspart (*Bkc) 100 Units/Ml SUB-Q TIDWM [facility] Protocol Miscellaneous Information 1 each 03/16/25 09:00 Nystatin 100,000 Unit/Gram Powder Autosub To Tolnaftate Powder XX 03/17/25 08:59 Q12HR JANA Ondansetron HCl 4 mg 03/16/25 00:07 Ondansetron Inj 4 Mg/2 Ml Vial IV PUSH Q4H PRN Nausea Perflutren Lipid Microsphere 0 ml 03/16/25 05:24 Perflutren Lipid Microspheres 1.5 Ml Vial Diluted To 10 Ml Total Volume IV PUSH 03/19/25 05:24 ONCE PRN adequate visualization Protocol Radiology Results: ITS Impressions Head CT 03/15/25 16:10 IMPRESSION: 1. No acute intracranial abnormality. Cervical Spine CT 03/15/25 16:14 IMPRESSION: 1. No acute abnormality of the cervical spine. Chest X-Ray 03/15/25 19:54 Impression: 1: No acute cardiopulmonary disease. Labs Labs: Laboratory Results - last 24 hr 03/15/25 03/15/25 03/15/25 19:44 19:45 19:55 WBC 8.7 RBC 4.46 Hgb 13.2 Hct 40.2 MCV 90.1 MCH 29.6 MCHC 32.8 RDW 13.2 Plt Count 280 MPV 9.1 Immature Gran % (Auto) 0.3 Neut % (Auto) 70.0 Lymph % (Auto) 19.4 Towner % (Auto) 8.2 Eos % (Auto) 1.6 Baso % (Auto) 0.5 Lymph # (Auto) 1.69 [place]er # (Auto) 0.7 H Eos # (Auto) 0.1 Baso # (Auto) 0.0 Abs Immat Gran (auto) 0.03 Absolute Neuts (auto) 6.1 Absolute Nucleated RBC 0.000 Nucleated RBC % 0.0 PT 15.0 H INR 1.2 APTT 27.5 Sodium 143 Potassium 3.8 Chloride 104 Carbon Dioxide 28 Anion Gap 11 BUN 18 H Creatinine 1.39 H Estim Creat Clear Calc Not Reportable Estimated GFR 37 L Glucose 89 POC Capillary Glucose Hemoglobin A1c Calcium 9.8 Total Bilirubin 0.7 AST 28 ALT 21 Alkaline Phosphatase 72 Troponin I < 0.012 NT-Pro-B Natriuret Pep 472 H Total Protein 7.6 Albumin 4.1 Lipase 58 TSH 0.658 Urine Color Dark yellow Urine Appearance Turbid H Urine pH 5.0 Ur Specific [place] 1.032 Urine Protein 1+ H Urine Glucose (UA) Negative Urine Ketones 1+ H Ur Blood (Man) Negative Urine Nitrate Negative Urine Bilirubin 1+ H Urine Urobilinogen 1.0 Add Ur Microanalysis Reviewed Leukocyte Esterase Rfl 2+ H Urine RBC 11-20 H Urine WBC 11-20 H Ur Squamous Epith Cells Moderate Calcium Oxalate Crystal Present Urine Bacteria 4+ H Urine Casts >20 Hyaline Casts Present Urine Mucus Present 03/15/25 03/16/25 03/16/25 22:28 01:33 02:23 WBC RBC Hgb Hct MCV MCH MCHC RDW Plt Count MPV Immature Gran % (Auto) Neut % (Auto) Lymph % (Auto) Town[place] % (Auto) Eos % (Auto) Baso % (Auto) Lymph # (Auto) [place] # (Auto) Eos # (Auto) Baso # (Auto) Abs Immat Gran (auto) Absolute Neuts (auto) Absolute Nucleated RBC Nucleated RBC % PT INR APTT Sodium Potassium Chloride Carbon Dioxide Anion Gap BUN Creatinine Estim Creat Clear Calc Estimated GFR Glucose POC Capillary Glucose 68 92 Hemoglobin A1c Calcium Total Bilirubin AST ALT Alkaline Phosphatase Troponin I < 0.012 NT-Pro-B Natriuret Pep Total Protein Albumin Lipase TSH Urine Color Urine Appearance Urine pH Ur Specific [place] Urine Protein Urine Glucose (UA) Urine Ketones Ur Blood (Man) Urine Nitrate Urine Bilirubin Urine Urobilinogen Add Ur Microanalysis Leukocyte Esterase Rfl Urine RBC Urine WBC Ur Squamous Epith Cells Calcium Oxalate Crystal Urine Bacteria Urine Casts Hyaline Casts Urine Mucus 03/16/25 03/16/25 03/16/25 03:52 04:12 04:28 WBC 5.6 RBC 4.03 L Hgb 11.9 L Hct 36.5 L MCV 90.6 MCH 29.5 MCHC 32.6 RDW 13.2 Plt Count 238 MPV 9.3 Immature Gran % (Auto) Neut % (Auto) Lymph % (Auto) Towner % (Auto) Eos % (Auto) Baso % (Auto) Lymph # (Auto) [place] # (Auto) Eos # (Auto) Baso # (Auto) Abs Immat Gran (auto) Absolute Neuts (auto) Absolute Nucleated RBC Nucleated RBC % PT INR APTT Sodium 141 Potassium 3.5 Chloride 106 Carbon Dioxide 30 Anion Gap 5 BUN 18 H Creatinine 1.23 H Estim Creat Clear Calc 40 Estimated GFR 43 L Glucose 69 POC Capillary Glucose 67 85 Hemoglobin A1c 4.9 Calcium 9.0 Total Bilirubin AST ALT Alkaline Phosphatase Troponin I < 0.012 NT-Pro-B Natriuret Pep Total Protein Albumin Lipase TSH Urine Color Urine Appearance Urine pH Ur Specific [place] Urine Protein Urine Glucose (UA) Urine Ketones Ur Blood (Man) Urine Nitrate Urine Bilirubin Urine Urobilinogen Add Ur Microanalysis Leukocyte Esterase Rfl Urine RBC Urine WBC Ur Squamous Epith Cells Calcium Oxalate Crystal Urine Bacteria Urine Casts Hyaline Casts Urine Mucus 03/16/25 03/16/25 04:59 06:50 WBC RBC Hgb Hct MCV MCH MCHC RDW Plt Count MPV Immature Gran % (Auto) Neut % (Auto) Lymph % (Auto) [place] % (Auto) Eos % (Auto) Baso % (Auto) Lymph # (Auto) [place] # (Auto) Eos # (Auto) Baso # (Auto) Abs Immat Gran (auto) Absolute Neuts (auto) Absolute Nucleated RBC Nucleated RBC % PT INR APTT Sodium Potassium Chloride Carbon Dioxide Anion Gap BUN Creatinine Estim Creat Clear Calc Estimated GFR Glucose POC Capillary Glucose 122 H 94 Hemoglobin A1c Calcium Total Bilirubin AST ALT Alkaline Phosphatase Troponin I NT-Pro-B Natriuret Pep Total Protein Albumin Lipase TSH Urine Color Urine Appearance Urine pH Ur Specific [place] Urine Protein Urine Glucose (UA) Urine Ketones Ur Blood (Man) Urine Nitrate Urine Bilirubin Urine Urobilinogen Add Ur Microanalysis Leukocyte Esterase Rfl Urine RBC Urine WBC Ur Squamous Epith Cells Calcium Oxalate Crystal Urine Bacteria Urine Casts Hyaline Casts Urine Mucus Quality VTE Prophylaxis VTE prophylaxis: mechanical ordered
[2025-03-16] MEDS: ACETAMINOPHEN 325 MG TABLET 650 MG PO (09:22)
[2025-03-16] MEDS: CLOPIDOGREL BISULFATE 75 MG TABLET BY MOUTH (09:23)
[2025-03-16] MEDS: buPROPion HCL XL (24 HR) 150 MG TABCR PO (09:23)
[2025-03-16] MEDS: ESCITALOPRAM OXALATE 10 MG TABLET BY MOUTH (09:23)
[2025-03-16] MEDS: busPIRone HCL 2.5 MG TABLET PO ×2 (09:23→21:18)
[2025-03-16] MEDS: PERFLUTREN LIPID MICROSPHERES 1.5 ML VIAL DILUTED TO 10 ML TOTAL VOLUME IV PUSH (10:00)
--- NOTE | 2025-03-16 10:39 | PM.CNCAR ---
Assessment and Plan Assessment and plan (1) Orthostatic hypotension: Code(s): I95.1 - Orthostatic hypotension Status: Acute Plan 74-year-old lady with: Symptomatic hypotension with orthostasis. This has been improved significantly with IV fluid volume as well as discontinuance of her lisinopril/hydrochlorothiazide. She has a history of ischemic heart disease and has been stable since surgical revascularization back in 2016. The patient's cardiac rhythm is challenging to discern since there is a significant amount of baseline artifact on most of her rhythm strips and ECGs but I do not believe she has atrial fibrillation as I mentioned above. She probably should be observed at least another 24 hours in the hospital if she is no longer having problematic hypotension she can then be discharged without her ARMINDA inhibitor/diuretic on board. I did recommend that she reestablish in our office for ongoing follow-up I will see to it that the office schedules appropriate follow-up after the weekend and reaches out to her. Demario Suarez MD [facility] History of Present Illness History of Present Illness Consult date/time: 03/16/25 10:39 Reason For Visit: near syncope; new onset afib,CP with HEART score 4 Narrative: This is a 74-year-old lady I am seeing today in consultation at the request of the hospitalist because of irregular heart rate. The patient is known to me with a history of coronary disease that was identified back in 2016. She has not been compliant with office follow-up I have not seen her in the office since 2021. She came to the hospital yesterday because of symptoms of positional lightheadedness associated with a sense of presyncope and a couple of falls. She fell at home again and struck her head on the floor yesterday and was brought to the hospital for evaluation. It was found on the emergency room that she was significantly hypotensive and had orthostatic vital signs. She was given some IV fluid and lisinopril which she has been taking for hypertension has been stopped. She was admitted to the hospital for further evaluation. Her electrocardiograms and most of her telemetry strips on the chart him a significant amount of baseline artifact and were officially read as atrial fibrillation. Careful review of her rhythm strips in my opinion appear to show shallow but evident sinus P-waves indicating that she is not in atrial fibrillation. Because of this issue we were primarily consulted to see her. She feels well this morning her blood pressure has normalized and she has no complaints at this moment. She has not really been out of bed doing much walking around on the floors. She has a history of coronary artery disease for which I saw her initially back in 2017. She presented to this hospital with acute coronary syndrome and was brought for left heart catheterization which demonstrated high-grade stenosis in the left main coronary artery. Surgical revascularization was recommended for this she was referred to [facility] where she received an internal mammary graft to the LAD, a vein graft to the OM and a vein graft to the RPDA. She did fairly well in follow-up after that once again since 2021 she has not been compliant with office follow-up. She has been maintained on clopidogrel as an anti-platelet agent because of aspirin allergy. Review of Systems Constitutional: Constitutional: Reports no additional constitutional complaints Eyes: Eyes: Reports no additional eye complaints ENT: Reports system reviewed and no additional complaints, except as documented Cardiovascular: Cardiovascular: Reports as per HPI and Reports lightheadedness Respiratory: Respiratory: Reports no additional respiratory complaints Gastrointestinal: Gastrointestinal: Reports no additional gastrointestinal complaints Musculoskeletal: Musculoskeletal: Reports back pain Integumentary/Breasts: Skin/Breast: Reports system reviewed and no additional complaints, except as docu Neurologic: Reports as per HPI Endocrine: Endocrine: Reports no additional endocrine complaints Hematologic/Lymphatic: Hematologic/Lymphatic: Reports no additional hematologic/lymphatic complaints Allergic/Immunologic: Allergic/Immunologic: Reports no additional allergic/immunologic complaints [facility] Past Medical History Medical History (Updated 03/16/25 @ 07:25 by IVONE Gutierrez) Chronic kidney disease Sleep apnea, unspecified Chest pain Low back pain radiating to left leg Cellulitis of face Myocardial infarct approx 2016 Insulin dependent type 2 diabetes mellitus insulin once daily + Ozempic on MARIYA (obstructive sleep apnea) Seasonal allergies Diverticulosis TIA (transient ischemic attack) Anxiety and depression Asthma CAD (coronary artery disease) Hypertension Surgical History Surgical History (Updated 03/16/25 @ 05:11 by Enid Parker APRN) Hx of tooth extraction History of endometrial ablation H/O carotid endarterectomy (~03/2012) On the right History of tonsillectomy History of dilatation and curettage x 5-6 History of cholecystectomy (~2002) Hx of CABG (~2016) 3 vessel Family History Family History (Updated 03/16/25 @ 02:09 by Susie Hampton RN) Sibling Hypertension Father , Unknown history No problems noted. Mother Family history of lung cancer COPD (chronic obstructive pulmonary disease) Other Breast cancer maternal aunt Grandparent Brain tumor maternal Social History Social History (Updated 03/16/25 @ 05:13 by Enid Parker APRN) Social History: Ms. Ashley lives at home with her son, Presley, whom she designates as her surrogate decision maker. She is and Presley is her only child. She would like to be a full code. Her PCP is Valorie Perry (previously Dr Polanco). She is independent in her ADLs. She does not use alcohol or drugs. She stated that she is a former smoker however her son smokes cigars in their apartment. She retired from [employer]. Code status: Full code Smoking packs per day: 1 Smoking cigarettes per day: 20.0 Years smoked: 25 Smoking pack-years: 25.00 Smoking status: Former smoker Tobacco type: cigarettes Second hand tobacco smoke exposure: Yes Smoking end date: 03/21/98 Alcohol intake: never Alcohol use details: occasional Substance use: never Substance use type: does not use Lack of Transportation: No Lack of Food: Sometimes True Current Housing: I Have Housing Concerned About Future Housing: No Difficulty Paying Gas/Electric Bills: YES Difficulty Paying for Meds: YES Currently Unemployed: No Education: High School Diploma/GED Difficulty w/ Childcare or Family Care: No Living arrangements: with family Occupation/Education: retired Additional occupation/education comments: [employer] Gender identity (if verbalized by the patient): Female Sexual Orientation (if Verbalized by the Patient): Straight or Heterosexual Spiritual care concerns: Yes (christian) Agree to blood products: Yes Meds Home Medications and Allergies Home Medications ?Medication ?Instructions ?Recorded ?Confirmed ?Type insulin syringe-needle U-100 0.5 #100 ea 12/06/22 03/16/25 Rx mL 31 gauge x 5/16 (Comfort EZ Insulin Syringe) blood sugar diagnostic (OneTouch #100 ea 01/03/23 03/16/25 Rx Verio test strips) blood-glucose meter (OneTouch #1 ea 01/03/23 03/16/25 Rx Verio Flex Meter) pen needle, diabetic 29 gauge x #400 ea 07/15/23 03/16/25 Rx 1/2 (Comfort EZ Pen [place]) naproxen sodium 220 mg capsule 220 mg PO Q12H PRN pain (scale 12/21/23 03/16/25 History (Aleve) score 4-6) blood-glucose,guide dog instructor,cont #1 ea 05/29/24 03/16/25 Rx (Dexcom G7 Child Psychology Teacher) semaglutide 1 mg/dose (4 mg/3 mL) 1 mg (0.75 mL) subcut WEEKLY #3 mL 06/13/24 03/16/25 Rx subcutaneous pen injector ([facility] [place]) lancets 30 gauge (OneTouch Delica #100 ea 07/30/24 03/16/25 Rx Plus Lancet) atorvastatin 40 mg tablet 40 mg PO HS #90 tabs 10/02/24 03/16/25 Rx blood-glucose sensor (Dexcom G7 #2 ea 10/02/24 03/16/25 Rx Sensor device) bupropion HCl 150 mg 24 hr tablet, 150 mg PO QAM #90 tabs 10/02/24 03/16/25 Rx extended release (Wellbutrin XL) escitalopram oxalate 20 mg tablet See Rx Instructions .Route 10/02/24 03/16/25 Rx .COMPLEX #30 tabs gabapentin 300 mg capsule See Rx Instructions .Route 10/02/24 03/16/25 Rx .COMPLEX #30 caps nystatin 100,000 unit/gram topical See Rx Instructions .Route 10/03/24 03/16/25 Rx powder .COMPLEX #180 grams lisinopril 20 See Rx Instructions .Route 10/31/24 03/16/25 Rx mg-hydrochlorothiazide 12.5 mg .COMPLEX #32 tabs tablet albuterol sulfate 90 mcg/actuation 2 inh inhalation Q4H PRN shortness 11/15/24 03/16/25 Rx aerosol inhaler of breath or wheezing #8.5 grams clopidogrel 75 mg tablet See Rx Instructions .Route 12/18/24 03/16/25 Rx .COMPLEX #30 tabs insulin degludec 100 unit/mL (3 20 unit (0.2 mL) subcut DAILY #15 02/27/25 03/16/25 Rx mL) subcutaneous pen (Tresiba mL FlexTouch U-100 insulin) acetaminophen 500 mg tablet 1,000 mg PO QID PRN pain (scale 03/16/25 03/16/25 History (Acetaminophen Extra Strength) score 4-6) buspirone 7.5 mg tablet 7.5 mg PO Q12H 03/16/25 03/16/25 History diphenhydramine HCl 25 mg capsule 25 - 50 mg PO HS PRN allergy 03/16/25 03/16/25 History (Allergy (diphenhydramine)) symptoms Allergies Allergy/AdvReac Type Severity Reaction Status Date / Time aspirin Allergy Severe Vomiting, Verified 03/16/25 01:47 hives, SOB mold Allergy Severe Difficulty Verified 03/16/25 01:47 Breathing pollen extracts Allergy Severe Wheezing Verified 03/16/25 01:47 Vital Signs Vital Signs - 24 hr 03/15/25 16:06 03/15/25 19:50 03/15/25 19:57 Temperature 36.8 C Pulse Rate 95 96 74 Respiratory Rate 16 19 16 Blood Pressure 100/56 L 90/60 L Pulse Oximetry 95 97 100 Oxygen Delivery Fraction of Inspired Oxygen 03/15/25 20:01 03/15/25 20:52 03/15/25 20:54 Temperature Pulse Rate 96 91 93 Respiratory Rate 16 Blood Pressure 88/59 L 88/59 L 55/43 L Pulse Oximetry 98 Oxygen Delivery Fraction of Inspired Oxygen 03/15/25 20:58 03/15/25 21:00 03/15/25 21:01 Temperature Pulse Rate 90 82 88 Respiratory Rate 15 20 21 H Blood Pressure 81/52 L Pulse Oximetry 91 96 94 Oxygen Delivery Fraction of Inspired Oxygen 03/15/25 21:02 03/15/25 21:32 03/15/25 22:32 Temperature Pulse Rate 81 76 74 Respiratory Rate 17 16 14 Blood Pressure 124/68 Pulse Oximetry 98 100 98 Oxygen Delivery Fraction of Inspired Oxygen 03/15/25 22:59 03/15/25 23:00 03/15/25 23:01 Temperature Pulse Rate 76 72 73 Respiratory Rate 16 13 18 Blood Pressure 155/136 H Pulse Oximetry 96 97 95 Oxygen Delivery Fraction of Inspired Oxygen 03/15/25 23:15 03/15/25 23:30 03/15/25 23:31 Temperature Pulse Rate 70 72 84 Respiratory Rate 14 18 15 Blood Pressure 117/74 Pulse Oximetry 93 98 Oxygen Delivery Fraction of Inspired Oxygen 03/15/25 23:45 03/16/25 00:00 03/16/25 00:01 Temperature Pulse Rate 69 90 73 Respiratory Rate 16 16 19 Blood Pressure 124/50 L Pulse Oximetry Oxygen Delivery Fraction of Inspired Oxygen 03/16/25 00:15 03/16/25 01:26 03/16/25 01:46 Temperature 36.5 C Pulse Rate 80 81 83 Respiratory Rate 18 20 Blood Pressure 116/50 L Pulse Oximetry 99 Oxygen Delivery Fraction of Inspired Oxygen 03/16/25 02:00 03/16/25 02:47 03/16/25 02:48 Temperature Pulse Rate 72 69 69 Respiratory Rate 20 Blood Pressure Pulse Oximetry 97 97 Oxygen Delivery Autopap Room Air Fraction of Inspired Oxygen 21 03/16/25 04:00 03/16/25 04:00 03/16/25 04:00 Temperature 36.4 C L Pulse Rate 72 86 Respiratory Rate 16 Blood Pressure 124/51 L Pulse Oximetry 99 Oxygen Delivery Room Air Fraction of Inspired Oxygen 03/16/25 04:58 03/16/25 06:00 03/16/25 07:44 Temperature 36.6 C Pulse Rate 77 70 73 Respiratory Rate 20 Blood Pressure 126/53 L Pulse Oximetry 94 97 Oxygen Delivery Autopap Fraction of Inspired Oxygen 03/16/25 08:10 03/16/25 08:10 03/16/25 08:11 Temperature Pulse Rate 77 87 93 Respiratory Rate Blood Pressure 118/62 106/61 79/23 L Pulse Oximetry 98 99 96 Oxygen Delivery Fraction of Inspired Oxygen Exam Const: Other: Very pleasant obese woman in no distress of any kind comfortable and cooperative HENMT: Face/Nose/Sinus: Normal nares present Eyes: Sclera: sclerae normal Neck: Neck: supple and no JVD Resp: Effort & Inspection: normal respiratory effort Auscultation: clear to auscultation bilaterally Cardio: Rate: regular rate Rhythm: regular rhythm Other: Patient has a soft grade 2 systolic murmur that does not radiate from the left sternal border. No diastolic murmur no gallop GI: GI Palp: Yes Soft to palpation Auscultation: normal bowel sounds Skin: General skin exam: normal color Neuro: Other: Alert and oriented x3 Extrem: General: normal to inspection Results Labs and Meds 03/16/25 04:12 03/16/25 04:12 Lab results: Cardiac Enzymes 1203/15/25 03/16/25 Range/Units 19:45 22:28 04:12 AST 28 (14-36) U/L Troponin I < 0.012 < 0.012 < 0.012 (0.000-0.034) ng/mL Coagulation 03/15/25 Range/Units 19:44 PT 15.0 H (11.1-14.7) Seconds APTT 27.5 (22.3-36.8) Seconds CBC 03/15/25 03/16/25 Range/Units 19:45 04:12 WBC 8.7 5.6 (4.5-10.0) K/mm3 RBC 4.46 4.03 L (4.2-5.4) M/mm3 Hgb 13.2 11.9 L (12.0-15.0) g/dL Hct 40.2 36.5 L (37.0-47.0) % Plt Count 280 238 (150-375) k/mm3 Lymph # (Auto) 1.69 (0.9-3.2) K/mm3 [place] # (Auto) 0.7 H (0.1-0.6) K/mm3 Eos # (Auto) 0.1 (0-0.3) K/mm3 Baso # (Auto) 0.0 (0.0-0.1) K/mm3 Comprehensive Metabolic Panel 03/15/25 03/16/25 Range/Units 19:45 04:12 Sodium 143 141 (137-145) mmol/L Potassium 3.8 3.5 (3.4-5.0) mmol/L Chloride 104 106 (98-107) mmol/L Carbon Dioxide 28 30 (22-30) mmol/L BUN 18 H 18 H (7-17) mg/dL Creatinine 1.39 H 1.23 H (0.7-1.0) mg/dL Glucose 89 69 (65-110) mg/dL Calcium 9.8 9.0 (8.4-10.2) mg/dL AST 28 (14-36) U/L ALT 21 (6-35) U/L Alkaline Phosphatase 72 (38-126) U/L Total Protein 7.6 (6.3-8.2) g/dL Albumin 4.1 (3.5-5.1) g/dL Intake and Output 03/15/25 03/16/25 03/16/25 23:59 07:59 15:59 Intake Total 1500 786 120 Output Total 0 Balance 1500 786 120 Intake: IV 1500 50 Sodium Chloride 0.9% IV 500 ml 1500 @ 999 mls/hr IV CONT .Q31M STA Rx#:[id number] cefTRIAXone 1 gm In Sodium 50 Chloride 0.9% IV 50 ml @ 100 mls/hr IVPB Q24H [facility] Rx#: [id number] Oral 736 120 Output: Urine 0 Other: Number of Bowel Movements Today 0 Patient Weight 03/16/25 23:59 Weight 91.4 kg
--- NOTE | 2025-03-16 11:27 | IVDEFINITY ---
Prior to administration of IV Definity the patient was educated on the risks and benefits of the imaging enhancing agent including potential adverse side effects. The patient verbalized understanding. Allergies were verified. No exclusion criteria were identified and at least one of the following inclusion criteria were met: 1) physician request, 2) patient technically difficult to image (per the [place] [employer] Echocardiography guidelines of two or more segments not discernable within the apical view), or 3) questionable left ventricular function. ?
[2025-03-16] MEDS: ATORVASTATIN 40 MG TABLET PO (21:18)
[2025-03-16] MEDS: GABAPENTIN 300 MG CAPSULE BY MOUTH (21:18)
[2025-03-17] VITALS: BP 127/58; PULSE 76; PULSE 84; RESP 16; TEMP 36.9; O2SAT 98
--- NOTE | 2025-03-17 02:59 | PC.NURSE ---
This patient, Rosana Ashley, was transferred to [[id number] ] on 03/17/25 at 0251. Personal belongings sent with patient. Report given to [Yaneli ]. Appropriate documentation sent with patient
[2025-03-17 04:00] VITALS: PULSE 86
[2025-03-17 04:32] VITALS: BP 121/60; PULSE 81; RESP 16; TEMP 36.6; O2SAT 99
[2025-03-17 05:19] LABS: Hematocrit 33.3 % (37.0-47.0); Hemoglobin 10.8 g/dL (12.0-15.0); Mean Corpuscular HGB Conc 32.4 g/dl (32-36); Mean Corpuscular Hemoglobin 29.0 pg (26-34); Mean Corpuscular Volume 89.3 fl (80-100); Platelet Count Result 199 k/mm3 (150-375); Red Blood Count 3.73 M/mm3 (4.2-5.4); White Blood Count 4.9 K/mm3 (4.5-10.0)
[2025-03-17 05:44] LABS: Anion Gap 6 mmol/L (4-12); Blood Urea Nitrogen 16 mg/dL (7-17); Calcium 8.6 mg/dL (8.4-10.2); Carbon Dioxide 30 mmol/L (22-30); Chloride 104 mmol/L (98-107); Estimated CRCL calculation 42 ml/min; Estimated Glomerular Filt Rate 45; Glucose 82 mg/dL (65-110); Potassium 3.3 mmol/L (3.4-5.0); Sodium 140 mmol/L (137-145)
[2025-03-17] MEDS: cefTRIAXone 1 GM in SODIUM CHLORIDE 0.9% IV 50 ML 100 ML IVPB (05:57)
--- NOTE | 2025-03-17 07:35 | P.PNIM_ITS ---
Assessment and Plan Assessment and Plan (1) Near syncope: Code(s): R55 - Syncope and collapse Status: Acute Assessment and Plan: -presented with hypoglycemia and significant orthostasis (BP 55/43 upon standing) - s/p multiple liters of IV fluids with improvement. - echo with LVH, EF >70, mild-mod aortic stenosis - cardio consulted - recommended to stop lisinopril-HCTZ. Continue to monitor on telemetry. -orthostasis resolved with IV fluids and stopping BP medication -ordered compression stockings. Encouraged PO hydration and changing positions slowly. (2) Chest pain: Code(s): R07.9 - Chest pain, unspecified Status: Acute Assessment and Plan: - EKG with no acute ischemic changes - troponins negative x3 - prior history of CAD s/p CABG - HEART score 6 -cardiology consulted - no further ischemic work-up planned (3) UTI (urinary tract infection): Code(s): N39.0 - Urinary tract infection, site not specified Status: Acute Assessment and Plan: - UA with 1+ ketones, 2+ LE, WBC 11-20, 4+ bacteria - started on IV Rocephin - follow-up urine culture and blood culture (4) Atrial fibrillation, new onset: Code(s): I48.91 - Unspecified atrial fibrillation Status: Acute Assessment and Plan: -her EKG was read is atrial fibrillation. May be sinus with PVCs - CHADs-VASc - 4. Anticoagulation held on admit due to concerns for frequent falls -cardiology consulted - low suspicion for Afib. Continue to monitor on tele. (5) Type 2 diabetes mellitus with diabetic neuropathy, with long-term current use of insulin: Code(s): E11.40 - Type 2 diabetes mellitus with diabetic neuropathy, unspecified; Z79.4 - half-way (current) use of insulin Status: Acute Assessment and Plan: - episodes of hypoglycemia, glucose 67 in ER - on basal insulin and semaglutide - Hgb A1c only 4.7 - holding insulin -continue diabetic diet. -hypoglycemic protocol -Accu-Cheks AC and HS with sliding scale insulin. (6) Hypertension: Code(s): I10 - Essential (primary) hypertension Status: Acute Assessment and Plan: - lisinopril-HCTZ held due to orthostasis - monitor BP (7) Anxiety and depression: Code(s): F41.9 - Anxiety disorder, unspecified; F32.9 - Major depressive disorder, single episode, unspecified Status: Acute Assessment and Plan: -continue with BuSpar, bupropion, and Lexapro (8) MARIYA (obstructive sleep apnea): Code(s): G47.33 - Obstructive sleep apnea (adult) (pediatric) Status: Acute Assessment and Plan: -the patient stated that her CPAP machine broke at home. -contiue CPAP qHS while admitted (9) Chronic kidney disease: Code(s): N18.9 - Chronic kidney disease, unspecified Status: Acute Assessment and Plan: -Cr 1.23, near baseline - avoid nephrotoxins Plan Code status: full code DVT prophylaxis: SCDs Dispo: likely home tomorrow. Follow-up PT/OT recs Medical Record Review I have reviewed the following patient records and this information was taken into consideration when formulating the assessment and plan.: previous labs Subjective Date/time seen: 03/17/25 07:35 Interval history: Patient seen and examined at bedside. Review of Systems Review of Systems: All systems reviewed & are unremarkable except as noted in HPI and below Exam Narrative: General: NAD Eyes: EOMI ENT: neck supple Cardiovascular: Regular rate and rhythm Respiratory: Clear to auscultation, respirations even and unlabored on RA Gastrointestinal: Soft, non tender Genitourinary: no suprapubic tenderness Musculoskeletal: No edema Skin: warm, dry Neuro: Alert. Psych: Mood appropriate Objective Data Vital Signs Vital Signs: Vital Signs - 24 hr 03/16/25 07:44 03/16/25 08:00 03/16/25 08:00 Temperature 97.8 F Pulse Rate 73 96 Respiratory Rate 20 Blood Pressure 126/53 L Pulse Oximetry 97 96 Oxygen Delivery Room Air 03/16/25 08:10 03/16/25 08:10 03/16/25 08:11 Temperature Pulse Rate 77 87 93 Respiratory Rate Blood Pressure 118/62 106/61 79/23 L Pulse Oximetry 98 99 96 Oxygen Delivery 03/16/25 10:00 03/16/25 11:36 03/16/25 12:00 Temperature 98.0 F Pulse Rate 71 76 Respiratory Rate 16 Blood Pressure 99/42 L Pulse Oximetry 97 97 Oxygen Delivery Room Air 03/16/25 12:00 03/16/25 16:00 03/16/25 16:00 Temperature 98.4 F Pulse Rate 91 55 L 102 H Respiratory Rate 18 Blood Pressure 125/48 L Pulse Oximetry 96 Oxygen Delivery 03/16/25 20:00 03/16/25 20:00 03/16/25 20:00 Temperature 98.3 F Pulse Rate 75 76 Respiratory Rate 16 Blood Pressure 134/75 Pulse Oximetry 96 Oxygen Delivery Room Air 03/16/25 20:54 03/16/25 20:57 03/17/25 00:00 Temperature 98.4 F Pulse Rate 84 87 76 Respiratory Rate 16 Blood Pressure 115/61 114/56 L 127/58 L Pulse Oximetry 95 98 98 Oxygen Delivery 03/17/25 00:00 03/17/25 04:00 03/17/25 04:32 Temperature 97.9 F Pulse Rate 84 86 81 Respiratory Rate 16 Blood Pressure 121/60 Pulse Oximetry 99 Oxygen Delivery Intake/Output Intake/Output: Intake & Output 03/14/25 03/15/25 03/16/25 03/17/25 23:59 23:59 23:59 23:59 Intake Total 1500 1916 350 Output Total 0 Balance 1500 1916 350 Meds/Results Medications: Active Medications Generic Name Dose Route Start Last Admin Trade Name Freq PRN Reason Stop Dose Admin Acetaminophen 650 mg 03/16/25 00:07 03/16/25 09:22 Acetaminophen 325 Mg Tablet PO 650 mg Q4H PRN Administration Mild Pain (1-3) or Fever Albuterol 2 puff 03/16/25 04:46 Albuterol Sulfate (*Sp) Aerosol 1 Puff INHALATION Q4H PRN Shortness Of Breath Or Wheezing Atorvastatin Calcium 40 mg 03/16/25 21:00 03/16/25 21:18 Atorvastatin 40 Mg Tablet PO 40 mg HS JANA Administration Bupropion HCl 150 mg 03/16/25 09:00 03/16/25 09:23 Bupropion Hcl Xl (24 Hr) 150 Mg Tabcr PO 150 mg QAM JANA Administration Buspirone HCl 5 mg 03/16/25 09:00 03/16/25 21:18 Buspirone Hcl 5 Mg Tablet PO 5 mg Q12HR JANA Administration Buspirone HCl 2.5 mg 03/16/25 09:00 03/16/25 21:18 Buspirone Hcl 2.5 Mg Tablet PO 2.5 mg Q12HR JANA Administration Clopidogrel Bisulfate 75 mg 03/16/25 09:00 03/16/25 09:23 Clopidogrel Bisulfate 75 Mg Tablet BY MOUTH 75 mg DAILY JANA Administration Dextrose 12.5 gm 03/16/25 00:08 Dextrose 50% 25 Gm/50 Ml Syringe IV PUSH PRN PRN Hypoglycemia Protocol Escitalopram Oxalate 10 mg 03/16/25 09:00 03/16/25 09:23 Escitalopram Oxalate 10 Mg Tablet BY MOUTH 10 mg DAILY JANA Administration Gabapentin 300 mg 03/16/25 21:00 03/16/25 21:18 Gabapentin 300 Mg Capsule BY MOUTH 300 mg HS JANA Administration Glucagon 1 mg 03/16/25 00:08 Glucagon For Inj 1 Mg Vial IM PRN PRN Hypoglycemia Protocol Glucose 15 gm 03/16/25 00:08 Glucose Oral Gel 15 Gm Of Glucse In 37.5 Gm Tube PO PRN PRN Hypoglycemia Protocol Dextrose 1,000 mls @ 100 mls/hr 03/16/25 00:08 Dextrose 5% 1,000 Ml IVPB PRN PRN Hypoglycemia Protocol Ceftriaxone Sodium 1 gm/ 50 mls @ 100 mls/hr 03/16/25 06:00 03/17/25 06:27 Sodium Chloride IVPB Infused Q24H JANA Infusion Insulin Aspart 2 - 5 units 03/16/25 08:00 03/16/25 16:46 Insulin Aspart (*Bkc) 100 Units/Ml SUB-Q Not Given TIDWM [facility] Protocol Miscellaneous Information 1 each 03/16/25 09:00 03/16/25 09:23 Nystatin 100,000 Unit/Gram Powder Autosub To Tolnaftate Powder XX 03/17/25 08:59 1 each Q12HR JANA Administration Ondansetron HCl 4 mg 03/16/25 00:07 Ondansetron Inj 4 Mg/2 Ml Vial IV PUSH Q4H PRN Nausea Potassium Chloride 40 meq 03/17/25 07:34 Potassium Chloride 20 Meq Packet (For Liquid) PO 03/17/25 07:35 ONCE ONE Radiology Results: ITS Impressions Head CT 03/15/25 16:10 IMPRESSION: 1. No acute intracranial abnormality. Cervical Spine CT 03/15/25 16:14 IMPRESSION: 1. No acute abnormality of the cervical spine. Chest X-Ray 03/15/25 19:54 Impression: 1: No acute cardiopulmonary disease. Labs Labs: Laboratory Results - last 24 hr 03/16/25 03/16/25 03/16/25 11:09 16:25 20:49 WBC RBC Hgb Hct MCV MCH MCHC RDW Plt Count MPV Sodium Potassium Chloride Carbon Dioxide Anion Gap BUN Creatinine Estim Creat Clear Calc Estimated GFR Glucose POC Capillary Glucose 95 104 96 Calcium 03/17/25 04:31 WBC 4.9 RBC 3.73 L Hgb 10.8 L Hct 33.3 L MCV 89.3 MCH 29.0 MCHC 32.4 RDW 12.9 Plt Count 199 MPV 9.2 Sodium 140 Potassium 3.3 L Chloride 104 Carbon Dioxide 30 Anion Gap 6 BUN 16 Creatinine 1.18 H Estim Creat Clear Calc 42 Estimated GFR 45 L Glucose 82 POC Capillary Glucose Calcium 8.6 Quality VTE Prophylaxis VTE prophylaxis: mechanical ordered
[2025-03-17 08:00] VITALS: PULSE 85
[2025-03-17] MEDS: buPROPion HCL XL (24 HR) 150 MG TABCR PO (09:02)
[2025-03-17] MEDS: POTASSIUM CHLORIDE 20 MEQ PACKET (FOR LIQUID) 40 MEQ PO (09:02)
[2025-03-17] MEDS: busPIRone HCL 2.5 MG TABLET PO (09:03)
[2025-03-17] MEDS: ESCITALOPRAM OXALATE 10 MG TABLET BY MOUTH (09:03)
[2025-03-17] MEDS: CLOPIDOGREL BISULFATE 75 MG TABLET BY MOUTH (09:03)
--- NOTE | 2025-03-17 13:54 | P.PNCA_ITS ---
Progress Note: A&P Assessment and Plan (1) Hx of CABG: Code(s): Z95.1 - Presence of aortocoronary bypass graft Status: Acute (2) Atrial fibrillation, new onset: Code(s): I48.91 - Unspecified atrial fibrillation Status: Acute (3) Orthostatic hypotension: Code(s): I95.1 - Orthostatic hypotension Status: Acute Plan 74-year-old lady with: Symptomatic hypotension seems to have resolved with discontinuance of ARMINDA inhibitor and diuretic Coronary artery disease stable with previous bypass grafting Asymptomatic paroxysmal AFib recommend starting anticoagulation with apixaban. Patient is stable for discharge today as her hypotension has resolved. Demario Suarez MD [facility] Subjective Date/time seen: Date of service: 03/17/25 13:54 Interval history: Follow-up visit in this 74-year-old lady with: Coronary artery disease previous bypass grafting and now with apparent diagnosis of paroxysmal atrial fib which is new but with which she is asymptomatic. Patient was admitted to the hospital with symptomatic hypotension which has been resolved with discontinuance of lisinopril/hydrochlorothiazide. She feels well today was ambulating the halls without any symptoms and would like to be discharged. Spoke to the patient about her atrial fibrillation and the indication for systemic anticoagulation. Exam Const: General: comfortable Other: Very pleasant obese woman in no distress of any kind comfortable and cooperative HENMT: Face/Nose/Sinus: Normal nares present Eyes: Sclera: sclerae normal Neck: Neck: supple and no JVD Resp: Effort & Inspection: normal respiratory effort Auscultation: clear to auscultation bilaterally Cardio: Rate: regular rate Rhythm: regular rhythm Other: Patient has a soft grade 2 systolic murmur that does not radiate from the left sternal border. No diastolic murmur no gallop GI: Auscultation: normal bowel sounds Skin: General skin exam: normal color Neuro: Other: Alert and oriented x3 Extrem: General: normal to inspection Objective Data Vital Signs Vital Signs: Vital Signs - 24 hr 03/16/25 16:00 03/16/25 16:00 03/16/25 20:00 Temperature 36.9 C 36.8 C Pulse Rate 55 L 102 H 75 Respiratory Rate 18 16 Blood Pressure 125/48 L 134/75 Pulse Oximetry 96 96 Oxygen Delivery 03/16/25 20:00 03/16/25 20:00 03/16/25 20:54 Temperature Pulse Rate 76 84 Respiratory Rate Blood Pressure 115/61 Pulse Oximetry 95 Oxygen Delivery Room Air 03/16/25 20:57 03/17/25 00:00 03/17/25 00:00 Temperature 36.9 C Pulse Rate 87 76 84 Respiratory Rate 16 Blood Pressure 114/56 L 127/58 L Pulse Oximetry 98 98 Oxygen Delivery 03/17/25 04:00 03/17/25 04:32 03/17/25 08:00 Temperature 36.6 C Pulse Rate 86 81 Respiratory Rate 16 Blood Pressure 121/60 Pulse Oximetry 99 Oxygen Delivery Room Air 03/17/25 08:00 03/17/25 10:22 Temperature Pulse Rate 85 Respiratory Rate Blood Pressure Pulse Oximetry Oxygen Delivery Room Air Intake/Output Intake/Output: Intake & Output 03/14/25 03/15/25 03/16/25 03/17/25 23:59 23:59 23:59 23:59 Intake Total 1500 1916 1140 Output Total 0 Balance 1500 1916 1140 Meds/Results Medications: Active Medications Generic Name Dose Route Start Last Admin Trade Name Freq PRN Reason Stop Dose Admin Acetaminophen 650 mg 03/16/25 00:07 03/16/25 09:22 Acetaminophen 325 Mg Tablet PO 650 mg Q4H PRN Administration Mild Pain (1-3) or Fever Albuterol 2 puff 03/16/25 04:46 Albuterol Sulfate (*Sp) Aerosol 1 Puff INHALATION Q4H PRN Shortness Of Breath Or Wheezing Atorvastatin Calcium 40 mg 03/16/25 21:00 03/16/25 21:18 Atorvastatin 40 Mg Tablet PO 40 mg HS JANA Administration Bupropion HCl 150 mg 03/16/25 09:00 03/17/25 09:02 Bupropion Hcl Xl (24 Hr) 150 Mg Tabcr PO 150 mg QAM JANA Administration Buspirone HCl 5 mg 03/16/25 09:00 03/17/25 09:03 Buspirone Hcl 5 Mg Tablet PO 5 mg Q12HR JANA Administration Buspirone HCl 2.5 mg 03/16/25 09:00 03/17/25 09:03 Buspirone Hcl 2.5 Mg Tablet PO 2.5 mg Q12HR JANA Administration Clopidogrel Bisulfate 75 mg 03/16/25 09:00 03/17/25 09:03 Clopidogrel Bisulfate 75 Mg Tablet BY MOUTH 75 mg DAILY JANA Administration Dextrose 12.5 gm 03/16/25 00:08 Dextrose 50% 25 Gm/50 Ml Syringe IV PUSH PRN PRN Hypoglycemia Protocol Escitalopram Oxalate 10 mg 03/16/25 09:00 03/17/25 09:03 Escitalopram Oxalate 10 Mg Tablet BY MOUTH 10 mg DAILY JANA Administration Gabapentin 300 mg 03/16/25 21:00 03/16/25 21:18 Gabapentin 300 Mg Capsule BY MOUTH 300 mg HS JANA Administration Glucagon 1 mg 03/16/25 00:08 Glucagon For Inj 1 Mg Vial IM PRN PRN Hypoglycemia Protocol Glucose 15 gm 03/16/25 00:08 Glucose Oral Gel 15 Gm Of Glucse In 37.5 Gm Tube PO PRN PRN Hypoglycemia Protocol Dextrose 1,000 mls @ 100 mls/hr 03/16/25 00:08 Dextrose 5% 1,000 Ml IVPB PRN PRN Hypoglycemia Protocol Ceftriaxone Sodium 1 gm/ 50 mls @ 100 mls/hr 03/16/25 06:00 03/17/25 06:27 Sodium Chloride IVPB Infused Q24H JANA Infusion Insulin Aspart 2 - 5 units 03/16/25 08:00 03/17/25 12:30 Insulin Aspart (*Bkc) 100 Units/Ml SUB-Q Not Given TIDWM [facility] Protocol Ondansetron HCl 4 mg 03/16/25 00:07 Ondansetron Inj 4 Mg/2 Ml Vial IV PUSH Q4H PRN Nausea Radiology Results: ITS Impressions Head CT 03/15/25 16:10 IMPRESSION: 1. No acute intracranial abnormality. Cervical Spine CT 03/15/25 16:14 IMPRESSION: 1. No acute abnormality of the cervical spine. Chest X-Ray 03/15/25 19:54 Impression: 1: No acute cardiopulmonary disease. Labs Labs: Laboratory Results - last 24 hr 03/16/25 03/16/25 03/17/25 16:25 20:49 04:31 WBC 4.9 RBC 3.73 L Hgb 10.8 L Hct 33.3 L MCV 89.3 MCH 29.0 MCHC 32.4 RDW 12.9 Plt Count 199 MPV 9.2 Sodium 140 Potassium 3.3 L Chloride 104 Carbon Dioxide 30 Anion Gap 6 BUN 16 Creatinine 1.18 H Estim Creat Clear Calc 42 Estimated GFR 45 L Glucose 82 POC Capillary Glucose 104 96 Calcium 8.6 03/17/25 03/17/25 07:33 12:18 WBC RBC Hgb Hct MCV MCH MCHC RDW Plt Count MPV Sodium Potassium Chloride Carbon Dioxide Anion Gap BUN Creatinine Estim Creat Clear Calc Estimated GFR Glucose POC Capillary Glucose 81 103 Calcium
--- NOTE | 2025-03-17 14:22 | P.DS_ITS ---
DS: Admitting Diagnosis Discharge Date 03/17/25 Admitting Diagnosis - near syncope - orthostatic hypotension - atrial fibrillation DS: Discharge Diagnosis Discharge Diagnosis (1) Near syncope: Code(s): R55 - Syncope and collapse Status: Acute (2) Chest pain: Code(s): R07.9 - Chest pain, unspecified Status: Acute (3) UTI (urinary tract infection): Code(s): N39.0 - Urinary tract infection, site not specified Status: Acute (4) Atrial fibrillation, new onset: Code(s): I48.91 - Unspecified atrial fibrillation Status: Acute (5) Type 2 diabetes mellitus with diabetic neuropathy, with long-term current use of insulin: Code(s): E11.40 - Type 2 diabetes mellitus with diabetic neuropathy, unspecified; 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 - services 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 Status: Acute (6) Hypertension: Code(s): I10 - Essential (primary) hypertension Status: Acute (7) Anxiety and depression: Code(s): F41.9 - Anxiety disorder, unspecified; F32.9 - Major depressive disorder, single episode, unspecified Status: Acute (8) MARIYA (obstructive sleep apnea): Code(s): G47.33 - Obstructive sleep apnea (adult) (pediatric) Status: Acute (9) Chronic kidney disease: Code(s): N18.9 - Chronic kidney disease, unspecified Status: Acute DS: Summary Hospital Course Reason for hospitalization: - near syncope - orthostatic hypotension - atrial fibrillation Hospital Course: The patient is a 74-year-old female admitted following a fall with head strike in the setting of near syncope, orthostatic hypotension, and dizziness. Initial evaluation revealed significant orthostasis with hypotension, hypoglycemia, and concern for a cardiac arrhythmia. Imaging, including CT head and cervical spine, showed no acute intracranial or cervical spine abnormalities. She was treated with multiple liters of IV fluids with subsequent resolution of orthostatic hypotension. Her home lisinopril?hydrochlorothiazide was held and ultimately discontinued, with improvement in blood pressures. Telemetry and serial ECGs were reviewed, and Cardiology was consulted for concern of new-onset atrial fibrillation. Cardiology ultimately diagnosed paroxysmal atrial fibrillation and initiated apixaban (Eliquis), recommending close outpatient cardiology follow- up. Chest pain workup was negative with serial troponins and no evidence of acute ischemia. Urinalysis was abnormal and concerning for urinary tract infection; she was treated initially with IV ceftriaxone and transitioned to oral cefpodoxime on discharge to complete a 5-day total antibiotic course. Will follow culture results on discharge and call for adjustments in antibiotic if appropriate. Her insulin was held due to recurrent hypoglycemia and low A1c, and she was instructed to stop insulin therapy and follow up closely with her PCP. At discharge, the patient was hemodynamically stable, ambulating without dizziness, and tolerating oral intake. She was instructed to discontinue blood pressure medications, monitor and log blood pressures and blood glucose at home, and bring this log to her follow-up appointment. She was advised to follow up closely with her primary care provider and to establish outpatient cardiology care as recommended. She was discharged home in stable condition. Time Spent with Patient Time attestation: Total time spent providing and/or coordinating discharge services: Time spent: Greater than 30 minutes Exam Narrative: General: Well-appearing Eyes: EOMI ENT: neck supple Cardiovascular: Irregularly irregular Respiratory: Clear to auscultation, respirations even and unlabored on RA Gastrointestinal: Soft, non tender Genitourinary: no suprapubic tenderness Musculoskeletal: No edema Skin: warm, dry Neuro: Alert. Psych: Mood appropriate DS: Data Data Completed and Pending Completed studies during hospitalization: ITS Impressions Head CT 03/15/25 16:10 IMPRESSION: 1. No acute intracranial abnormality. Cervical Spine CT 03/15/25 16:14 IMPRESSION: 1. No acute abnormality of the cervical spine. Chest X-Ray 03/15/25 19:54 Impression: 1: No acute cardiopulmonary disease. Labs on day of discharge: Labs from last 24 hours 03/17/25 03/17/25 03/17/25 12:18 07:33 04:31 WBC 4.9 RBC 3.73 L Hgb 10.8 L Hct 33.3 L MCV 89.3 MCH 29.0 MCHC 32.4 RDW 12.9 Plt Count 199 MPV 9.2 Sodium 140 Potassium 3.3 L Chloride 104 Carbon Dioxide 30 Anion Gap 6 BUN 16 Creatinine 1.18 H Estim Creat Clear Calc 42 Estimated GFR 45 L Glucose 82 POC Capillary Glucose 103 81 Calcium 8.6 03/16/25 03/16/25 20:49 16:25 WBC RBC Hgb Hct MCV MCH MCHC RDW Plt Count MPV Sodium Potassium Chloride Carbon Dioxide Anion Gap BUN Creatinine Estim Creat Clear Calc Estimated GFR Glucose POC Capillary Glucose 96 104 Calcium Discharge Plan Discharge Attending physician on discharge: Jenny Hansen Consulting providers: Sasha Calixto; Demario Suarez Discharging Clinician: Sasha Calixto. Anticipated Discharge Date/Time: 03/17/25 14:24 Patient Disposition: Home Activity: as tolerated Diet: regular Discharge Instructions: Why You Were in the Hospital You were admitted to the hospital because you experienced low blood pressure when standing up (orthostatic hypotension). This caused symptoms such as dizziness or lightheadedness. We determined this was likely caused by your blood pressure medication combined with dehydration. You were also diagnosed with a urinary tract infection (UTI). Important Medication Changes STOP taking lisinopril-HCTZ (hydrochlorothiazide).?Do not take this medication anymore. This combination blood pressure medication was contributing to your low blood pressure when standing. CONTINUE taking cefpodoxime?as prescribed to treat your urinary tract infection. Take all doses as directed, even if you feel better. We will call you with the results of your urine culture. If the bacteria causing your infection requires a different antibiotic, we will contact you to change your prescription. Your insulin has been STOPPED.?Your hemoglobin A1c level was 4.9%, which is too low and indicates you do not need insulin at this time. Your primary care doctor will monitor your blood sugar levels. Preventing Low Blood Pressure When Standing To prevent your symptoms from returning, follow these important steps: Drink plenty of fluids.?Aim for 2 to 2.5 liters (about 8-10 cups) of water or other fluids each day. Staying well-hydrated helps maintain your blood pressure and prevents dizziness when standing. Change positions slowly.?This is very important to prevent falls: * When getting out of bed, sit on the edge of the bed for 1-2 minutes before standing * When standing up from a chair, do so slowly and wait a moment before walking * Avoid standing still for long periods * If you feel dizzy when standing, sit or lie down immediately Other helpful tips: * Avoid hot showers, hot tubs, and saunas, as heat can lower your blood pressure * Eat smaller, more frequent meals instead of large meals * Avoid alcohol, which can worsen low blood pressure * If you feel dizzy while standing, try crossing your legs or tensing your leg muscles, which can help raise your blood pressure Warning Signs Call your doctor or return to the emergency department if you experience: * Severe dizziness or fainting * Falls * Chest pain or shortness of breath * Fever, chills, or worsening urinary symptoms * Confusion or severe weakness Follow-Up Care You must follow up with your primary care doctor within 1-2 weeks?of leaving the hospital. Your doctor needs to: * Check your blood pressure, both sitting and standing * Review all your medications * Monitor your blood sugar levels now that insulin has been stopped * Discuss long-term management of your blood pressure Make an appointment for follow-up with cardiology. Make this appointment before you leave the hospital or call your doctor's office within 1-2 days. Your Diagnosis You were diagnosed with?atrial fibrillation?(also called AFib or AF), which is an irregular heart rhythm. Your heart rate has been controlled with medication, and you are being started on a blood thinner called?Eliquis (apixaban)?to reduce your risk of stroke. Why You Need Eliquis Atrial fibrillation increases your risk of blood clots forming in your heart, which can travel to your brain and cause a stroke. Eliquis is a blood thinner (anticoagulant) that reduces your risk of stroke by 60-80% compared to no treatment.?It is important to take this medication exactly as prescribed to protect you from stroke. How to Take Eliquis * Dose: Take your prescribed dose (usually 5 mg or 2.5 mg)?twice daily * Timing: Take it at the same times each day, approximately 12 hours apart (for example, 8 AM and 8 PM) * With or without food: Eliquis can be taken with or without food * If you miss a dose: Take it as soon as you remember on the same day, then continue with your regular schedule the next day. Do NOT take a double dose to make up for a missed dose * NEVER stop taking Eliquis without talking to your doctor first?- stopping suddenly increases your risk of stroke Important Side Effects of Eliquis The most important side effect is bleeding.?Because Eliquis is a blood thinner, you may bruise more easily and it may take longer than usual for bleeding to stop. Common side effects?(occur in more than 1% of patients) include: * Nosebleeds (epistaxis) * Bleeding gums * Bruising more easily * Blood in urine (pink or red urine) * Heavier menstrual periods (if applicable) * Coughing up blood * Rectal bleeding Serious bleeding?- Seek emergency care immediately if you experience: * Unusual bleeding that will not stop * Bleeding from gums or nose that happens often or will not stop * Menstrual bleeding that is heavier than normal * Anthem, red, or brown urine * Red or black stools (looks like tar) * Coughing up blood or blood clots * Vomiting blood or material that looks like coffee grounds * Severe headache, dizziness, or weakness * Pain, swelling, or new drainage at wound sites * Any fall or head injury What to Avoid While Taking Eliquis * Do NOT take aspirin or NSAIDs?(such as ibuprofen, Advil, Motrin, Aleve, naproxen) unless specifically instructed by your doctor - these increase your bleeding risk * Limit alcohol consumption?- excessive alcohol increases bleeding risk * Avoid contact sports?or activities with high risk of injury * Check with your doctor or pharmacist?before starting ANY new medications, including kxsk-cop-vsuxzmr drugs, vitamins, or supplements Before Any Medical or Dental Procedures Always tell your doctors, dentists, and other healthcare providers that you are taking Eliquis?before any surgery, dental work, or medical procedures.Do not stop taking Eliquis on your own - your doctor will tell you if and when to stop it before a procedure. When to Seek Emergency Care Go to the emergency room or call 911 if you experience: * Signs of serious bleeding (listed above) * Severe headache or any head injury or fall * Sudden severe back pain * Sudden weakness, numbness, or difficulty speaking (signs of stroke) * Sudden severe abdominal pain Follow-Up Care * Schedule a follow-up appointment?with your primary care doctor or track layer head within 1-2 weeks * You do NOT need routine blood tests to monitor Eliquis (unlike warfarin) * Continue taking all your other prescribed medications * Keep all follow-up appointments Lifestyle Modifications for Atrial Fibrillation To help manage your atrial fibrillation and reduce complications: * Maintain a healthy weight or lose weight if overweight * Exercise regularly as recommended by your doctor * Do not smoke - quit if you currently smoke * Limit or eliminate alcohol consumption * Control your blood pressure * Manage diabetes if you have it * Reduce stress Important Reminders * Take Eliquis?every day, twice a day?- missing doses increases your stroke risk * Do NOT stop taking Eliquis without talking to your doctor first * Carry a card or wear medical alert jewelry stating you take a blood thinner * Report any unusual bleeding to your doctor promptly * If you become or plan to become , contact your doctor immediately * Uncontrolled sleep apnea can contribute to atrial fibrillation. Follow-up with your primary care provider to get a new CPAP machine. Questions or Concerns If you have any questions or concerns about your atrial fibrillation or Eliquis, contact your doctor's office. For medical emergencies, call 911 or go to the nearest emergency room. Patient Instructions: Antibiotic Form Patient Language: [place] Stand Alone Forms: General Discharge Information Follow-up/Referrals: Demario Suarez MD [Physician, Cardiology] - Call for Appointment Referral Note: follow-up Discharge Medications: New Eliquis 5 mg Tablet 5 mg PO Q12HR 30 Days Qty: 60 0RF cefpodoxime 100 mg tablet 100 mg PO BID Qty: 6 0RF Rx Instructions: must administer with a meal/food Continued (DME) insulin syringe-needle U-100 [Comfort EZ Insulin Syringe] 0.5 mL 31 gauge x 5/16 syringe See Rx Instructions .Route Qty: 100 0RF Rx Instructions: use 1 time a day (DME) Dexcom G7 [employer] Misc See Rx Instructions .Route Qty: 1 0RF Rx Instructions: As directed bupropion HCl [Wellbutrin XL] 150 mg tablet extended release 24 hr 150 mg PO QAM Qty: 90 1RF escitalopram oxalate 20 mg tablet See Rx Instructions .ROUTE .COMPLEX Qty: 30 10RF Dose Instruction: TAKE 1 TABLET BY MOUTH DAILY Rx Instructions: TAKE 1 TABLET BY MOUTH DAILY gabapentin 300 mg capsule See Rx Instructions .ROUTE .COMPLEX Qty: 30 10RF Dose Instruction: TAKE 1 CAPSULE BY MOUTH AT BEDTIME Rx Instructions: TAKE 1 CAPSULE BY MOUTH AT BEDTIME atorvastatin 40 mg tablet 40 mg PO HS Qty: 90 1RF (DME) Dexcom G7 Sensor Device See Rx Instructions .Route Qty: 2 6RF Rx Instructions: As directed acetaminophen [Acetaminophen Extra Strength] 500 mg tablet 1,000 mg PO QID PRN (Reason: pain (scale score 4-6)) diphenhydramine HCl [Allergy (diphenhydramine)] 25 mg capsule 25 - 50 mg PO HS PRN (Reason: allergy symptoms) buspirone 7.5 mg tablet 7.5 mg PO Q12H (DME) blood-glucose meter [OneTouch Verio Flex meter] [facility] See Rx Instructions .Route Qty: 1 0RF Rx Instructions: Check blood sugars twice daily As directed (DME) OneTouch Verio test strips Strip See Rx Instructions .Route Qty: 100 2RF Rx Instructions: Check blood sugars twice daily As directed (DME) pen needle, diabetic [Comfort EZ Pen Lostant] 29 gauge x 1/2 needle See Rx Instructions .ROUTE .MEDSUPPLY Qty: 400 1RF Rx Instructions: Use (1) needle four times daily for Insulin injections Ozempic 1 mg/dose (4 mg/3 mL) pen injector 1 mg subcut WEEKLY Qty: 3 0RF (DME) lancets [OneTouch Delica Plus Lancet] [facility] See Rx Instructions .ROUTE .COMPLEX Qty: 100 4RF Dose Instruction: USE 1 LANCET TO TEST BLOOD SUGAR TWICE A DAY Rx Instructions: USE 1 LANCET TO TEST BLOOD SUGAR TWICE A DAY nystatin 100,000 unit/gram powder See Rx Instructions .ROUTE .COMPLEX Qty: 180 1RF Dose Instruction: APPLY TOPICALLY THREE TIMES A DAY Rx Instructions: APPLY TOPICALLY THREE TIMES A DAY albuterol sulfate 90 mcg/actuation HFA aerosol inhaler 2 inh inhalation Q4H PRN (Reason: shortness of breath or wheezing) Qty: 8.5 2RF clopidogrel 75 mg tablet See Rx Instructions .ROUTE .COMPLEX Qty: 30 3RF Dose Instruction: TAKE 1 TABLET BY MOUTH DAILY Rx Instructions: TAKE 1 TABLET BY MOUTH DAILY Discontinued naproxen sodium [Aleve] 220 mg Capsule 220 mg PO Q12H PRN (Reason: pain (scale score 4-6)) lisinopril-hydrochlorothiazide 20-12.5 mg tablet See Rx Instructions .ROUTE .COMPLEX Qty: 32 1RF Dose Instruction: TAKE 1 TABLET BY MOUTH THREE TIMES A WEEK (TUESDAYS, THURSDAYS, AND SATURDAYS) *EMERGENCY REFILL* Rx Instructions: TAKE 1 TABLET BY MOUTH THREE TIMES A WEEK (TUESDAYS, THURSDAYS, AND SATURDAYS) insulin degludec [Tresiba FlexTouch U-100] 100 unit/mL (3 mL) insulin pen 20 unit subcut DAILY Qty: 15 4RF Date of admission: 03/16/25 00:08 Primary Care Provider: Valorie Perry Admitting Provider: Kishore Leija Attending physician on admission: Kishore Leija Condition: Stable
== END 2025-03-17 14:55 | disposition home or self-care (01) ==
LOC: ANHED 03-16 00:40 → ANHIMU 03-16 04:44 → ANH2MED 03-17 11:37 → ANHIMU 03-19 07:56
PROVIDERS: Nurse Practitioner; Admitting Provider Internal Medicine; Emergency Provider Student in an Organized Health Care Education/Training Program; PCP Nurse Practitioner Family; Visit Provider General Practice
DX: I95.1 Orthostatic hypotension (principal); R07.9 Chest pain, unspecified; W19.XXXA Unspecified fall, initial encounter; N39.0 Urinary tract infection, site not specified; I48.0 Paroxysmal atrial fibrillation; I45.10 Unspecified right bundle-branch block; I25.2 Old myocardial infarction; I12.9 Hypertensive chronic kidney disease with stage 1 through stage 4 chronic kidney disease, or unspecified chronic kidney disease; N18.9 Chronic kidney disease, unspecified; E11.22 Type 2 diabetes mellitus with diabetic chronic kidney disease; Z79.4 Long term (current) use of insulin; Z79.85 Long-term (current) use of injectable non-insulin antidiabetic drugs; Z86.73 Personal history of transient ischemic attack (TIA), and cerebral infarction without residual deficits; I25.10 Atherosclerotic heart disease of native coronary artery without angina pectoris; J45.909 Unspecified asthma, uncomplicated; G47.33 Obstructive sleep apnea (adult) (pediatric); Z95.1 Presence of aortocoronary bypass graft; Z87.891 Personal history of nicotine dependence; F41.8 Other specified anxiety disorders; E11.40 Type 2 diabetes mellitus with diabetic neuropathy, unspecified; Z79.02 Long term (current) use of antithrombotics/antiplatelets
CPT/HCPCS: 36415; 70450; 71045; 72125; 80048; 80053; 81001; 82948; 83036; 83690; 83880; 84443; 84484; 85025; 85027; 85610; 85730; 87040; 87086; 93005; 96360; 96361; 96374; 97161; 99285; A9270; C8929; G0378; J0696; J7040; Q9957